=== PATIENT | female | born 1955 | race Caucasian/White ===

== ENCOUNTER → 2019-07-04 17:14 | Outpatient (CLI) | payer MEDICARE, SELFPAY ==
--- NOTE | ~2019-07-04 | MM_ITS ---
EXAMINATION: MM screening ortiz BI w андрей HISTORY: Screening mammogram TECHNIQUE: Craniocaudal and mediolateral oblique 3-D tomosynthesis images were obtained and synthetic 2-D images were generated. CAD analysis was submitted and interpreted. COMPARISON: 10/22/2006 BREAST PARENCHYMAL COMPOSITION: There are scattered areas of fibroglandular density. FINDINGS: There is no evidence of suspicious mass, calcification, or architectural distortion to sugg est malignancy in either breast. There has been no suspicious interval change. IMPRESSION: 1. No mammographic evidence of malignancy. 2. Recommend routine screening mammography in one year. BI-RADS Category 1: Negative Reviewed, dictated and finalized at location A. 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
== END ==
PROVIDERS: Visit Provider Obstetrics & Gynecology
DX: Z12.31 Encounter for screening mammogram for malignant neoplasm of breast (principal)
CPT/HCPCS: 77063; 77067

== ENCOUNTER 2020-04-07 10:49 | Outpatient (CLI) | payer MEDICARE, SELFPAY ==
--- NOTE | ~2020-04-07 | MR_ITS ---
EXAMINATION: MR brain/brain stem wo con EXAM DATE: 04/07/2020 11:42 INDICATION: Tremors. TECHNIQUE: Magnetic resonance imaging (MRI) of the brain/brain stem obtained without contrast. Sagitt al T1, axial diffusion, gradient echo (T2*), T1, T2, FLAIR sequences obtained. There is no prior st udy for comparison. FINDINGS: There are no areas of restricted diffusion to suggest acute infarction. There is no acute hemorrhage seen on the T2*, a hemosiderin sensitive sequence. No intraparenchymal brain mass lesion. There is mild periventricular and subcortical T2/FLAIR signal hyperintensity, nonspecific but probab ly related to small vessel ischemic disease (microangiopathy). There are no extra-axial collections . Flow voids are seen in the cerebral arteries on the T2-weighted sequences consistent with their ex pected patency. The orbits are unremarkable. Soft tissue is unremarkable. IMPRESSION: 1. No acute intracranial findings. 2. Mild microangiopathy. Reviewed, dictated and finalized at location A. 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
== END 2020-04-07 10:50 | disposition home or self-care (01) ==
PROVIDERS: PCP Family Medicine; Visit Provider Psychiatry & Neurology Neurology
DX: R25.1 Tremor, unspecified (principal); I73.9 Peripheral vascular disease, unspecified
CPT/HCPCS: 70551

== ENCOUNTER 2022-03-03 09:04 | Outpatient (CLI) | payer MEDICARE, SELFPAY ==
--- NOTE | ~2022-03-03 | US_ITS ---
EXAMINATION: US_BCARIMG_US DATE: 03/03/2022 10:59 CDT INDICATION: Right breast mass seen on prior examination. Biopsy requested. TECHNIQUE: Survey imaging of the right breast was performed. The hypoechoic lesion at the 1:00 posit ion, 6 cm from the nipple was targeted for aspiration. The procedure and its risk and benefits were discussed with the patient. Risks included but were not limited to pain, bleeding and infection. The patient verbalized understanding and provided written consent. A time-out was performed to document the patient's name, date of , and site of procedure. The kaylin abel's right breast was prepped and draped in usual sterile fashion. 1% lidocaine was used for loca l anesthesia. Utilizing ultrasound guidance, a 19-gauge needle was advanced into the lesion in the 4 mm hypoechoic mass. Aspiration was performed, obtaining clear fluid. There was complete resolution of the mass following aspiration. The patient tolerated procedure without immediate complication. Sterile bandages were applied over t he aspiration site(s).] FINDINGS: Successful ultrasound-guided aspiration of breast cysts. Patient tolerated procedure well w ithout complication. IMPRESSION: 1. Successful ultrasound-guided aspiration of right breast cyst with complete resolution following a spiration. Reviewed, dictated and finalized at location A. IMPRESSION: 1. Successful ultrasound-guided aspiration of right breast cyst with complete resolution following aspiration.
== END 2022-03-03 09:05 | disposition home or self-care (01) ==
PROVIDERS: PCP Family Medicine; Visit Provider Family Medicine
DX: R92.8 Other abnormal and inconclusive findings on diagnostic imaging of breast (principal)
CPT/HCPCS: 19000; 76942

== ENCOUNTER → 2023-01-25 11:07 | Outpatient (CLI) | payer MEDICARE, SELFPAY ==
--- NOTE | ~2023-01-25 | XR_ITS ---
Left Knee Technique: AP and lateral views were obtained. Clinical History: Pain Findings: No fracture or dislocation is seen. Right knee arthroplasty in place. Soft tissues are unre markable. No joint effusion is seen. Impression: No acute abnormality. Right knee arthroplasty in place. Reviewed, dictated and finalized at location . Impression: No acute abnormality. Right knee arthroplasty in place.
--- NOTE | ~2023-01-25 | XR_ITS ---
Right Knee Technique: AP and lateral views were obtained. Clinical History: Pain Findings: No fracture or dislocation is seen. Right knee arthroplasty in place. Soft tissues are unre markable. No joint effusion is seen. Impression: No acute abnormality. Right knee arthroplasty in place. Reviewed, dictated and finalized at location . Impression: No acute abnormality. Right knee arthroplasty in place.
== END ==
PROVIDERS: PCP Family Medicine; Visit Provider Nurse Practitioner Family
DX: M25.561 Pain in right knee (principal); M25.562 Pain in left knee
CPT/HCPCS: 73560

== ENCOUNTER 2024-02-11 14:36 | Outpatient (CLI) | payer MEDICARE, SELFPAY ==
--- NOTE | ~2024-02-11 | MM_ITS ---
EXAMINATION: MM screening ortiz BI w андрей HISTORY: Screening TECHNIQUE: Craniocaudal and mediolateral oblique 3-D tomosynthesis images were obtained and synthetic 2-D images were generated. CAD analysis was submitted and interpreted. COMPARISON: Comparison to multiple prior studies sequentially, with oldest reviewed study dated 06/21. BREAST PARENCHYMAL COMPOSITION: Dense: The breasts are heterogeneously dense, which may obscure small masses FINDINGS: There is no evidence of suspicious mass, calcification, or architectural distortion to sugg est malignancy in either breast. There has been no suspicious interval change. IMPRESSION: 1. No mammographic evidence of malignancy. 2. Recommend routine screening mammography in one year. BI-RADS Category 1: Negative Reviewed, dictated and finalized at location B.
== END 2024-02-11 14:37 | disposition home or self-care (01) ==
PROVIDERS: PCP Physician Assistant; Visit Provider Physician Assistant
DX: Z12.31 Encounter for screening mammogram for malignant neoplasm of breast (principal)
CPT/HCPCS: 77063; 77067

== ENCOUNTER 2024-07-11 09:11 | Outpatient (CLI) | payer MEDICARE, SELFPAY ==
--- OUTSIDE RECORDS SUMMARY | 2024-07-11 09:56 | XMS_ITS | Data Portability ---
Author Organization [facility] [employer], Main Office Address [address] [place] [address] Assessment Encounter Date Assessment Date Assessment LastModified by Organization Details LastModified Time 12/19/2023 12/19/2023 Assessment: Very severe OSAHS, AHI = 91 PLMD Iron deficiency B12 deficiency Hypoventilation Plan: The following were reviewed and explained to the patient: [facility] split night sleep study 02/21/06 sleep onset = immediate, REM onset = none, AHI = 91, ResMed small full face mask @ 12 cmH2O, PLMI = 172 Ferritin 11/29/23 2 ng/mL B12 11/29/23 367 pg/mL Elevation in periodic limb movement index may be contributed by venlafaxine. Non-pharmacologic therapy options for periodic limb movement disorder include avoidance of aggravating drugs and substances, mental alerting activities, short daily hemodialysis for patients in renal failure, exercise, leg massage, stretching calf muscles, use of a weighted blanket and applied heat. Patient will cut down on caffeine intake. BUN, Creatinine, Vitamin E, RBC folate, Iron, TIBC, ESR, Magnesium, Hgb and Hct levels are within normal limits. Patient will take FeSO4 325 mg + Vit C 500 mg daily to keep the ferritin > 75 ng/ml. Patient will take B12 1 mg daily to keep the levels > 400 pg/ml. We will hold off on dopaminergic therapy for now. We could not locate the newer [facility] sleep studies from [facility] or from our sleep center archives. PSG is medically necessary to re-determine the degree of and management of sleep apnea. Split night sleep study is scheduled for 01/28/24 7 pm at [place]. PAP is set at 12 cmH2O. PAP will remain at 12 cmH2O until repeat sleep studies are done. Oxygen supplementation: none Keep ramp start at 4 cmH2O. Keep ramp time at 5 minutes. 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 Keep humidifier level at 6. Patient is benefiting from PAP therapy. Encouraged patient to maintain PAP use more than 70% of the time. Statement of PAP use and benefits will be sent to the home care store. Educated the patient on problems and solutions associated with positive airway pressure (PAP) use. Difficulty tolerating pressure, mask leaks, intolerance of interface, nasal congestion, claustrophobic response, dry mouth, and unintentional mask removal during sleep were covered. Patient's mask leaks air. We will ensure the mask is situated properly. Patient can wear protective eye covering during sleep, and the mask can be resized. Dry mouth is a normal occurrence for people who just start out on PAP therapy because they are not used to air blowing in to the throat to hold open. Dry mouth is exacerbated for people who wear nasal PAP mask and whose jaw drops open during sleep. Not only does this create a much less efficient therapy because of leakage, it also causes dry mouth. There are a couple solutions to help prevent this type of problem. A simple solution would be to wear a chinstrap which essentially holds the jaw in place. A second solution would be a switch to a full face mask which covers both the nose and mouth. Although this is another easy solution, using a full face mask for some could seem claustrophobic or confining. There is no silver bullet solution as no single mask is right for everybody. Sometimes it takes a bit of experimentation to find a PAP mask which best meets the patient's needs as well as fits comfortably. Another tactic is to use a humidifier on your PAP machine. Most new PAP machines have integrated humidifiers. Humidification is hand when dealing with symptoms of dry mouth because the humidifier can supply both warm and room temperate air. Even a small amount of humidity in the airflow will help nasal passages to stay hydrated. If a person is using both a full face mask and a PAP machine with a heated humidifier and is still experiencing dry mouth, an ill-fitted PAP mask might be causing the problem. Leakage can be caused by a mask that is to large or small, the wrong style mask, the cushion is degraded or simply because the mask's straps aren't adjusted correctly. If leakage occurs, dry air from the room can leak in while humidification escapes. The result is reduced humidification within the circuit and resulting in dry throat and mouth. Finally, beyond factors involving the PAP machine and mask, dry mouth can also be caused or worsened by dehydration. The general recommendation to during eight 8 oz. glasses of water a day might be too little for many people. When people drink large amounts of coffee or other caffeine beverages, or sweat a lot during the day, making sure to rehydrate is an important part of PAP therapy. Patient tends to take of the PAP mask during sleep. We reassured patient that this is common. We address all other areas of headgear/nasal interface problems, especially nasal congestion. Patient can use humidification +/- chinstrap, put low-pressure alarm on blower unit to awaken patient to reposition mask and set alarm at night for patient to check headgear. Provided the patient with a list of local home care stores where positive airway pressure (PAP) units, accoutrement, and services are available. Home care store selection is based on patient's insurance carrier. Patient will setup an appointment with [facility] for supplies and pressure adjustments. A major predictor of success with use of PAP is follow-up with both the respiratory supplier and the treating physician. The download results can show the treating physician information about adherence to treatment, residual AHI while on treatment and presence of large mask leakage. This information is especially helpful if the patient has residual sleepiness despite treatment. General information on sleep disordered breathing, evaluation of sleep disordered breathing, treatment with PAP therapy, and living with PAP therapy were covered. We discussed with the patient the impact of weight on: Sleep disordered breathing Hyperlipidemia Hypertension DM CARMEN Urinary incontinence Osteoarthritis We discussed with the patient the benefit of PAP therapy on: Sleep disordered breathing Depression/Anxiety /ADHD Headaches Hypertension DM CARMEN Urinary incontinence Educated the patient on sleep hygiene measures. Relaxing rituals to rest easy, understanding foods with positive and negative impact on sleep, creating a peaceful sleep environment, timing of exercise, using herbal sleep aids, and practicing sleep-friendly meditation were covered. To determine how much sleep is needed, the patient will assess where she falls on the spectrum, examine what lifestyle factors such as work schedules and stress are affecting the quality and quantity of sleep. In general, adults need 7-9 hours of sleep. Educated the patient regarding foods that promote sleep. These include but are not limited to cherries, bananas, toast, oatmeal, and warm milk. Educated the patient regarding foods and drinks to avoid before bedtime. These include but are not limited to aged cheese, chocolate, spicy foods, tomato-based sauces, soy, ginseng tea and processed meat. Advocated influenza vaccination annually and pneumonia vaccination LETICIA. Advocated weight loss through diet and exercise. Patient's ideal body weight according to height and gender is up to 130 lbs. Encouraged patient to adjust caloric intake to maintain/achieve ideal body weight, emphasizing on fruits, vegetables, whole grains, and fat-free or low-fat products. These include lean meats, poultry, fish, beans, eggs, and nuts and foods that are low in saturated fats, trans-fats, cholesterol, salt (sodium), and glycemic index. Stressed the importance of regular exercise up to the patient's capacity limits. In this case, we recommend 20 min daily walking, 2 days a week of resistance training. Patient to monitor BP daily and bring records to PCP for further management. Follow-up: 1 week after split night sleep study Not available 12/19/2023 14:30:36 01/30/2024 01/30/2024 Assessment: Very severe OSAHS, AHI = 91 PLMD Iron deficiency B12 deficiency Hypoventilation Plan: The following were reviewed and explained to the patient: [place] split night sleep study 02/21/06 sleep onset = immediate, REM onset = none, AHI = 91, ResMed small full face mask @ 12 cmH2O, PLMI = 172 [facility] split [facility] sleep study 01/28/24 sleep onset = 15.5 minutes, REM onset = 312 minutes, AHI = 61, supine AHI = 65, Respironics large Dream Wisp nasal mask @ 5-20 cmH2O, PLMI= 7 Ferritin 11/29/23 2 ng/mL B12 11/29/23 367 pg/mL Elevation in periodic limb movement index may be contributed by venlafaxine. Non-pharmacologic therapy options for periodic limb movement disorder include avoidance of aggravating drugs and substances, mental alerting activities, short daily hemodialysis for patients in renal failure, exercise, leg massage, stretching calf muscles, use of a weighted blanket and applied heat. Patient will cut down on caffeine intake. BUN, Creatinine, Vitamin E, RBC folate, Iron, TIBC, ESR, Magnesium, Hgb and Hct levels are within normal limits. Patient will continue FeSO4 325 mg + Vit C 500 mg daily to keep the ferritin > 75 ng/ml. Patient will continue B12 1 mg daily to keep the levels > 400 pg/ml. Check ferritin and B12 one week before return. We will hold off on dopaminergic therapy for now. Educated the patient on problems and solutions associated with positive airway pressure (PAP) use. Difficulty tolerating pressure, mask leaks, intolerance of interface, nasal congestion, claustrophobic response, dry mouth, and unintentional mask removal during sleep were covered. Patient's mask leaks air. We will ensure the mask is situated properly. Patient can wear protective eye covering during sleep, and the mask can be resized. Dry mouth is a normal occurrence for people who just start out on PAP therapy because they are not used to air blowing in to the throat to hold open. Dry mouth is exacerbated for people who wear nasal PAP mask and whose jaw drops open during sleep. Not only does this create a much less efficient therapy because of leakage, it also causes dry mouth. There are a couple solutions to help prevent this type of problem. A simple solution would be to wear a chinstrap which essentially holds the jaw in place. A second solution would be a switch to a full face mask which covers both the nose and mouth. Although this is another easy solution, using a full face mask for some could seem claustrophobic or confining. There is no silver bullet solution as no single mask is right for everybody. Sometimes it takes a bit of experimentation to find a PAP mask which best meets the patient's needs as well as fits comfortably. Another tactic is to use a humidifier on your PAP machine. Most new PAP machines have integrated humidifiers. Humidification is hand when dealing with symptoms of dry mouth because the humidifier can supply both warm and room temperate air. Even a small amount of humidity in the airflow will help nasal passages to stay hydrated. If a person is using both a full face mask and a PAP machine with a heated humidifier and is still experiencing dry mouth, an ill-fitted PAP mask might be causing the problem. Leakage can be caused by a mask that is to large or small, the wrong style mask, the cushion is degraded or simply because the mask's straps aren't adjusted correctly. If leakage occurs, dry air from the room can leak in while humidification escapes. The result is reduced humidification within the circuit and resulting in dry throat and mouth. Finally, beyond factors involving the PAP machine and mask, dry mouth can also be caused or worsened by dehydration. The general recommendation to during eight 8 oz. glasses of water a day might be too little for many people. When people drink large amounts of coffee or other caffeine beverages, or sweat a lot during the day, making sure to rehydrate is an important part of PAP therapy. Patient tends to take of the PAP mask during sleep. We reassured patient that this is common. We address all other areas of headgear/nasal interface problems, especially nasal congestion. Patient can use humidification +/- chinstrap, put low-pressure alarm on blower unit to awaken patient to reposition mask and set alarm at night for patient to check headgear. [employer] 11 auto set unit with heated humidifier, supplies and Respironics large Dream Wisp nasal mask @ 5-20 cmH2O ordered. Further adjustment will be based on clinical response. Provided the patient with a list of local home care stores where positive airway pressure (PAP) units, accoutrement, and services are available. Home care store selection is based on patient's insurance carrier. Patient will setup an appointment with [facility] for supplies and pressure adjustments. A major predictor of success with use of PAP is follow-up with both the respiratory supplier and the treating physician. The download results can show the treating physician information about adherence to treatment, residual AHI while on treatment and presence of large mask leakage. This information is especially helpful if the patient has residual sleepiness despite treatment. General information on sleep disordered breathing, evaluation of sleep disordered breathing, treatment with PAP therapy, and living with PAP therapy were covered. We discussed with the patient the impact of weight on: Sleep disordered breathing Hyperlipidemia Hypertension DM CARMEN Urinary incontinence Osteoarthritis We discussed with the patient the benefit of PAP therapy on: Sleep disordered breathing Depression/Anxiety /ADHD Headaches Hypertension DM CARMEN Urinary incontinence Educated the patient on sleep hygiene measures. Relaxing rituals to rest easy, understanding foods with positive and negative impact on sleep, creating a peaceful sleep environment, timing of exercise, using herbal sleep aids, and practicing sleep-friendly meditation were covered. To determine how much sleep is needed, the patient will assess where she falls on the spectrum, examine what lifestyle factors such as work schedules and stress are affecting the quality and quantity of sleep. In general, adults need 7-9 hours of sleep. Educated the patient regarding foods that promote sleep. These include but are not limited to cherries, bananas, toast, oatmeal, and warm milk. Educated the patient regarding foods and drinks to avoid before bedtime. These include but are not limited to aged cheese, chocolate, spicy foods, tomato-based sauces, soy, ginseng tea and processed meat. Advocated influenza vaccination annually and pneumonia vaccination LETICIA. Advocated weight loss through diet and exercise. Patient's ideal body weight according to height and gender is up to 130 lbs. Encouraged patient to adjust caloric intake to maintain/achieve ideal body weight, emphasizing on fruits, vegetables, whole grains, and fat-free or low-fat products. These include lean meats, poultry, fish, beans, eggs, and nuts and foods that are low in saturated fats, trans-fats, cholesterol, salt (sodium), and glycemic index. Stressed the importance of regular exercise up to the patient's capacity limits. In this case, we recommend 20 min daily walking, 2 days a week of resistance training. Patient to monitor BP daily and bring records to PCP for further management. Follow-up: 3 months, April 2024 [email or web address] Not available 01/30/2024 09:10:39 05/07/2024 05/07/2024 Assessment: Rhinitis Very severe OSAHS, AHI = 91 PLMD Iron deficiency B12 deficiency Plan: The following were reviewed and explained to the patient: [place] split night sleep study 02/21/06 sleep onset = immediate, REM onset = none, AHI = 91, ResMed small full face mask @ 12 cmH2O, PLMI = 172 [facility] sleep [facility] 01/28/24 sleep onset = 15.5 minutes, REM onset = 312 minutes, AHI = 61, supine AHI = 65, Respironics large Dream Wisp nasal mask @ 5-20 cmH2O, PLMI= 7 Ferritin 11/29/23 2 ng/mL Ferritin 05/05/24 17 ng/mL B12 11/29/23 367 pg/mL B12 05/05/24 473 pg/mL Elevation in periodic limb movement index may be contributed by venlafaxine. Non-pharmacologic therapy options for periodic limb movement disorder include avoidance of aggravating drugs and substances, mental alerting activities, short daily hemodialysis for patients in renal failure, exercise, leg massage, stretching calf muscles, use of a weighted blanket and applied heat. Patient will cut down on caffeine intake. BUN, Creatinine, Vitamin E, RBC folate, Iron, TIBC, ESR, Magnesium, Hgb and Hct levels are within normal limits. Patient will continue FeSO4 325 mg + Vit C 500 mg daily to keep the ferritin > 75 ng/ml. Patient will continue B12 1 mg daily to keep the levels > 400 pg/ml. Check ferritin and B12 one week before return. We will hold off on dopaminergic therapy for now. PAP compliance downloaded and interpreted x 20 minutes. Data reviewed and explained to the patient. Average apnea/hypopnea index (AHI) is 5.8. Patient used PAP > 4 hours 95% of the time. PAP is set at 5-20 cmH2O. PAP will be reset at 6-12 cmH2O. Oxygen supplementation: none Keep ramp start at 4 cmH2O. Keep ramp duration at 20 minutes. Keep EPR off. Keep humidifier level at automatic mode. Keep tube temperature at automatic mode. Patient is benefiting from PAP therapy. Encouraged patient to maintain PAP use more than 70% of the time. Statement of PAP use and benefits will be sent to the home care store. Educated the patient on problems and solutions associated with positive airway pressure (PAP) use. Difficulty tolerating pressure, mask leaks, intolerance of interface, nasal congestion, claustrophobic response, dry mouth, and unintentional mask removal during sleep were covered. Patient's mask leaks air. We will ensure the mask is situated properly. Patient can wear protective eye covering during sleep, and the mask can be resized. Dry mouth is a normal occurrence for people who just start out on PAP therapy because they are not used to air blowing in to the throat to hold open. Dry mouth is exacerbated for people who wear nasal PAP mask and whose jaw drops open during sleep. Not only does this create a much less efficient therapy because of leakage, it also causes dry mouth. There are a couple solutions to help prevent this type of problem. A simple solution would be to wear a chinstrap which essentially holds the jaw in place. A second solution would be a switch to a full face mask which covers both the nose and mouth. Although this is another easy solution, using a full face mask for some could seem claustrophobic or confining. There is no silver bullet solution as no single mask is right for everybody. Sometimes it takes a bit of experimentation to find a PAP mask which best meets the patient's needs as well as fits comfortably. Another tactic is to use a humidifier on your PAP machine. Most new PAP machines have integrated humidifiers. Humidification is hand when dealing with symptoms of dry mouth because the humidifier can supply both warm and room temperate air. Even a small amount of humidity in the airflow will help nasal passages to stay hydrated. If a person is using both a full face mask and a PAP machine with a heated humidifier and is still experiencing dry mouth, an ill-fitted PAP mask might be causing the problem. Leakage can be caused by a mask that is to large or small, the wrong style mask, the cushion is degraded or simply because the mask's straps aren't adjusted correctly. If leakage occurs, dry air from the room can leak in while humidification escapes. The result is reduced humidification within the circuit and resulting in dry throat and mouth. Finally, beyond factors involving the PAP machine and mask, dry mouth can also be caused or worsened by dehydration. The general recommendation to during eight 8 oz. glasses of water a day might be too little for many people. When people drink large amounts of coffee or other caffeine beverages, or sweat a lot during the day, making sure to rehydrate is an important part of PAP therapy. Patient tends to take of the PAP mask during sleep. We reassured patient that this is common. We address all other areas of headgear/nasal interface problems, especially nasal congestion. Patient can use humidification +/- chinstrap, put low-pressure alarm on blower unit to awaken patient to reposition mask and set alarm at night for patient to check headgear. Provided the patient with a list of local home care stores where positive airway pressure (PAP) units, accoutrement, and services are available. Home care store selection is based on patient's insurance carrier. Patient will setup an appointment with [facility] for supplies and pressure adjustments. A major predictor of success with use of PAP is follow-up with both the respiratory supplier and the treating physician. The download results can show the treating physician information about adherence to treatment, residual AHI while on treatment and presence of large mask leakage. This information is especially helpful if the patient has residual sleepiness despite treatment. General information on sleep disordered breathing, evaluation of sleep disordered breathing, treatment with PAP therapy, and living with PAP therapy were covered. We discussed with the patient the impact of weight on: Sleep disordered breathing Hyperlipidemia Hypertension DM CARMEN Urinary incontinence Osteoarthritis We discussed with the patient the benefit of PAP therapy on: Sleep disordered breathing Depression/Anxiety /ADHD Headaches Hypertension DM CARMEN Urinary incontinence Educated the patient on sleep hygiene measures. Relaxing rituals to rest easy, understanding foods with positive and negative impact on sleep, creating a peaceful sleep environment, timing of exercise, using herbal sleep aids, and practicing sleep-friendly meditation were covered. To determine how much sleep is needed, the patient will assess where she falls on the spectrum, examine what lifestyle factors such as work schedules and stress are affecting the quality and quantity of sleep. In general, adults need 7-9 hours of sleep. Educated the patient regarding foods that promote sleep. These include but are not limited to cherries, bananas, toast, oatmeal, and warm milk. Educated the patient regarding foods and drinks to avoid before bedtime. These include but are not limited to aged cheese, chocolate, spicy foods, tomato-based sauces, soy, ginseng tea and processed meat. Advocated influenza vaccination annually and pneumonia vaccination LETICIA. Advocated weight loss through diet and exercise. Patient's ideal body weight according to height and gender is up to 130 lbs. Encouraged patient to adjust caloric intake to maintain/achieve ideal body weight, emphasizing on fruits, vegetables, whole grains, and fat-free or low-fat products. These include lean meats, poultry, fish, beans, eggs, and nuts and foods that are low in saturated fats, trans-fats, cholesterol, salt (sodium), and glycemic index. Stressed the importance of regular exercise up to the patient's capacity limits. In this case, we recommend 20 min daily walking, 2 days a week of resistance training. Patient to monitor BP daily and bring records to PCP for further management. Follow-up: 3 months, July 2024 Not available 05/07/2024 12:11:45 Plan of Treatment Reminders Order Date Submit Date Provider Last Modified By Organization Details Last Modified Time Details Appointments Any 30 2024 09:00A Jenny Hernandez MD Not available Not available Not available Lab ferritin, serum or plasma 2023 025 [place] ([facility]), [address] [place], [address], 07/08/2024 03:02:53 vitamin B12, serum 2023 025 [place] (Lab), [address] [place], [address], 07/08/2024 03:02:53 ferritin, serum or plasma [address] (Lab), [address] [place], [address], 05/08/2024 14:50:42 vitamin B12, serum [address] (Lab), [address] [place], [address], 05/08/2024 14:50:43 Referral None recorded. Procedures None recorded. Surgeries None recorded. Imaging MAMMO, screening , digital, bilateral - *Please call pt to schedule* 2023 024 [facility], [place], operated by [facility], [address] [facility], [place], [address], 02/12/2024 08:54:52 electroca rdiogram 2023 024 [email or web address] [facility] [address], [place], [address], 12/31/2023 09:19:39 polysomno gram, split night - No auth needed 2023 024 [facility], [address] [place], [address], 01/30/2024 10:29:05 Medication Orders ferrous sulfate 325 mg (65 mg iron) tablet 2023 024 [place] [facility], [address], [facility] [address], [place], [place], [id number], 05/07/2024 12:12:48 Vitamin C 500 mg tablet 2023 024 [place] [facility], [address], [address], [place], [place], [id number], 05/07/2024 12:12:48 Vitamin B-12 1,000 mcg tablet 2023 024 [place] [facility], [address], [address], [place], [place], [id number], 05/07/2024 12:13:36 ferrous sulfate 325 mg (65 mg iron) tablet 2023 024 [place] [facility], [address], [address], [place], [place], [id number], 01/30/2024 09:16:06 Vitamin C 500 mg tablet 2023 024 [place] [facility], [address], [address], [place], [place], [id number], 01/30/2024 09:16:06 Vitamin B-12 1,000 mcg tablet 2023 024 [place] [facility], [address], [address], [place], [place], [id number], 01/30/2024 09:16:07 ketoconaz ole 2 % shampoo [id number], [address] [place], [address], 01/29/2024 17:02:02 ferrous sulfate 325 mg (65 mg iron) tablet 2023 024 [place] [facility], [address], [address], [place], [place], [id number], 01/07/2024 16:49:02 Vitamin C 500 mg tablet 2023 024 [place] [facility], [address] [place] [address], [address], [place], [place], [id number], 01/07/2024 16:49:27 Vitamin B-12 1,000 mcg tablet 2023 024 [place] [facility], [address] [place] [address], [address], [place], [place], [id number], 01/07/2024 16:53:44 Patient TargetsNo targets recorded. Patient Instructions Encounter Date Encounter Id Patient Instructions Last Modified By Organization Details Last Modified Time 01/09/2024 [id number] dementia rating scale-2* [email or web address] Not available 01/09/2024 12:30:51 alcohol misuse* [id number] Not availab le 01/09/2024 12:30:51 depression screening* [email or web address] Not available 01/09/2024 12:30:51 multi-dimensiona l health assessment questionnaire* [email or web address] Not available 01/09/2024 14:26:54 Personalized a lt Plan and Screening Recommendations Advance Directives - Do you have one? Yes Advance Directives - Do we have your advance directive on file in your health record? Primary Prevention/Interven tion (prevents or decreases the chance of common diseases from occurring) Smoking Risk: Non Smoker Alcohol Misuse Screening: Negative Weight: Appropriate Overwei ght continue your current weight loss efforts try to lose 5% of your body weight try to lose 10% of your body weight Physical activity: Appropriate physical activity Nutrition: Good Average Fall Risk (screened today): Low Vaccines Pneumococcal: Ordered Recommended today Recommended today, but you have declined No further needed Influenza: Your next one in the fall of this year Chronic Disease Risks Stroke: Low Risk Intermediate Risk I have no recommendations Act andre diagnosis, Continue current treatment plan Heart Attack: Low risk Intermediate Risk I have no recommendations Act andre diagnosis, Continue current treatment plan Clogging of the Arteries: Low risk Intermediate Risk I have no recommendations Act andre diagnosis, Continue current treatment plan Diabetes: Low Risk Intermediate Risk Active diagnosis, Continue current treatment plan Secondary Prevention/Interven tion (detects treatable diseases before they may cause symptoms, disability, or ) Breast Cancer Screening with mammogram: Your next mammogram: Ordered Recommended today Cervical/Uterine/Ov kobi Cancer Screening: No screening necessary Osteoporosis Screening: Your next DEXA in: Ordered Recomme nded today Date Screening Last Performed: Colon Cancer Screening: In: Ordered Recomme nded Date Screening Last Performed: Eye Disease Screening: No Eye exam necessary Dementia Risk: Low I have no recommendations Depression Screening: Negative Active diagnosis, Continue current treatment plan [email or web address] Not available 01/09/2024 12:24:47 Reason for Referral None Reported. Results Created Date Observation Date Name Description Value Unit Range Abnormal Flag Note LastModifiedBy Organization Detail LastModifiedTime 05/05/20 24 05/06/2024 DOREEN TIN ferritin 17 NG/mL 16-288 normal Not Available [employer] [facility] [id number] [place] [address], [address], 05/06/2024 05:06:54 05/05/20 24 05/06/2024 VITAM IN B12 vitamin B12 473 pg/mL 200-11 00 normal Not Available [employer] [address] [place], [address], 05/06/2024 05:06:56 11/28/19 24 02/21/2006 polys omnog carole, split night No observ ation record ed. BARCODE Not Available 2023 17:23:12 12/19/19 24 elect rocar diogr am No observ ation record ed. [email or web address] [address], [place], [address], 12/19/2023 15:07:08 12/20/19 24 12/19/2023 elect rocar diogr am No observ ation record ed. BARCODE [address], [place], [address], 12/20/2023 10:17:38 12/31/19 elect rocar diogr am No observ ation record ed. [email or web address] [place] [address], [place], [address], 12/31/2023 09:01:23 01/30/20 24 01/28/2024 polys omnog carole, split night No observ ation record ed. [facility] [address] [place], [address], 01/30/2024 10:29:05 02/12/20 24 02/11/2024 MAMMO , scree maude, digit al, bilat eral No observ ation record ed. [email or web address] [facility] [address] [facility], [place], [address], 02/25/2024 12:58:02 Result Notes None recorded. Problems Name Problem SNOMED Code Status Onset Date Resolution Date Notes Provider Name and Address Organization Details Recorded Time Benign paroxysma l positiona l vertigo 244174163 Active 2022 Not Available [facility] 3 15:51:54 Cobalamin deficienc y 341970916 Active Not Available [employer] 3 15:51:54 Anemia 868529011 Active Not Available [facility] 3 15:51:54 Arthritis 7539599 Active Not Available [facility] 3 15:51:54 Hypertens andre disorder 79256809 Active Not Available [facility] 3 15:51:54 Tension-t ype headache 608696880 Active Not Available [facility] 3 15:51:54 Multiple skin tags 868501396 Active Not Available [employer] 3 15:51:54 Attention deficit hyperacti vity disorder 700127013 Active Not Available [employer] 3 15:51:54 Hypothyro idism 82407816 Active Not Available [employer] 3 15:51:54 Hiatal hernia 14148716 Active Not Available [employer] 3 15:51:54 Obesity 056982637 Active 2022 Not Available [facility] 3 15:51:54 Mixed urinary incontine nce 424893559 Active 2022 Not Available [facility] 3 15:51:54 Mixed anxiety and depressiv e disorder 244273121 Active 2022 Not Available [facility] 3 15:51:54 High hemoglobi n A1c level 264264429 Active 2023 RONEN Sebastian [address], [address], [place], [address] , [facility] 4 11:15:36 Hyperlipi demia 66340560 Active 2023 RONEN Sebastian [address], [address], [place], [address] , [facility] [employer] [facility] 4 11:18:47 Tardive dyskinesi a 015274828 Active 2023 sees a specialis t in [facility] RONEN Sebastian [address], [address], [place], [address] , [facility] [employer] [facility] 4 10:45:38 Irritable bowel syndrome character ized by constipat ion 514510630 Active 2023 Hortencia Pete RN [facility], [facility] 4 12:16:51 Bilateral carpal tunnel syndrome [id number] 491733 Active 2023 see nerve conductio n : 11/02/2023 RONEN Sebastian [address], [address], [place], [address] , [facility] 4 10:34:58 Obstructi ve sleep apnea syndrome 58748966 Active 2023 Jerod Hernandez MD [address], [address], [place], [address] , [facility] 4 15:58:15 Periodic limb movement disorder 414779844 Active 2023 Jerod Hernandez MD [address], [address], [place], [address] , [facility] 16:08:41 Iron deficienc y 15433825 Active 2023 Jerod Hernandez MD [address] [facility], [facility] [address], [place], [address] , [facility] 13:59:55 Screening for malignant neoplasm of colon Active 2023 RONEN Sebastian [address] [facility], [facility] [address], [place], [address] , [facility] 22:06:13 Notes:Medical History: Acroc hordon Tardive dyskinesia Depression/Anxiety/ADHD Tension headaches Vertigo Rhinitis with postnasal drip Obesity with very severe OSAHS, AHI = 61, 01/28/24, on autoCPAP Hypothyroidism Hyperlipidemia Hypertension T2DM Hiatal hernia with CARMEN Constipation-predominant IBS Mixed urinary incontinence Microcytic anemia Iron deficiency Vit B12 deficiency Vit D deficiency Osteoarthritis L>R CTS Procedure History: Cholecystectomy 2001 ANDREW-BSO 2002 Left knee arthroplasty 2003 Right knee arthroplasty 2004 Esophageal dilatation 2023 Left CTS release 2023 Occupational History: Retired [employer] P[employer] Mask Use History: Respironics small Dream Wear nasal mask [employer]ics large Dream Wisp nasal mask Problem Notes None recorded. Procedures Surgical History Date Name Laterality Status Provider Name and Address Organization Details Recorded Time 01/09/20 Medicare Wellness CPT Code, subsequent completed Adrianna Lopez RN [facility] [facility] 01/09/2024 12:11:38 11/19/19 EGD completed Adrianna Lopez RN [facility] [facility] 01/09/2024 12:18:10 section completed Not Available [facility] 07/19/2022 07:26:38 Cholecystectomy completed Not Available [facility] 07/19/2022 07:26:38 Knee Replacement completed Not Available [facility] 07/19/2022 07:26:38 Hysterectomy completed Not Available [facility] 07/19/2022 07:26:38 Gastric Bypass completed Not Available [facility] 07/19/2022 07:26:38 Imaging Results Imaging Date Name Status LastModified by Organization Details LastModified Time 02/21/2006 polysomnogram, split night completed [facility] Information not available 11/28/2023 17:23:12 12/19/2023 electrocardiogram completed [email or web address] [facility] [address], [place], [address], 12/19/2023 15:07:08 12/19/2023 electrocardiogram completed [facility] [address], [place], [address], 12/20/2023 10:17:38 12/31/2023 electrocardiogram completed [email or web address] [facility] [address], [place], [address], 12/31/2023 09:01:23 01/28/2024 polysomnogram, split night completed [facility] [address] [place], [address], 01/30/2024 10:29:05 02/11/2024 MAMMO, screening, digital, bilateral completed [facility] [address] [place], [address], 02/25/2024 12:58:02 Procedure Notes None recorded. Medical Equipment None Reported. Allergies Allergen ID Allergen Name Allergen Category Reaction Reaction Severity Criticality Documentation Date Start Date Code Code System Note Provider Name and Address Organization Details Recorded Time 31212 Substance with sulfonami de structure and antibacte rial mechanism of action (substanc e) medicatio n Not available Not available Not available 07/19/2022 [id number] SNOMED Not Available [facility] 3 07:34:44 Medications Name Sig Start Date Stop Date Status Note LastModified by Organization Details LastModified Time quetiapine 25 mg tablet TAKE 1 TABLET BY MOUTH EVERYDAY AT BEDTIME 04/27 completed Not Available Not Available Not Available cyclobenzap rine 10 mg tablet TAKE 1 TABLET 3 TIMES A DAY BY ORAL ROUTE NEEDED. 09/25 completed Not Available Not Available Not Available amoxicillin 500 mg capsule TAKE 1 CAPSULE BY MOUTH THREE TIMES A DAY UNTIL GONE 11/20 completed Not Available Not Available Not Available fluconazole 100 mg tablet TAKE 1 TABLET BY MOUTH EVERY DAY FOR 10 DAYS 09/25 completed Not Available Not Available Not Available buspirone 5 mg tablet 09/25 completed Not Available Not Available Not Available levothyroxi ne 175 mcg tablet TAKE 1 TABLET BY MOUTH EVERY DAY 11/27 completed Not Available Not Available Not Available bupropion HCl SR 150 mg tablet,12 hr sustained-r elease TAKE 1 TABLET BY MOUTH EVERY DAY 11/20 completed Not Available Not Available Not Available levothyroxi ne 137 mcg tablet TAKE 1 TABLET BY MOUTH IN THE MORNING active Not Available Not Available No t Available nystatin 100,000 unit/mL oral suspension Take 5 mL 4 times a day by oral route. active Not Available Not Available No t Available venlafaxine ER 37.5 mg capsule,ext ended release 24 hr TAKE 2 CAPSULES BY MOUTH DAILY X7 DAYS, THEN TAKE 1 CAPSULE DAILY X7 DAYS, THEN STOP 01/22 completed Not Available Not Available Not Available venlafaxine ER 75 mg capsule,ext ended release 24 hr TAKE 1 CAPSULE BY MOUTH DAILY active Not Available Not Available No t Available doxycycline hyclate 100 mg capsule 07/08 completed Not Available Not Available Not Available ketoconazol e 2 % shampoo APPLY TO THE AFFECTED SCALP, LATHER, LEAVE IN PLACE FOR 5MIN THEN RINSE OFF ONCE DAILY 01/28 completed Not Available Not Available Not Available BD Insulin Syringe 1 mL 25 x 1 USE DIRECTED FOR B12 SHOTS 11/26 completed Not Available Not Available Not Available Vitamin C 500 mg tablet Take 1 tablet twice a day by oral route. 2023 active Not Available Not Available Not Avai lable atorvastati n 10 mg tablet 1 tablet daily 05/07 completed Not Available Not Available Not Available azithromyci n 250 mg tablet TAKE 2 TABLETS BY MOUTH TODAY, THEN TAKE 1 TABLET DAILY FOR 4 DAYS 09/25 completed Not Available Not Available Not Available alprazolam 1 mg tablet TAKE 1 TABLET BY MOUTH PRIOR TO PROCEDURE 09/27 completed Not Available Not Available Not Available fluconazole 150 mg tablet TAKE 1 TABLET BY MOUTH EVERY DAY FOR 1 DAY MAY REPEAT IN 10 DAYS IF NEEDED 05/07 completed Not Available Not Available Not Available benzonatate 200 mg capsule Take 1 capsule 3 times a day by oral route as needed for 7 days. active Not Available Not Available No t Available Synthroid 200 mcg tablet 1 po daily 10/25 completed Not Available Not Available Not Available hydrocodone 5 mg-acetamin ophen 325 mg tablet TAKE 1 TABLET BY MOUTH 6 HOURS NEEDED FOR PAIN 05/07 completed Not Available Not Available Not Available fluticasone propionate 0.05 % topical cream 11/20 completed Not Available Not Available Not Available ondansetron HCl 8 mg tablet TAKE 1 TABLET TWICE A DAY BY ORAL ROUTE NEEDED. 09/25 completed Not Available Not Available Not Available sucralfate 1 gram tablet 11/20 completed Not Available Not Available Not Available prednisone 20 mg tablet PLEASE SEE ATTACHED FOR DETAILED DIRECTION S 09/25 completed Not Available Not Available Not Available clonazepam 0.5 mg tablet TAKE 1 TABLET(S) TWICE A DAY BY MOUTH FOR 14 DAYS. 01/22 completed Not Available Not Available Not Available clonazepam 1 mg tablet 01/22 completed Not Available Not Available Not Available clobetasol 0.05 % topical cream Apply 1 applicati on twice a day by topical route for 30 days. active Not Available Not Available No t Available phentermine 15 mg capsule TAKE 1 CAPSULE BY MOUTH EVERY DAY 09/25 completed Not Available Not Available Not Available venlafaxine ER 150 mg capsule,ext ended release 24 hr TAKE 1 CAPSULE BY MOUTH DAILY active Not Available Not Available No t Available lithium carbonate 150 mg capsule 03/04 completed Not Available Not Available Not Available amlodipine 5 mg tablet 1po daily active Not Available Not Availabl e Not Available benazepril 20 mg-hydrochl orothiazide 12.5 mg tablet TAKE 1 TABLET BY MOUTH DAILY active Not Available Not Available No t Available ciprofloxac in 500 mg tablet TAKE 1 TABLET BY MOUTH EVERY 12 HOURS FOR 5 DAYS 09/25 completed Not Available Not Available Not Available tramadol 50 mg tablet TAKE 1 TABLET BY MOUTH EVERY 6 HOURS NEEDED 11/20 completed Not Available Not Available Not Available lamotrigine 25 mg tablet TAKE 2 TABLETS BY MOUTH EVERY DAY 11/20 completed Not Available Not Available Not Available meloxicam 7.5 mg tablet Take 1 tablet every day by oral route as needed for 14 days. 11/20 completed Not Available Not Available Not Available alprazolam 0.5 mg tablet TAKE 1 TABLET BY MOUTH 3 TIMES A DAY NEEDED 03/04 completed Not Available Not Available Not Available chlordiazep oxide 5 mg capsule 09/25 completed Not Available Not Available Not Available alprazolam 0.25 mg tablet TAKE 1 TABLET BY MOUTH TWICE A DAY NEEDED 05/07 completed Not Available Not Available Not Available estradiol 0.025 mg/24 hr weekly transdermal patch apply 1 patch weekly 10/25 completed Not Available Not Available Not Available triamcinolo ne acetonide 0.1 % dental paste Take 1 applicati on twice a day by dental route for 21 days. active Not Available Not Available No t Available Synthroid 25 mcg tablet TAKE 1 TABLET BY MOUTH EVERY DAY active Not Available Not Available No t Available meclizine 25 mg tablet Take 1 tablet 3 times a day by oral route as needed. 01/22 completed Not Available Not Available Not Available lithium carbonate 300 mg capsule 03/04 completed Not Available Not Available Not Available pantoprazol e 40 mg tablet,kamryn yed release TAKE 1 (ONE) TABLET BY MOUTH 2 TIMES DAILY FOR 60 DAYS active Not Available Not Available No t Available cyanocobala min (vit B-12) 1,000 mcg/mL injection solution INJECT 1 ML INTRAMUSC ULARLY EVERY MONTH active Not Available Not Available No t Available ferrous sulfate 325 mg (65 mg iron) tablet Take 1 tablet twice a day by oral route. 2023 active Not Available Not Available Not Avai lable levothyroxi ne 150 mcg tablet TAKE 1 TABLET BY MOUTH DAILY 06/09 completed Not Available Not Available Not Available BD Luer-Erasto Syringe 3 mL 25 gauge x 1 USE TO INJECT B12 ONCE WEEKLY 07/08 completed Not Available Not Available Not Available misoprostol 100 mcg tablet 11/20 completed Not Available Not Available Not Available gabapentin 300 mg capsule TAKE 1 CAPSULE BY MOUTH THREE TIMES A DAY 05/28 completed Not Available Not Available Not Available omeprazole 20 mg capsule,del ayed release TAKE 1 CAPSULE BY MOUTH DAILY 01/08 completed Not Available Not Available Not Available chlordiazep oxide 10 mg capsule 01/22 completed Not Available Not Available Not Available benazepril 20 mg tablet 1 po daily active Not Available Not Available No t Available hydroxyzine HCl 25 mg tablet 01/22 completed Not Available Not Available Not Available gabapentin 100 mg capsule 05/28 completed Not Available Not Available Not Available ergocalcife rol (vitamin D2) 1,250 mcg (50,000 unit) capsule TAKE 1 CAPSULE BY MOUTH ONCE WEEKLY active Not Available Not Available No t Available clobetasol 0.05 % topical ointment 11/20 completed Not Available Not Available Not Available levofloxaci n 500 mg tablet TAKE 1 TABLET BY MOUTH EVERY 24 HOURS FOR 10 DAYS 10/25 completed Not Available Not Available Not Available methylpredn isolone 4 mg tablets in a dose pack TAKE 6 TABLETS ON DAY 1 DIRECTED ON PACKAGE AND DECREASE BY 1 TAB EACH DAY FOR A TOTAL OF 6 DAYS 09/25 completed Not Available Not Available Not Available propranolol 20 mg tablet 01/22 completed Not Available Not Available Not Available clobetasol 0.05 % scalp solution 11/20 completed Not Available Not Available Not Available ondansetron 4 mg disintegrat ing tablet PLACE 1 TABLET 3 TIMES A DAY BY TRANSLING UAL ROUTE FOR 30 DAYS. 09/25 completed Not Available Not Available Not Available fluticasone propionate 50 mcg/actuati on nasal spray,suspe nsion USE 1 SPRAY EVERY DAY IN EACH NOSTRIL as needed. active Not Available Not Available No t Available lamotrigine 100 mg tablet TAKE 0.5 TABLET TWICE A DAY BY ORAL ROUTE DIRECTED FOR 30 DAYS 03/04 completed Not Available Not Available Not Available estradiol 0.1 mg/24 hr weekly transdermal patch APPLY 1 PATCH WEEKLY 11/20 completed Not Available Not Available Not Available amoxicillin 875 mg-potassiu m clavulanate 125 mg tablet TAKE 1 TABLET BY MOUTH TWICE A DAY 09/25 completed Not Available Not Available Not Available Vitamin B-12 1,000 mcg tablet Take 1 tablet every other day by oral route. 2023 active Not Available Not Available Not Avai lable escitalopra m 10 mg tablet 05/28 completed Not Available Not Available Not Available escitalopra m 20 mg tablet 06/09 completed Not Available Not Available Not Available aripiprazol e 10 mg tablet 03/04 completed Not Available Not Available Not Available aripiprazol e 15 mg tablet TAKE 1 TABLET BY MOUTH EVERY DAY 01/15 completed Not Available Not Available Not Available aripiprazol e 5 mg tablet 03/04 completed Not Available Not Available Not Available bupropion HCl XL 150 mg 24 hr tablet, extended release TAKE 1 TABLET BY MOUTH DAILY active Not Available Not Available No t Available escitalopra m 5 mg tablet TAKE 1 TABLET BY MOUTH EVERY DAY 09/27 completed Not Available Not Available Not Available hydrocodone 7.5 mg-acetamin ophen 325 mg/15 mL oral solution 11/20 completed Not Available Not Available Not Available nitrofurant oin monohydrate /macrocryst als 100 mg capsule Take 1 capsule every 12 hours by oral route for 7 days. 09/27 completed Not Available Not Available Not Available duloxetine 30 mg capsule,del ayed release TAKE 1 CAPSULE BY MOUTH EVERY DAY FOR 7 DAYS 01/15 completed Not Available Not Available Not Available solifenacin 10 mg tablet TAKE 1 TABLET BY MOUTH EVERY DAY FOR 30 DAYS active Not Available Not Available No t Available fluocinolon e 0.01 % scalp oil and shower cap APPLY THIN LAYER TO DAMP SCALP BY TOPICAL ROUTE MASSAGE WELL AND COVER. LEAVE ON FOR 4 HOURS OR OVERNIGHT THEN WASH OFF 11/20 completed Not Available Not Available Not Available Boostrix Tdap 2.5 Lf unit-8 mcg-5 Lf/0.5 mL intramuscul ar suspension ADM 0.5ML IM UTD active Not Available Not Available No t Available chlorhexidi ne gluconate 0.12 % mouthwash SWISH 15 ML IN MOUTH FOR 1 MINUTE THEN SPIT AFTER BRUSHING AND BEFORE BED active Not Available Not Available No t Available aripiprazol e 2 mg tablet 11/20 completed Not Available Not Available Not Available omeprazole 20 mg tablet,kamryn yed release Take 1 tablet every day by oral route. 01/22 completed Not Available Not Available Not Available venlafaxine ER 150 mg tablet,exte nded release 24 hr Take 2 caps po daily 11/20 completed Not Available Not Available Not Available GaviLyte-G 236 gram-22.74 gram-6.74 gram-5.86 gram oral solution 04/20 completed Not Available Not Available Not Available ketorolac 30 mg/mL injection solution Inject 2 mL every day by intraveno us route for 1 day. active Not Available Not Available No t Available Myrbetriq 25 mg tablet,exte nded release Take 1 tablet every day by oral route. active Not Available Not Available No t Available Linzess 145 mcg capsule Take 1 capsule every day by oral route as directed for 90 days. 09/25 completed Not Available Not Available Not Available Shingrix (PF) 50 mcg/0.5 mL intramuscul ar suspension, kit 06/09 completed Not Available Not Available Not Available Fluzone High-Dose (PF) 180 mcg/0.5 mL intramuscul ar syringe active Not Available Not Available N ot Available Fluzone High-Dose Quad (PF) 240 mcg/0.7 mL IM syringe TO BE ADMINISTE RED BY PHARMACIS T FOR IMMUNIZAT ION active Not Available Not Available No t Available Wegovy 0.25 mg/0.5 mL subcutaneou s pen injector Inject 0.25 mg every week by subcutane ous route. 09/25 completed Not Available Not Available Not Available Vitals Date Recorded Body height Body weight Body mass index (BMI) Body temperature Heart rate Oxygen saturation Oxygen saturation in Arterial blood by Pulse oximetry Systolic blood pressure Diastolic blood pressure Provider Name and Address Organization Details Last Updated DateTime 4 162.56 cm 30204.1 4 g 37.4 kg/m2 98.1 [degF] 69 /min 98 % 98 % 126 mm[Hg] 72 mm[Hg] Sarah Beckham CMA [facility] [employer] 4 14:03:35 Date Recorded Body height Body mass index (BMI) Body weight Body temperature Heart rate Oxygen saturation Oxygen saturation in Arterial blood by Pulse oximetry Respiratory rate Systolic blood pressure Diastolic blood pressure Provider Name and Address Organization Details Last Updated DateTime 4 162.56 cm 37.2 kg/m2 94803.5 4 g 98.6 [degF] 68 /min 98 % 98 % 16 /min 124 mm[Hg] 84 mm[Hg] Adrianna Lopez RN [facility] [employer] 4 12:21:32 Date Recorded Body height Body mass index (BMI) Body weight Body temperature Heart rate Oxygen saturation Oxygen saturation in Arterial blood by Pulse oximetry Systolic blood pressure Diastolic blood pressure Provider Name and Address Organization Details Last Updated DateTime 4 162.56 cm 37.8 kg/m2 43855.3 2 g 98.1 [degF] 66 /min 98 % 98 % 118 mm[Hg] 70 mm[Hg] Sarah Beckham CMA [facility] [employer] 08:54:11 Date Recorded Heart rate Respiratory rate Provider N danielle and Address Organization Details Last Updated DateTime 01/30/2024 66 /min 15 /min Jerod Hernandez MD [address] [facility], [facility] [address], [address], [facility] [employer] 01/30/2024 09:14:27 Date Recorded Body height Body mass index (BMI) Body weight Body temperature Heart rate Oxygen saturation Oxygen saturation in Arterial blood by Pulse oximetry Systolic blood pressure Diastolic blood pressure Provider Name and Address Organization Details Last Updated DateTime 4 162.56 cm 37.8 kg/m2 32133.3 2 g 98 [degF] 66 /min 98 % 98 % 122 mm[Hg] 66 mm[Hg] Wanda Qureshi MA [facility] [employer] 4 11:51:28 Date Recorded Heart rate Respiratory rate Provider N danielle and Address Organization Details Last Updated DateTime 05/07/2024 66 /min 15 /min Jerod Hernandez MD [address] [facility], [address], [address] [employer] 05/07/2024 12:26:07 Social History Question Answer Notes LastModified by Organizat ion Details LastModified Time Tobacco Smoking Status Never Smoker Valencia paiz, [facility] [employer] 07/03/2023 10:27:25 What Is Your Level Of Alcohol Consumption? None [id number] Information not available 07/19/2022 In The 14 Days Before Symptom Onset, Have You Had Close Contact With A Laboratory-confirm ed COVID-19 While That Case Was Ill? No Information n ot available 11/28/2023 In The 14 Days Before Symptom Onset, Have You Had Close Contact With A Person Who Is Under Investigation For COVID-19 While That Person Was Ill? No Information not available 11/28/2023 Are You Currently Employed? No Retired Information not available 11/28/2023 What Type Of Diet Are You Following? REGULAR Information n ot available 11/28/2023 Do You Have An Electrostatic Air Filter? Yes Information not available 11/28/2023 Do You Have A Humidifier? No Information not available 11/28/2023 Do You Have Moisture Problems In Your Home? No Information not available 11/28/2023 What Was The Date Of Your Most Recent Tobacco Screening? 05/07/2024 Information not available 05/07/2024 Do You Have Any Pets? No Information not available 11/28/2023 Do You Use Your Seat Belt Or Car Seat Routinely? Yes Information not available 11/28/2023 Do You Have Smoke And Carbon Monoxide Detectors In Your Home? Yes Information not available 11/28/2023 Are You Passively Exposed To Smoke? No Information no t available 11/28/2023 Do You Use Any Illicit Or Recreational Drugs? No Information not available 11/28/2023 Do You Use Sunscreen Routinely? Yes Information not available 11/28/2023 Have You Recently Traveled Abroad? No Information not available 11/28/2023 Do You Have Any Dietary Restrictions? No Information not available 11/28/2023 Sex: Unknown Functional Status Question Answer Note LastModified by Organization D etails LastModified Time What is your exercise level? Moderate Information not available 11/28/2023 Mental Status None recorded. Family History Relationship Description Onset Age of this Age Resolved Age Notes LastModified by Organization Details LastModified Time Maternal Grandmother Diabetes mellitus Not available 2023 15:55:01 Maternal Grandmother Cerebrovascu lar accident Not available 02/2024 15:55:16 Brother Obstructive sleep apnea syndrome Not available 2023 15:54:35 Mother Obstructive sleep apnea syndrome Not available 2023 15:54:39 Mother Hypertensive disorder Not available 2023 15:56:49 Mother Hypothyroidi sm u5 Not available 2023 15:57:10 Sister Obstructive sleep apnea syndrome Not available 2023 15:54:42 Sister Hypothyroidi sm Not available 2023 15:57:18 Father Neoplasm of brain Not available 2023 15:54:54 Paternal Grandfather Malignant tumor of lung Not available 2023 15:55:42 Paternal Grandfather Alcoholism Not available 02/2024 15:58:07 Paternal Aunt Malignant tumor of breast Not available 2023 15:55:58 Paternal Aunt Malignant tumor of lung Not available 2023 15:56:03 Paternal Uncle Malignant tumor of lung Not available 2023 15:56:12 Maternal Uncle Diabetes mellitus Not available 2023 15:56:23 Son Hypertensive disorder Not available 2023 15:57:43 Son Alcoholism Not available 11/28/2023 15:57:56 Medical History Condition Response MRSA N SLEEP APNEA N ALLERGIES/HAYFEVER N LUNG DISEASE/DISORDER N HISTORY OF DRUG ABUSE N INSOMNIA N COPD N RADIATION / CHEMOTHERAPY N HIGH CHOLESTEROL / HYPERLIPIDEMIA Y HYPERTHYROIDISM N BLOOD DISEASES N EAR OR HEARING PROBLEMS N HYPOTHYROIDISM N SHINGLES N DEPRESSION (INCLUDING POST ) N HAVE YOU BEEN HOSPITALIZED OR SEEN IN [facility] ER IN THE PAST YEAR ? N STROKE/TIA N ULCERS N OBESITY N ANEURYSM N HISTORY WITH COMPLICATIONS WITH ANESTHES IA ? N USE OF BLOOD THINNERS N NO SIGNIFICANT PAST MEDICAL HISTORY N DIABETES, TYPE N PARATHYROID DISEASE N ENT Y SEASONAL ALLERGIES N HEARTBURN / REFLUX N HEPATITIS / LIVER DISEASE N SLEEP DISORDER N SEIZURES/EPILEPSY N HEADACHES/MIGRAINES N CHF N PACEMAKER N DIZZINESS Y HEART DISEASE/HEART PROBLEMS N AIDS/HIV N FRACTURES N HYPERTENSION Y CANCER: SPECIFY N TOURETTE'S N BLOOD TRANSFUSION N ANEMIA/BLOOD DISORDER N ANESTHESIA COMPLICATIONS N CHRONIC EAR INFECTIONS N AUTOIMMUNE DISEASE N TUBERCULOSIS N Gynecological HistoryNo gynecological history recorded. Obstetrics History GPAL:G 0 P 0 0 0 0 Immunizations Vaccine Type Date Status Note Provider Nam e and Address Organization Details Recorded Time Influenza, high-dose, quadrivalent, PF 2 completed Not Available [facility] 02/16/2023 22:31:43 pneumococcal polysaccharide PPV23 9 completed Not Available [facility] 02/16/2023 22:31:43 Influenza, high-dose, trivalent, PF 8 completed Not Available [facility] 02/16/2023 22:31:43 Pneumococcal conjugate PCV 13 8 completed Not Available [facility] 02/16/2023 22:31:43 Past Encounters Encounter ID Performer Location Encounter Start Date Encounter Closed Date Diagnosis/Indication Diagnosis SNOMED-CT Code Diagnosis ICD10 Code Diagnosis Note [id number] [facility] Camilla mena [facility] Isela derek [address], [place] [address] 09/14/2021 00:00:00 09/14/2021 13:55:04 [id number] [facility] Camilla mena [facility] [place] [address] 02/06/2022 00:00:00 02/06/2022 18:41:56 [id number] [facility] [place]illa [place] [address] [address] [address] 03/20/2022 00:00:00 03/21/2022 06:02:28 [id number] [facility] Camilla [place]riv[place] [address] 04/18/2022 00:00:00 04/18/2022 12:50:52 [id number] [facility] [address] [facility] [address] [place] [address] 06/08/2022 00:00:00 06/08/2022 11:42:40 [id number] Emely Santoyo MD [facility] Camilla mena [address] [place] [address] [place] [address] 09/11/2022 15:41:32 09/11/2022 16:42:46 Upper respiratory infection 00025434 J06.9 SxRx Simply saline nasal spray and hot packs to face. If sx worsen she is to go get a COVID test and call me with results. [id number] Emely Santoyo MD [facility] Camilla mena [address] [place] [address] [place] [address] 09/27/2022 12:26:15 09/27/2022 12:56:48 Acute sinusitis 27734909 J01.90 Candidiasis of mouth 797 55469 B37.0 Obesity 640957415 E66.9 [id number] Emely Santoyo MD [facility] Camilla mena [address] [place] [address] [place] [address] 10/03/2022 15:54:01 10/05/2022 16:01:11 Acute urinary tract infection 658421141 N39.0 [id number] Emely Santoyo MD [facility] Camilla mena [address] [place] [address] [place] [address] 11/02/2022 11:24:00 11/02/2022 12:01:09 Glossitis 59068249 K14.0 F/u with ENTTongue scraping done and wet mount done no evidence of yeast Xerostomia 70402100 R68. 2 Drink 64 OZ of water per day. Mixed urin mary jane incontinence 248799515 N39.46 Call for referral to Urologist. [id number] Emely Santoyo MD [facility] Camilla mena [address] [place] [address] [place] [address] 01/08/2023 11:05:31 01/08/2023 12:06:15 Mixed anxiety and depressive disorder 610763320 F41.8 Obesity 650194617 E66.9 Urinary incontinence 165 327898 R32 Pain of bi lateral knee joints 9942003094 56228 M25.572 [id number] RONEN Sebastian [facility] Camilla mena [address] [place] [address] [place] [address] 06/12/2023 10:23:57 06/12/2023 11:21:56 Hypothyroidism 15950422 E03.9 Anxiety 93460919 F41.9 Mixed anxi ety and depressive disorder 555309321 F41.8 Attention deficit hyperactivity disorder 268044697 F90.9 Essential hypertension 15344999 I10 Serum ari min B12 below reference range 704752778 R79.89 Anemia 735117388 D64.9 High hemog lobin A1c level 096640126 R73.09 Hyperlipidemia 87813506 E78.5 Cellulitis 276899600 L03 .90 [id number] RONEN Sebastian [address] [place] [address] 07/03/2023 10:26:52 07/03/2023 11:43:33 Overactive urinary bladder 026684994 N32.81 Nausea 183620798 R11.0 Anemia 454782060 D64.9 Depressive disorder 3548 9007 F32.A Anxiety 00724455 F41.9 Arthritis 8945525 M19.90 Attention deficit hyperactivity disorder 700745316 F90.9 Essential hypertension 66862208 I10 Hypothyroidism 57238748 E03.9 Mixed anxi ety and depressive disorder 621890917 F41.8 Serum ari min B12 below reference range 712787359 R79.89 Sleep apnea 02103134 G47 .30 [id number] RONEN Sebastian [address] [place] [address] 09/26/2023 10:47:26 09/26/2023 11:33:17 Dysphagia 93743138 R13.10 Tardive dyskinesia 19411 9007 G24.01 Bilateral tendonitis of wrists 0753010752 7337753 M67.833 M67.834 Anemia 715241423 D64.9 Anxiety 48692186 F41.9 Arthritis 5614382 M19.90 Attention deficit hyperactivity disorder 511362024 F90.9 Depressive disorder 3548 9007 F32.A Essential hypertension 88030217 I10 High hemog lobin A1c level 344618285 R73.09 Hyperlipidemia 36432761 E78.5 Hypothyroidism 11611521 E03.9 Irritable bowel syndrome characterized by constipation 040472060 K58.1 Sleep apnea 10017016 G47 .30 [id number] Jerod Hernandez MD [facility] [address] [place] [address] 11/28/2023 14:49:38 11/30/2023 08:32:10 Obstructive sleep apnea syndrome 64788778 G47.33 G47.36 G47.61 Periodic l imb movement disorder 558754122 G47.61 D50.8 E83.42 [id number] Jerod Hernandez MD [address] [address] 12/19/2023 13:51:03 12/19/2023 16:52:51 Obstructive sleep apnea syndrome 35081944 G47.33 G47.36 G47.61 Iron deficiency 15870780 E61.1 Cobalamin deficiency 190 379182 E53.8 [id number] RONEN Sebastian [facility] Camilla mena [address] [facility] [place] [address] 12/19/2023 15:04:47 12/31/2023 11:41:26 Pre-surgery testing 777919192 Z01.89 [id number] RONEN Sebastian [facility] Camilla mena [address] [place] [address] [place] [address] 01/09/2024 11:56:59 01/09/2024 12:50:45 Adult health examination 192713693 Z00.00 Screening for disorder 046565042 Z13.9 Screening mammography 24 591463 Z12.31 Renewal of prescription 022353247 Z76.0 Anemia 254037728 D64.9 Arthritis 2255069 M19.90 Attention deficit hyperactivity disorder 243501158 F90.9 Bilateral carpal tunnel syndrome 9235948091 1199540 G56.03 Cobalamin deficiency 190 544218 E53.8 High hemog lobin A1c level 533265500 R73.09 Hyperlipidemia 07825613 E78.5 Hypothyroidism 87146735 E03.9 Iron deficiency 82705465 E61.1 Irritable bowel syndrome characterized by constipation 082234376 K58.1 Mixed anxi ety and depressive disorder 009300609 F41.8 Periodic l imb movement disorder 509322823 G47.61 D50.8 E83.42 Serum ari min B12 below reference range 571244778 R79.89 Seborrheic dermatitis of scalp 479291092 L21.0 [id number] Jerod Hernandez MD [facility] [address] 01/30/2024 08:33:45 01/30/2024 15:24:58 Obstructive sleep apnea syndrome 71074033 G47.33 Iron deficiency 65881739 E61.1 Cobalamin deficiency 190 281253 E53.8 [id number] MD [facility] [place] [address] 05/07/2024 11:29:42 05/07/2024 12:29:47 Obstructive sleep apnea syndrome 17726868 G47.33 Iron deficiency 81095325 E61.1 Cobalamin deficiency 190 352000 E53.8 Health Concerns Section Related Observation LastModified by Organization Detai ls LastModified Time None Recorded Concern Status LastModified by Organization Details LastModified Time None Recorded Advance Directives Directive None Recorded Payers Encounter Date Sequence Insurance Name Policy Number Policy Hussein Covered Member ID Hussein Member ID Guarantor Name 12/19/2023 1 [facility] (MEDICARE REPLACEMENT/A DVANTAGE - HMO) [id number] Lisa Tapia [id number] Lisa Tapia 12/19/2023 1 [facility] (MEDICARE REPLACEMENT/A DVANTAGE - HMO) [id number] Lisa Tapia [id number] Lisa Tapia 01/09/2024 1 [facility] (MEDICARE REPLACEMENT/A DVANTAGE - HMO) [id number] Lisa Tapia [id number] Lisa Tapia 01/30/2024 1 [facility] (MEDICARE REPLACEMENT/A DVANTAGE - HMO) [id number] Lisa Tapia [id number] Lisa Tapia 05/07/2024 1 [facility] (MEDICARE REPLACEMENT/A DVANTAGE - HMO) [id number] Lisa Tapia [id number] Lisa Tapia Notes Date Note Type Note Provider Name and Address Organization Details Recorded Time 12/19/2023 text/html Primary care/Ref erring provider: RONEN Sebastian During the [facility] split night sleep study on 02/21/06, sleep onset = immediate, REM onset = none, AHI = 91, ResMed small full face mask was applied @ 12 cmH2O. PLMI = 172 and she is here to go over her lab workup. At home since 11/28/23, the patient uses a ResMed AirSense 10 autoset unit with heated humidification. The patient does not need the ramp to start low and go up slowly on the pressure anymore. There is some xerostomia in a.m. There is no hose/mask condensation with water.The patient wears a Respironics small Dream Wear nasal mask without chin strap. There is no claustrophobia, no nostril/nose bridge irritation, no facial rash, no facial numbness, no nosebleeding. The patient feels less refreshed upon waking and daytime alertness is no longer improved. Energy levels are sustained until noon. At home, the patient sleeps from 10 pm to 6 am and wakes up without an alarm. Snoring: moderate, since 1970s.Snorting: noChoking: noCoughing: noGasping: noGagging: noSighing: noWitnessed apnea: yesTwitching or jerking of leg(s), arm(s), body, head: yesTeeth grinding: noTeeth clenching: noSleeptalking: yesSleepwalking: noSleep crying: noBedwetting: noTongue/lip/gum/cheek biting: noSleeping with open mouth: yesSleep paralysis: noHypnagogic hallucinations: noHypnopompic hallucinations: noVivid dreams: yesDifficulty with sleep onset: yesDifficulty with sleep maintenance: yesSleep interruptions: nocturia x 1Patient wakes up with: fatigue, xerostomia, sore throat, dexterity impairmentDaytime cataplexy: noMorning hypersomnolence: yesAfternoon hypersomnolence: yesCaffeine sources in diet: coffee 1 cup per day, soda 1 can per month, chocolate 1 candy bar per month Associated medical and psychiatric conditions:Congestive heart failure: noCoronary artery disease: noMyocardial infarction: noHypertension: yesStroke: noBronchial asthma: noChronic obstructive pulmonary disease: noDepression: yesBipolar disorder: noAnxiety: yesPanic disorder: noPosttraumatic stress disorder: noAttention deficit and hyperactivity disorder: yesObsessive Compulsive disorder: noSchizophrenia: noSchizoaffective disorder: noPersonality disorder: noChronic analgesic use: noChronic sedative/hypnotic use: no EPWORTH SLEEPINESS SCALE (ESS) CHANCE OF DOZING SCORE0 = would never doze1 = slight chance of dozing2 = moderate chance of dozing3 = high chance of dozing SITUATION AND CHANCE OF DOZINGSitting and reading - 2Watching television - 1Sitting inactive in a public place (e.g. a theater or meeting) - 1As a passenger in a car for an hour without a break - 1Lying down to rest in the afternoon when circumstances permit - 3Sitting and talking to someone - 0Sitting quietly after lunch without alcohol - 1In a car, while stopped for a few minutes in the traffic - 1TOTAL SCORE 10Subjectively, patient has a moderate chance of dozing. Jerod Hernandez MD [address] [facility] [facility] [address], [place], [address], [employer] [facility] [employer] 12/19/2023 14:32:36 01/09/2024 text/html itchy scalp RONEN Sebastian [address], [place], [address], [facility] [employer] 01/16/2024 14:18:16 01/30/2024 text/html Primary care/Ref erring provider: RONEN Sebastian During the [facility] split night sleep study on 02/21/06, sleep onset = immediate, REM onset = none, AHI = 91, ResMed small full face mask was applied @ 12 cmH2O. [facility], sleep onset = 15.5 minutes, REM onset = 312 minutes, AHI = 61, supine AHI = 65, PLMI= 7. PLMI = 7 and she is on iron and B12 supplements. The patient uses a ResMed AirSense 11 autoset unit with heated humidification. The patient does not need the ramp to start low and go up slowly on the pressure anymore. There is some xerostomia in a.m. There is no hose/mask condensation with water.The patient wears a Respironics large Dream Wisp nasal mask without chin strap. There is no claustrophobia, no nostril/nose bridge irritation, no facial rash, no facial numbness, no nosebleeding. The patient feels more refreshed upon waking and daytime alertness is improved. Energy levels are sustained until noon. At home, the patient sleeps from 10 pm to 6 am and wakes up without an alarm. Snoring: moderate, since 1970s.Snorting: noChoking: noCoughing: noGasping: noGagging: noSighing: noWitnessed apnea: yesTwitching or jerking of leg(s), arm(s), body, head: yesTeeth grinding: noTeeth clenching: noSleeptalking: yesSleepwalking: noSleep crying: noBedwetting: noTongue/lip/gum/cheek biting: noSleeping with open mouth: yesSleep paralysis: noHypnagogic hallucinations: noHypnopompic hallucinations: noVivid dreams: yesDifficulty with sleep onset: yesDifficulty with sleep maintenance: yesSleep interruptions: nocturia x 1Patient wakes up with: fatigue, xerostomia, sore throat, dexterity impairmentDaytime cataplexy: noMorning hypersomnolence: yesAfternoon hypersomnolence: yesCaffeine sources in diet: coffee 1 cup per day, soda 1 can per month, chocolate 1 candy bar per month Associated medical and psychiatric conditions:Congestive heart failure: noCoronary artery disease: noMyocardial infarction: noHypertension: yesStroke: noBronchial asthma: noChronic obstructive pulmonary disease: noDepression: yesBipolar disorder: noAnxiety: yesPanic disorder: noPosttraumatic stress disorder: noAttention deficit and hyperactivity disorder: yesObsessive Compulsive disorder: noSchizophrenia: noSchizoaffective disorder: noPersonality disorder: noChronic analgesic use: noChronic sedative/hypnotic use: no EPWORTH SLEEPINESS SCALE (ESS) CHANCE OF DOZING SCORE0 = would never doze1 = slight chance of dozing2 = moderate chance of dozing3 = high chance of dozing SITUATION AND CHANCE OF DOZINGSitting and reading - 1Watching television - 1Sitting inactive in a public place (e.g. a theater or meeting) - 2As a passenger in a car for an hour without a break - 2Lying down to rest in the afternoon when circumstances permit - 3Sitting and talking to someone - 0Sitting quietly after lunch without alcohol - 1In a car, while stopped for a few minutes in the traffic - 0TOTAL SCORE 10Subjectively, patient has a moderate chance of dozing. Jerod Hernandez MD [address] [place] [address], [address], [facility] [employer] 01/30/2024 09:21:09 05/07/2024 text/html Primary care/Ref erring provider: RONEN Sebastian During the [facility] split night sleep study on 02/21/06, sleep onset = immediate, REM onset = none, AHI = 91, ResMed small full face mask was applied @ 12 cmH2O. [facility]/24, sleep onset = 15.5 minutes, REM onset = 312 minutes, AHI = 61, supine AHI = 65, PLMI= 7. PLMI = 7 and she is on iron and B12 supplements. At home since 02/21/24, the patient uses a ResMed AirSense 11 autoset unit with heated humidification. The patient does not need the ramp to start low and go up slowly on the pressure anymore. There is some xerostomia in a.m. There is no hose/mask condensation with water.The patient wears a Respironics large Dream Wisp nasal mask without chin strap. There is no claustrophobia, no nostril/nose bridge irritation, no facial rash, no facial numbness, no nosebleeding. The patient feels more refreshed upon waking and daytime alertness is improved. Energy levels are sustained until noon. At home, the patient sleeps from 10 pm to 6 am and wakes up without an alarm. Snoring: moderate, since 1970s.Snorting: noChoking: noCoughing: noGasping: noGagging: noSighing: noWitnessed apnea: yesTwitching or jerking of leg(s), arm(s), body, head: yesTeeth grinding: noTeeth clenching: noSleeptalking: yesSleepwalking: noSleep crying: noBedwetting: noTongue/lip/gum/cheek biting: noSleeping with open mouth: yesSleep paralysis: noHypnagogic hallucinations: noHypnopompic hallucinations: noVivid dreams: yesDifficulty with sleep onset: yesDifficulty with sleep maintenance: yesSleep interruptions: nocturia x 1Patient wakes up with: fatigue, xerostomia, sore throat, dexterity impairmentDaytime cataplexy: noMorning hypersomnolence: yesAfternoon hypersomnolence: yesCaffeine sources in diet: coffee 1 cup per day, soda 1 can per month, chocolate 1 candy bar per month Associated medical and psychiatric conditions:Congestive heart failure: noCoronary artery disease: noMyocardial infarction: noHypertension: yesStroke: noBronchial asthma: noChronic obstructive pulmonary disease: noDepression: yesBipolar disorder: noAnxiety: yesPanic disorder: noPosttraumatic stress disorder: noAttention deficit and hyperactivity disorder: yesObsessive Compulsive disorder: noSchizophrenia: noSchizoaffective disorder: noPersonality disorder: noChronic analgesic use: noChronic sedative/hypnotic use: no EPWORTH SLEEPINESS SCALE (ESS) CHANCE OF DOZING SCORE0 = would never doze1 = slight chance of dozing2 = moderate chance of dozing3 = high chance of dozing SITUATION AND CHANCE OF DOZINGSitting and reading - 0Watching television - 1Sitting inactive in a public place (e.g. a theater or meeting) - 1As a passenger in a car for an hour without a break - 1Lying down to rest in the afternoon when circumstances permit - 3Sitting and talking to someone - 0Sitting quietly after lunch without alcohol - 1In a car, while stopped for a few minutes in the traffic - 0TOTAL SCORE 7Subjectively, patient has a slight chance of dozing. Jerod Hernandez MD [address] [address], [place], [address], [facility] 05/07/2024 12:26:17 OBGyn Episode No OBEpisode recorded.
--- OUTSIDE RECORDS SUMMARY | 2024-07-11 09:56 | XMS_ITS | Clinical Summary ---
Author Organization [facility] Address [address] [place] [address] Care Team Providers Care Test Engineer Nuclear Equipment Name Role Phone Kevin Manzanares MD Unavailable Irvin Ponce Primary Care Provider + Source Comments [facility],non-owned Affiliates and Associated Physician Practices is amultiple site organization consisting of ambulatory clinics and hospital sitesin [place], [place], [place] and [place]. This disclosure is being madepursuant to the Care Everywhere program and may not contain all information available regarding this patient. Last updated 18.[facility] Allergies Active Allergy Reactions Criticality Noted Date Comments Sulfa Drugs Urticaria Medium 01/24/2017 Medications * Be aware that medications may not be up to date on this document. Alwaysverify current medications with the patient. Medication Sig Dispensed Refills Start Date End Date Status venlafaxine XR 24hr (EFFEXOR XR) 150 MG capsule Take 1 (one) capsule by mouth once daily 4 12/18/2016 Active benazepril-hydroC HLOROthiazide (LOTENSIN HCT) 20-12.5 MG tablet Take 1 (one) tablet by mouth once daily 4 11/14/2016 Active ferrous sulfate 325 (65 FE) MG tablet Take 1 (one) tablet by mouth daily with food Active vitamin D, ergocalciferol, (DRISDOL) 75844 UNITS capsule Take 1 capsule by mouth every 7 days 8 capsule 03/26/2017 Active amLODIPine (Norvasc) 5 MG tablet Take 1 (one) tablet by mouth once daily Active cyanocobalamin (Vitamin B-12) injection Inject 1,000 (one thousand) mcg into muscle as needed Active levothyroxine (Synthroid) 137 MCG tablet Take 1 (one) tablet by mouth once daily Active venlafaxine XR 24hr (Effexor XR) 75 MG capsule Take 1 (one) capsule by mouth once daily 11/01/2022 Active semaglutide (Wegovy) 0.25 MG/0.5ML pen Inject 0.25 (one-quarter) mg subcutaneously as directed Active solifenacin (Vesicare) 10 MG tablet Take 1 (one) tablet by mouth once daily 30 tablet 1 06/11/2023 Active buPROPion SR 12hr (Wellbutrin-SR) 150 MG tablet Take 1 (one) tablet by mouth 1 (one) time Active busPIRone (Buspar) 5 MG tablet Take 1 (one) tablet by mouth 3 times daily Active pantoprazole EC (Protonix) 40 MG tabletIndications :Pharyngoesophage al dysphagia TAKE 1 TABLET BY MOUTH TWICE DAILY 200 tablet 2 04/30/2024 Active Active Problems Problem Noted Date Diagnosed Date PITER (obstructive sleep apnea) 01/05/2023 Tardive dyskinesia 01/05/2023 Hypertension 01/05/2023 Dyslipidemia 01/05/2023 Anemia 01/05/2023 Hypothyroidism 01/04/2023 Vertigo 01/04/2023 GERD (gastroesophageal reflux disease) Mixed stress and urge urinary incontinence 11/0201/05/2023 Benign paroxysmal positional vertigo 06/07/2022 01/05/2023 Encounters Date Type Department Care Team Description 04/29/2024 Refill [facility] [place] [facility] [place] [address] Pieter Khan, [address] [address] Hong Bledsoe MD Refill Request from Last 3 Months Immunizations Name Administration Dates Next Due INFLUENZA VACCINE 03/08/2019,02/18/2018 INFLUENZA VACCINE, ADJUVANTE D, QUADR. (FLUAD QUADRIVALENT; 65Y+) (AIIV4) 02/26/2023 INFLUENZA VACCINE, HIGH-DOSE , QUADR. (FLUZONE HIGH-DOSE QUADRIVALENT; 65Y+), 0.7 ML (HD-IIV4) 03/20/2022,02/18/2018 INFLUENZA VACCINE, HIGH-DOSE , TRIV. (FLUZONE HIGH-DOSE TRIVALENT; 65Y+) (HD-IIV3) 03/08/2019,02/18/2018 INFLUENZA VACCINE, QUADR. (A FLURIA, FLUZONE QUADRIVALENT; 6MO+) (IIV4) 03/21/2019 PNEUMOCOCCAL PPSV23 03/04/2019 PNEUMOCOCCAL PPV VACCINE 02/18/2019 Pneumococcal Pcv13 Conj 02/18/2018 TDAP, HISTORIC VACCINE 12/08/2019 Zoster Hzv Vacc Recombinant Inj Im 04/17/2020, Family History Medical History Relation Name Comments Brain Tumor Father Anxiety Disorder Mother Arthritis - Rheumatoid Mother Depression Mother Hypercholesterolemia Mother Hypertension Mother Osteoporosis Mother Hypertension Other 1 grandmother uns pec Stroke Other 2 grandmother uns pec DVT - Deep Vein Thrombosis Sister a fter taking control pills Relation Name Status Comments Father Mother Other 1 Other 2 Sister Social History Tobacco Use Types Packs/Day Years Used Date Smoking Tobacco: Never Smokeless Tobacco: Never Alcohol Use Standard Drinks/Week Comments No 0 (1 standard drink = 0.6 oz pur e alcohol) PHQ-2 Answer Date Recorded Patient Health Questionnaire-2 Score 0 05/06/2023 Sex and Gender Information Value Date Recorded Sex Assigned at Not on file Gender Identity Not on file Sexual Orientation Not on file Last Filed Vital Signs Vital Sign Reading Time Taken Comments Blood Pressure 143/91 02/20/2024 11:25 AM CDT Pulse 57 02/20/2024 11:25 AM CDT Temperature 36.7 C (98 F) 02/20/2024 11:17 AM CDT Respiratory Rate 18 02/20/2024 11:25 AM CDT Oxygen Saturation 96% 02/20/2024 11:25 AM CDT Inhaled Oxygen Concentration - - Weight 97.5 kg (215 lb) 02/20/2024 9:25 AM CDT Height 162.6 cm (5' 4 ) 02/20/2024 9:25 AM CDT Body Mass Index 36.9 02/20/2024 9:25 AM CDT Plan of Treatment Upcoming Encounters Date Type Department Care Team (Late st Contact Info) Description 08/26/2024 10:00 AM CDT Office Visit [facility] [place] [address] Pieter Khan, [address] [address] [place] [address] [place] [phone] Health Maintenance Due Date Last Done Comments BONE DENSITY TESTING 1955 COLOGUARD (AGES 45-75) - COLON CA SCREENING 1955 CT COLONOGRAPHY - COLON CA SCREENING 1955 FIT - COLON CA SCREENING 1955 FLEX SIG - COLON CA SCREENING 1955 MAMMOGRAM 1955 HEPATITIS C SCREENING 02/04/1971 LIPID TESTING 07/29/2013 07/29/2008 SCREENING FOR DIABETES 08/24/2022 9, 08/20/2008, 08/20/2008, Additional history exists COVID-19 VACCINE ( - 2023- season) 2024 INFLUENZA VACCINE (#1) 2024 , 03/20/2022, 03/21/2019, Additional history exists DEPRESSION SCREENING 05/21/2024 05/07/2023 MEDICARE AWV CALENDAR YEAR 2024 Respiratory Syncytial Virus (RSV) Vaccine Pt: or over 60 yrs (1 - 1-dose 75+ series) 02/09/2028 DTAP/TDAP/TD VACCINES (2 - Td or Tdap) 12/07/2029 12/08/2019 COLON MONITORING 02/19/2034 02/20/2024, 02/20/2024 COLONOSCOPY - COLON CA SCREENING 02/19/2034 02/20/2024, 02/20/2024 Colorectal Cancer Screening 02/19/2034 PNEUMOCOCCAL VACCINE 50+ Completed 019, 02/18/2019, 02/18/2018 ZOSTER VACCINE Completed 04/17/2020, 01/16/2020 HEPATITIS B VACCINE Aged Out No longe r eligible based on patient's age to complete this topic HIB VACCINE Aged Out No longer eligi ble based on patient's age to complete this topic HPV VACCINE Aged Out No longer eligi ble based on patient's age to complete this topic MENINGOCOCCAL (Group B) VACCINE Aged Out No longer eligible based on patient's age to complete this topic MENINGOCOCCAL VACCINE Aged Out No donte alexi eligible based on patient's age to complete this topic Procedures Procedure Name Priority Date/Time Associated Diagnosis Comments ENDOSCOPY, COLON, DIAGNOSTIC Routine 02/20/2024 9:22 AM CDT Positive colorectal cancer screening using Cologuard test BASIC METABOLIC PANEL (CALCIUM TOTAL) Routine 08/21/2008 2:20 AM CDT Morbid Obesity (HCC) LIPID PROFILE Routine 07/29/2008 5:34 PM CDT Morbid Obesity (HCC) from Last 3 Months or Most Recently Relevant to Health Maintenance Results * Endoscopy, Colon, Diagnostic (02/20/2024 9:22 AM CDT) Report Endoscopy POC _ Patient Name: Lisa Tapia Procedure Date: 02/20/2024 9:22 AM Date of : 1955 Admit Type: Outpatient Age: 69 Gender: Female Attending MD: Hong Bledsoe MD, [id number] _ Procedure: Colonoscopy Indications: Positive Septin-9 assay test Providers: Hong Bledsoe MD (Doctor) Referring MD: Irvin Ponce (Referring MD) Medicines: Monitored Anesthesia Care Complications: No immediate complications. _ Estimated Blood Loss: Estimated blood loss: none. Procedure: Pre-Anesthesia Assessment: - Prior to the procedure, a History and Physical was performed, and patient medications and allergies were reviewed. The patient is competent. The risks and benefits of the procedure and the sedation options and risks were discussed with the patient. All questions were answered and informed consent was obtained. Patient identification and proposed procedure were verified by the physician, the nurse and the linen controller in the procedure room. Mental Status Examination: alert and oriented. Prophylactic Antibiotics: The patient does not require prophylactic antibiotics. Prior Anticoagulants: The patient has taken no anticoagulant or antiplatelet agents. ASA Grade Assessment: II - A patient with mild systemic disease. After reviewing the risks and benefits, the patient was deemed in satisfactory condition to undergo the procedure. The anesthesia plan was to use monitored anesthesia care (MAC). Immediately prior to administration of medications, the patient was re-assessed for adequacy to receive sedatives. The heart rate, respiratory rate, oxygen saturations, blood pressure, adequacy of pulmonary ventilation, and response to care were monitored throughout the procedure. The physical status of the patient was re-assessed after the procedure. After I obtained informed consent, the scope was passed under direct vision. Throughout the procedure, the patient's blood pressure, pulse, and oxygen saturations were monitored continuously. The Colonoscope was introduced through the anus and advanced to the cecum, identified by appendiceal orifice and ileocecal valve. The colonoscopy was performed without difficulty. The patient tolerated the procedure well. The quality of the bowel preparation was good. The ileocecal valve, appendiceal orifice, and rectum were photographed. Findings: The perianal and digital rectal examinations were normal. The colon (entire examined portion) appeared normal. Internal hemorrhoids were found during retroflexion. The hemorrhoids were Grade I (internal hemorrhoids that do not prolapse). _ Impression: - The entire examined colon is normal. - Internal hemorrhoids. - No specimens collected. Recommendation: - Discharge patient to home. - Resume previous diet. - Continue present medications. - Repeat colonoscopy in 5 years for screening purposes. - Return to GI clinic in 6 months. Procedure Code(s): --- Professional --- 93952, Colonoscopy, flexible; diagnostic, including collection of specimen(s) by brushing or washing, when performed (separate procedure) --- Technical --- 24195, Colonoscopy, flexible; diagnostic, including collection of specimen(s) by brushing or washing, when performed (separate procedure) Diagnosis Code(s): --- Professional --- K64.0, First degree hemorrhoids R79.9, Abnormal finding of blood chemistry, unspecified --- Technical --- K64.0, First degree hemorrhoids R79.9, Abnormal finding of blood chemistry, unspecified CPT copyright 2020 [employer]. All rights reserved. The codes documented in this report are preliminary and upon child support case officer review may be revised to meet current compliance requirements. Hong Bledsoe MD 02/20/2024 11:17:07 AM This report has been signed electronically. Number of Addenda: 0 Note Initiated On: 02/20/2024 9:22 AM [facility] END[facility] 02/20/2024 9:22 AM CDT Hong Bledsoe MD GI PROCEDURE ORDERAB LES [facility] [place] [address] * (ABNORMAL) BASIC METABOLIC PANEL (CALCIUM TOTAL) (08/21/2008 2:20 AM CDT) BUN 14 7.0 - 17.0 mg/dl [facility] Sodium 134(L) 137 - 145 mEq/L [facility] Potassium 3.6 3.6 - 5.0 mEq/L [facility] Chloride 100 98.0 - 107.0 mEq/L [facility] CO2 26 22.0 - 30.0 mEq/L [facility] Anion Gap 7.8 [facility] Glucose 101 75 - 110 mg/dl [facility] Creatinine 0.8 0.7 - 1.2 mg/dl [facility] Calcium 8.6 8.4 - 10.2 mg/dl [facility] eGFR by MDRD 79.2 ml/min/1.7 3m2 [facility] BLOOD SPECIMEN / Unknown 08/21/2008 2:20 AM CDT Norm Ramon MD LAB - CHEMISTRY ORD ERABLES [facility] [address] [place] [address] * (ABNORMAL) LIPID PROFILE (07/29/2008 5:34 PM CDT) Cholesterol 229(H) 120.0 - 200.0 mg/dl [facility] Triglycerides 184 0.0 - 250.0 mg/dl [facility] HDL Cholesterol 45 >40 mg/dl [facility] LDL Calculated 147.2 mg/dl [facility] Chol HDL Ratio 5.1 [facility] Comment Lipid [facility] Comment: Risk Classification HDL CHOL LDL CHOL TOTAL CHOL According to NCEP (mg/dl) (mg/dL) (mg/dl) Desirable >40 <130 < 200 Borderline/High - 130-159 200-239 High - >159 > 239 The total cholesterol to HDL cholesterol ratio may be used to predict risk for coronary heart disease in untreated patients according to data reported from the [place] Study by Ayad Coulter M.D. The predictive value in patients over 60 years of age is uncertain. Risk TOTAL CHOL/HDL RATIO MEN WOMEN 1/2 Average 3.43 3.27 Average 4.97 4.44 2X Average 9.55 7.05 3X Average 23.39 11.04 In Coronary Artery Disease patients, in whom nonpharmacological therapy has failed, the AHA recommends that drug therapy should be prescribed to lower LDL cholesterol to <100mg/dL. Drug therapy may be instituted in patients with HDL <35mg/dL. The reported LDL is a calculated result. For a more precise measurement, a direct LDL test is available, as necessary. BLOOD SPECIMEN / Unknown 07/29/2008 5:34 PM CDT Narrative [facility] - 07/29/2008 6:07 PM CDT FAX [phone] Norm Ramon MD LAB - CHEMISTRY ORD ERABLES [facility] [address] [place] [address] from Last 3 Months or Most Recently Relevant to Health Maintenance Care Teams Test Engineer Nuclear Equipment Relationship Specialty Start Date End Date Irvin Ponce PA [address] [place] [id number] PCP - General Physician [employer] Foreign Language Tutor 12/11/23 [place] [address] [facility] [address] [place] [address] Cardiovascular Disease 04/30/12
--- OUTSIDE RECORDS SUMMARY | 2024-07-11 09:56 | XMS_ITS | Data Portability ---
Author Organization [place] - [facility] , [facility] Address [address] [place] [address] Assessment No assessment recorded. Plan of Treatment Reminders Order Date Submit Date Provider Last Modified By Organization Details Last Modified Time Details Appointments None recorded. Lab None recorded. Referral None recorded. Procedures None recorded. Surgeries None recorded. Imaging None recorded. Medication Orders doxycycline hyclate 100 mg capsule 2023 024 [id number], [address] [place], [address], 10:36:58 Patient TargetsNo targets recorded. Patient Instructions Encounter Date Encounter Id Patient Instructions Last Modified By Organization Details Last Modified Time 05/11/2024 [id number] Acute Sinusitis: Care Instructions [email or web address] Not available 05/11/2024 10:36:55 Take medications as prescribed. Drink plenty of fluids. You may take Tylenol and ibuprofen as needed for pain or fever. Follow up with your primary care provider in 3 to 5 days or sooner as needed. [email or web address] Not available 05/11/2024 10:37:48 Reason for Referral None Reported. Medical Equipment None Reported. Allergies Allergen ID Allergen Name Allergen Category Reaction Reaction Severity Criticality Documentation Date Start Date Code Code System Note Provider Name and Address Organization Details Recorded Time [id number] Substance with sulfonami de structure and antibacte rial mechanism of action (substanc e) medicatio n hives Not available Not available 05/11/2024 [id number] SNOMED Not Available Included [facility] 10:17:18 Medications Name Sig Start Date Stop Date Status Note LastModified by Organization Details LastModified Time doxycycline hyclate 100 mg capsule Take one capsule by mouth twice daily x 7 days. 2023 active Not Available Not Available Not Avai lable amlodipine 5 mg tablet active ADDED BY JOAQUINA T: Not Available Not Available Not Available caffeine-sodiu m benzoate 250 mg/mL(125 mg/mL caffeine) injection soln active ADDED BY JOAQUINA T: 1 x month Not Available Not Available Not Available pantoprazole 40 mg tablet,delayed release active ADDED BY JOAQUINA T: 2 x a day Not Available Not Available Not Available bupropion HCl XL 150 mg 24 hr tablet, extended release active ADDED BY JOAQUINA T: Not Available Not Available Not Available levothyroxine active ADDED BY JOAQUINA Smith: 137 mcg Not Available Not Available Not Available solifenacin active ADDED BY JOAQUINA T: 10mg Not Available Not Available Not Available UNLISTED MEDICATION Benazepr il/hctz: : active ADDED BY JOAQUINA Smith: Benaze pril/h ctz Not Available Not Available Not Available venlafaxine ER 225 mg tablet,extende d release 24 hr active ADDED BY JOAQUINA T: Not Available Not Available Not Available Vitals None Recorded Social History None recorded. Functional Status None recorded. Mental Status None recorded. Family History Nothing Reported. Medical History Condition Response Acid reflux / GERD Y Gynecological HistoryNo gynecological history recorded. Obstetrics History GPAL:G 0 P 0 0 0 0 Past Encounters Encounter ID Performer Location Encounter Start Date Encounter Closed Date Diagnosis/Indication Diagnosis SNOMED-CT Code Diagnosis ICD10 Code Diagnosis Note [id number] SHORTY Malagon [facility] [address] [place] [address] 05/11/2024 10:31:09 05/11/2024 16:37:06 Acute sinusitis 37995344 J01.90 Discussed expected course of bacterial sinusitis. Provided counseling /treatment recommenda tions as noted below:Tyle nol and ibuprofen as needed for pain or fever.Nasa l saline rinsesHumi dification Rest, hydrationM onitor for fever, SOB, wheezing, worsening breathing difficulty Counseled on the importance of follow up if symptoms not improving with recommende d treatment plan. Patient to be seen for repeat evaluation if symptoms worsen, counseled on red flag symptoms to indicate need for emergent follow up. Patient expressed understand ing and agreement with treatment plan as outlined. Health Concerns Section Related Observation LastModified by Organization Detai ls LastModified Time None Recorded Concern Status LastModified by Organization Details LastModified Time None Recorded Advance Directives Directive None Recorded Payers Encounter Date Sequence Insurance Name Policy Number Policy Hussein Covered Member ID Hussein Member ID Guarantor Name 05/11/2024 1 [facility] [id number] Lisa Tapia [id number] Lisa Tapia 05/11/2024 3 *SELF PAY* [id number] Lisa Tapia [id number] Lisa Tapia Notes Date Note Type Note Provider Name and Address Organization Details Recorded Time 05/11/2024 text/html Call connected, patient greeted. Patient name, , telephone number, and location verified verbally with the patient. Telemedicine limitations reviewed, answered all questions the patient had about the telehealth interaction, and verbal consent obtained to treat. Clinician attests they are physically located in the following state at the time of visit: [place] Pt states they are in the state of : [place] HPI: 69 yo female presents with c/o 3 weeks of draining down the back of her throat, congestion, cough, and some blood in her phlegm. Some headaches. Has taken Coricidin with some relief, but then it got worse over the past several days. Has taken some Tylenol with some relief in symptoms. Worse in the morning.Denies any other symptoms, alleviating or aggravating factors. SHORTY Malagon [address] [facility] [address], [place], [address], [facility] - Included [facility] 05/11/2024 10:37:51 OBGyn Episode No OBEpisode recorded.
--- OUTSIDE RECORDS SUMMARY | 2024-07-11 09:56 | XMS_ITS | Clinical Summary ---
Author Organization [facility] Address [facility] [id number] Care Team Providers Care Director Of Health Education Name Role Phone Unavailable Primary Care Provider Unavailabl e Social History Tobacco Use Types Packs/Day Years Used Date Smoking Tobacco: Never Assessed Comments Unknown Sex and Gender Information Value Date Recorded Sex Assigned at Not on file Legal Sex Female 10:17 AM CDT Gender Identity Not on file Sexual Orientation Not on file Plan of Treatment Health Maintenance Due Date Last Done Comments Colorectal Cancer Screening Colonoscopy (10 Years) 1955 PHQ-2 (Physician [place]) 1965 Hepatitis C 1971 DTaP, Tdap and Td Vaccines ( 1 - Tdap) 02/09/1972 Mammogram Screening 1993 Zoster Vaccines (1 of 2) 2003 Annual Medicare Wellness Visit 2018 Dexa Scan (General) 2018 Pneumococcal Vaccine: 65+ Ye ars (1 of 1 - PCV) 2018 COVID-19 Vaccine (1 - 2023-2 5 season) 2024 Influenza Adult (#1) 2024 PHQ-2 (Physician [place]) 05/21/2024 RSV Immunization or 60+ Years (1 - 1-dose 75+ series) 02/09/2028 Meningococcal B Vaccine Aged Out No l onger eligible based on patient's age to complete this topic Meningococcal Vaccine Aged Out No donte alexi eligible based on patient's age to complete this topic RSV Immunizations Under 20 Months Aged Out No longer eligible based on patient's age to complete this topic Insurance [facility]
--- OUTSIDE RECORDS SUMMARY | 2024-07-11 09:56 | XMS_ITS | Encounter Summary ---
Author Organization [facility] Address [address] [place] [address] Care Team Providers Care Instructor Watch Assembly Name Role Phone Kevin Manzanares MD Unavailable Emely Santoyo MD Primary Care Provider Irvin Ponce Primary Care Provider + Reason for Visit * Reason Onset Date Comments Medication Issue 05/30/2023 Encounter Details Date Type Department Care Team (Late st Contact Info) Description 05/30/2023 Telephone [facility] - [employer] EQUIPMENT TESTING SPECIALIST [address] [facility] [address] [place] [address] Se Chua MD [address] [place] [address] Medication Issue Social History Tobacco Use Types Packs/Day Years [...] on file Sexual Orientation Not on file documented as of this encounter Miscellaneous Notes * Telephone Encounter - Lucero Jesus LPN - 05/30/2023 1:28 PM HAND PASTER I called the patient - she has tried other medications a long time ago. But can not remember what. The notes say she has tried myrbetriq in the past. Per patient - [facility] suggested oxybutynin , vesicare or myrbetriq. I will check with - see what he is wanting to change to and let her know. Patient is agreeable. PASTER * Telephone Encounter - Kody Sanders - 05/30/2023 12:56 PM CST The patient was given samples of Gemtesa by Dr. Chua and he wrote a prescription for the patient for this medication. When the patient went to get the prescription filled, she found out that she has a $290.00 co-pay. She wants to know if the doctor has any more samples he can give her (she's happy to drive over for the samples) or if there's another medication that the doctor can prescribe witha cheaper co-pay. She said the Gemtesa is working perfectly. CB: [phone] Thanks. PASTER documented in this encounter Plan of Treatment Upcoming Encounters Date Type Department Care Team (Late st Contact Info) Description 08/26/2024 10:00 AM CDT Office Visit [facility] - [address] [phone] [place] [address] [phone] documented as of this encounter Visit Diagnoses Not on filedocumented in this encounter Care Teams Instructor Watch Assembly Relationship Specialty Start Date End Date Emely Santoyo MD [address] [place] [address] [address] [place] [id number] PCP - General Family Medicine 01/09/17 12/10/23 Irvin Ponce PA [address] [place] [phone] PCP - General Physician Cop Breaker 12/11/23 [place] [address] [address] [place] [id number] Cardiovascular Disease 04/30/12 documented as of this encounter
--- OUTSIDE RECORDS SUMMARY | 2024-07-11 09:56 | XMS_ITS | Patient Health Summary ---
Author Organization 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 This disclosure is being madepursuant to the Care Everywhere program and may not contain all information available regarding this patient. Last updated 18.[facility] Allergies * Sulfa Drugs(Urticaria) -Medium Criticality Medications * Be aware that medications may not be up to date on this document. Alwaysverify current medications with the patient. * venlafaxine XR 24hr (EFFEXOR XR) 150 MG capsule(Started 12/18/2016) Take 1 (one) capsule by mouth once daily 4 refills left * benazepril-hydroCHLOROthiazide (LOTENSIN HCT) 20-12.5 MG tablet(Started 11/14/2016) Take 1 (one) tablet by mouth once daily 4 refills left * ferrous sulfate 325 (65 FE) MG tablet Take 1 (one) tablet by mouth daily with food * vitamin D, ergocalciferol, (DRISDOL) 33856 UNITS capsule(Started 03/26/2017) Take 1 capsule by mouth every 7 days * amLODIPine (Norvasc) 5 MG tablet Take 1 (one) tablet by mouth once daily * cyanocobalamin (Vitamin B-12) injection Inject 1,000 (one thousand) mcg into muscle as needed * levothyroxine (Synthroid) 137 MCG tablet Take 1 (one) tablet by mouth once daily * venlafaxine XR 24hr (Effexor XR) 75 MG capsule(Started 11/01/2022) Take 1 (one) capsule by mouth once daily * semaglutide (Wegovy) 0.25 MG/0.5ML pen Inject 0.25 (one-quarter) mg subcutaneously as directed * solifenacin (Vesicare) 10 MG tablet(Started 06/11/2023) Take 1 (one) tablet by mouth once daily 1 refill by 06/10/2024 * buPROPion SR 12hr (Wellbutrin-SR) 150 MG tablet Take 1 (one) tablet by mouth 1 (one) time * busPIRone (Buspar) 5 MG tablet Take 1 (one) tablet by mouth 3 times daily * pantoprazole EC (Protonix) 40 MG tablet(Started 04/30/2024) TAKE 1 TABLET BY MOUTH TWICE DAILY 2 refills by 04/30/2025 Active Problems Problem Noted Date Diagnosed Date PITER (obstructive sleep apnea) 01/05/2023 Tardive dyskinesia 01/05/2023 Hypertension 01/05/2023 Dyslipidemia 01/05/2023 Anemia 01/05/2023 Hypothyroidism 01/04/2023 Vertigo 01/04/2023 GERD (gastroesophageal reflux disease) Mixed stress and urge urinary incontinence 11/0201/05/2023 Benign paroxysmal positional vertigo 06/07/2022 01/05/2023 Immunizations * INFLUENZA VACCINE(Given 03/08/2019, 02/18/2018) * INFLUENZA VACCINE, ADJUVANTED, QUADR. (FLUAD QUADRIVALENT; 65Y+) (AIIV4)(Given 02/26/2023) * INFLUENZA VACCINE, HIGH-DOSE, QUADR. (FLUZONE HIGH-DOSE QUADRIVALENT; 65Y+), 0.7 ML (HD-IIV4)(Given 03/20/2022, 02/18/2018) * INFLUENZA VACCINE, HIGH-DOSE, TRIV. (FLUZONE HIGH-DOSE TRIVALENT; 65Y+) (HD-IIV3)(Given 03/08/2019, 02/18/2018) * INFLUENZA VACCINE, QUADR. (AFLURIA, FLUZONE QUADRIVALENT; 6MO+) (IIV4)(Given 03/21/2019) * PNEUMOCOCCAL PPSV23(Given 03/04/2019) * PNEUMOCOCCAL PPV VACCINE(Given 02/18/2019) * Pneumococcal Pcv13 Conj(Given 02/18/2018) * TDAP, HISTORIC VACCINE(Given 12/08/2019) * Zoster Hzv Vacc Recombinant Inj Im(Given 04/17/2020, 01/16/2020) Social History Tobacco Use Types Packs/Day Years [...] Mass Index 36.9 02/20/2024 9:25 AM CDT Procedures * [facility] COLONOSCOPY, DIAGNOSTIC(Performed 02/20/2024) * [facility] ED EGD FLEX TRANSORAL DX(Performed 02/20/2024) * ENDOSCOPY, COLON, DIAGNOSTIC(Performed 02/20/2024) Performed for Positive colorectal cancer screening using Cologuard test * EGD(Performed 02/20/2024) * PATHOLOGY TISSUE EXAM (STL)(Performed 12/18/2023) Performed for Diagnosis deferred * [facility] ED EGD FLEX TRANSORAL DX(Performed 12/18/2023) * EGD(Performed 12/18/2023) Performed for Pharyngoesophageal dysphagia * URINALYSIS AUTO - POINT OF CARE (AMB) [facility](Performed 05/07/2023) Performed for Mixed stress and urge urinary incontinence * VA EXCIS MOUTH MUCOSA/SUB,SIMPL REPAIR(Performed 03/21/2023) 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 * PATHOLOGY TISSUE(Performed 03/21/2023) 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 * AUDIOLOGY/TYMPANOMETRY ORDER(Performed 08/24/2022) * EGD(Performed 2017) * ESOPHAGOSCOPY/ESOPHAGOGASTRODUODENOSCOPY WITH DILATION(Performed 2017) * EGD(Performed 01/24/2017) * ESOPHAGOSCOPY/ESOPHAGOGASTRODUODENOSCOPY WITH DILATION(Performed 01/24/2017) * LAB RESULTS ORDER(Performed 01/15/2017) * LAB RESULTS ORDER(Performed 05/23/2009) * BASIC METABOLIC PANEL (CALCIUM TOTAL)(Performed 08/21/2008) Performed for Morbid Obesity (HCC) * CBC W AUTO DIFFERENTIAL(Performed 08/21/2008) Performed for Morbid Obesity (HCC) * URINALYSIS REFLEX TO MICROSCOPIC NO CULTURE(Performed 08/20/2008) Performed for Morbid Obesity (HCC) * CULTURE URINE(Performed 08/20/2008) * GLUCOSE - POINT OF CARE(Performed 08/20/2008) Performed for Morbid Obesity (HCC) * FL FLUORO UPPER GI TRACT + KUB(Performed 08/20/2008) Performed for Follow-Up Surgery NOS * GLUCOSE - POINT OF CARE(Performed 08/20/2008) Performed for Morbid Obesity (HCC) * BASIC METABOLIC PANEL (CALCIUM TOTAL)(Performed 08/20/2008) Performed for Morbid Obesity (HCC) * CBC W AUTO DIFFERENTIAL(Performed 08/20/2008) Performed for Morbid Obesity (HCC) * GLUCOSE - POINT OF CARE(Performed 08/19/2008) Performed for Morbid Obesity (HCC) * TYPE + SCREEN PANEL(Performed 08/19/2008) Performed for Morbid Obesity (HCC) * VITAMIN B1(Performed 07/29/2008) Performed for Morbid Obesity (HCC) * ZINC BLOOD(Performed 07/29/2008) Performed for Morbid Obesity (HCC) * PT-INR(Performed 07/29/2008) Performed for Morbid Obesity (HCC) * CBC W AUTO DIFFERENTIAL(Performed 07/29/2008) Performed for Morbid Obesity (HCC) * VITAMIN D 25-HYDROXY(Performed 07/29/2008) Performed for Morbid Obesity (HCC) * FOLATE RBC(Performed 07/29/2008) Performed for Morbid Obesity (HCC) * PTH INTACT(Performed 07/29/2008) Performed for Morbid Obesity (HCC) * VITAMIN B12(Performed 07/29/2008) Performed for Morbid Obesity (HCC) * TSH(Performed 07/29/2008) Performed for Morbid Obesity (HCC) * FERRITIN(Performed 07/29/2008) Performed for Morbid Obesity (HCC) * COMPREHENSIVE METABOLIC PANEL(Performed 07/29/2008) Performed for Morbid Obesity (HCC) * MAGNESIUM BLOOD(Performed 07/29/2008) Performed for Morbid Obesity (HCC) * IRON BLOOD(Performed 07/29/2008) Performed for Morbid Obesity (HCC) * LIPID PROFILE(Performed 07/29/2008) Performed for Morbid Obesity (HCC) * XR CHEST 2VW(Performed 07/29/2008) Performed for Other Specified Pre-Operative Examination Results * Endoscopy, Colon, Diagnostic (02/20/2024 9:22 AM CDT) Report Endoscopy POC _ Patient Name: Lisa Tapia Procedure Date: 02/20/2024 9:22 AM Date of : 1955 Admit Type: Outpatient Age: 69 Gender: Female Attending MD: Hong Bledsoe MD, [id number] _ Procedure: Colonoscopy Indications: Positive Septin-9 assay [...] by the physician, the nurse and the art coordinator in the procedure room. Mental Status Examination: [...] 6 months. Procedure Code(s): --- Professional --- 26678, Colonoscopy, flexible; diagnostic, including collection of specimen(s) by brushing or washing, when performed (separate procedure) --- Technical --- 49158, Colonoscopy, flexible; diagnostic, including collection of specimen(s) by brushing or washing, when performed (separate procedure) Diagnosis Code(s): --- Professional --- K64.0, First degree hemorrhoids R79.9, Abnormal finding of blood chemistry, unspecified --- Technical --- K64.0, First degree hemorrhoids R79.9, Abnormal finding of blood chemistry, unspecified CPT copyright 2020 [employer]. All rights reserved. The codes documented in this report are preliminary and upon foam charger review may be revised to meet current compliance requirements. Hong Bledsoe MD 02/20/2024 11:17:07 AM This report has been signed electronically. 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 Referring MD: Irvin Ponce (Referring MD) Medicines: Monitored Anesthesia Care Complications: No immediate complications. _ Estimated Blood Loss: Estimated blood loss was minimal. Procedure: Pre-Anesthesia Assessment: - Prior to the [...] by the physician, the nurse and the art coordinator in the procedure room. Mental Status Examination: [...] patient was re-assessed after the procedure. After obtaining informed consent, the endoscope was passed under direct vision. Throughout the procedure, the patient's blood pressure, pulse, and oxygen saturations were monitored continuously. The Endoscope was introduced through the mouth, and advanced to the afferent jejunal loop. The upper GI endoscopy was accomplished without difficulty. The patient tolerated the procedure well. Findings: The examined esophagus was normal. The Z-line was regular and was found 35 cm from the incisors. A 3 cm hiatal hernia was present. Residual gastric pouch was 6 cm in length. Evidence of a Colby-en-Y gastrojejunostomy was found. This was traversed. The xvcoe-zn-uzywydf limb was characterized by moderate stenosis. The njhjhrop-hb-xuvlpwk limb was examined. The excluded stomach was not examined as it could not be found. A benign-appearing, intrinsic moderate stenosis was found in the GJ anastomosis. This was traversed. A TTS dilator was passed through the scope. Dilation with a 12 to 15 mm anastomotic balloon dilator was performed. The dilation site was examined following endoscope reinsertion and showed moderate mucosal disruption. Estimated blood loss was minimal. _ Impression: - Normal esophagus. - Z-line regular, 35 cm from the incisors. - 3 cm hiatal hernia. - Normal gastric pouch. - Colby-en-Y gastrojejunostomy. - GJ stenosis was found. Dilated. - No specimens collected. Recommendation: - Discharge patient to home. - Resume previous diet. - Continue present medications. - Return to GI clinic in 6 months. - No aspirin, ibuprofen, naproxen, or other non-steroidal anti-inflammatory drugs. Procedure Code(s): --- Professional --- 73861, Esophagogastroduoden oscopy, flexible, transoral; with dilation of gastric/duodenal stricture(s) (eg, balloon, bougie) --- Technical --- 60403, Esophagogastroduoden oscopy, flexible, transoral; with dilation of gastric/duodenal stricture(s) (eg, balloon, bougie) Diagnosis Code(s): --- Professional --- K44.9, Diaphragmatic hernia without obstruction or gangrene Z98.0, Intestinal bypass and anastomosis status K31.89, Other diseases of stomach and duodenum R10.13, Epigastric pain R13.10, Dysphagia, unspecified --- Technical --- K44.9, Diaphragmatic hernia without obstruction or gangrene Z98.0, Intestinal bypass and anastomosis status K31.89, Other diseases of stomach and duodenum R10.13, Epigastric pain R13.10, Dysphagia, unspecified CPT copyright 2020 [employer]. All rights reserved. The codes documented in this report are preliminary and upon foam charger review may be revised to meet current compliance requirements. Hong Bledsoe MD 02/20/2024 11:22:33 AM This report has been signed electronically. Number of Addenda: 0 Note Initiated On: 02/20/2024 9:21 AM [facility] 02/20/2024 9:21 AM CDT Hong Bledsoe MD GI PROCEDURE ORDERAB LES [facility] [place] [address] * PATHOLOGY TISSUE EXAM (STL) (12/18/2023 9:28 AM CDT) Case Report Surgical Pathology Report Case: [id number] Authorizing Provider: Hong Bledsoe MD Collected: 12/18/2023 09:28 AM Ordering Location: [facility] Received: 12/18/2023 11:46 AM - Endoscopy Services Pathologist: Whitney Smith MD Specimens: A) - Esophageal Biopsy, DISTAL B) - Esophageal Biopsy, PROXIMAL 12/19/2023 5:12 PM CDT [facility] Final Diagnosis A. Esophagus, distal, biopsy: -- Squamous mucosa with no histopathologic abnormality B. Esophagus, proximal, biopsy: -- Squamous mucosa with no histopathologic abnormality 12/19/2023 5:12 PM T [facility] Gross Description Received in formalin labeled with patient's name and distal esophageal biopsy are 2 fragments of villalta tissue measuring 1 and 2 mm. Submitted entirely in cassette A1. Received in formalin labeled with patient's name and proximal esophageal biopsy are 3 fragments of villalta tissue measuring 1 mm each. Submitted entirely in cassette B1. 12/19/2023 5:12 PM T [facility] Microscopic Description Microscopic evaluation supports the diagnosis. 12/19/2023 5:12 PM T [facility] Disclaimer All histochemical and/or immunohistochemical results are interpreted with controls that demonstrate appropriate staining reactions before reporting results. Note on use of immunocytochemistry reagents: This test was developed and its performance characteristic determined by [facility], Department of Laboratory Medicine. It has not been cleared or approved by the U.S. Food and Drug Administration (FDA). The FDA has determined that such clearance or approval is not necessary. The test is used for clinical purpose. It should not be regarded as investigational or for research. This laboratory is certified to perform high complexity testing. The performance characteristics of the IHC/MARIBEL assays have been validated on formalin-fixed paraffin embedded tissues only. The assays have not been validated on decalcified tissues. Results should be interpreted with caution. 12/19/2023 5:12 PM T [facility] Embedded Images 12/19/2023 5:12 PM T [facility] Pathology/Cytology ESOPHAGEAL BIOPSY SPECIMEN / Unknown 12/18/2023 9:28 AM CDT 12/18/2023 11:46 AM CDT Miscellaneous samples (specimen) ESOPHAGEAL BIOPSY SPECIMEN / Unknown 12/18/2023 9:29 AM CDT 12/18/2023 11:46 AM CDT Hong Bledsoe MD LAB - PATHOLOGY/CYTO LOGY ORDERABLES [facility] [address] [place] [address] * EGD (12/18/2023 7:49 AM CDT) Report Endoscopy POC __ _ Patient Name: Lisa Tapia Procedure Date: 12/18/2023 7:49 AM Date of : 1955 Admit Type: Outpatient Age: 68 Gender: Female Attending MD: Hong Bledsoe MD, [id number] __ _ Procedure: Upper GI endoscopy Indications: Epigastric abdominal pain, Dysphagia Providers: Hong Bledsoe MD (Doctor) Patient Profile: She is status post laparoscopic gastric bypass in the distant past. Referring MD: Irvin Ponce (Referring MD) Medicines: Monitored Anesthesia Care Complications: No immediate complications. __ _ Estimated Blood Loss: Estimated blood loss was minimal. Procedure: Pre-Anesthesia Assessment: - Prior to the [...] by the physician, the nurse and the art coordinator in the procedure room. Mental Status Examination: alert and oriented. Prophylactic Antibiotics: The patient does not require prophylactic antibiotics. Prior Anticoagulants: The patient has taken no anticoagulant or antiplatelet agents. ASA Grade Assessment: III - A patient with severe systemic disease. After reviewing the risks and [...] patient was re-assessed after the procedure. After obtaining informed consent, the endoscope was passed under direct vision. Throughout the procedure, the patient's blood pressure, pulse, and oxygen saturations were monitored continuously. The Endoscope was introduced through the mouth, and advanced to the jejunum (surgical h/o RYGB). The upper GI endoscopy was accomplished without difficulty. The patient tolerated the procedure well. Findings: The examined esophagus was normal. Biopsies were taken with a cold forceps for histology. Verification of patient identification for the specimen was done. Estimated blood loss was minimal. The gastroesophageal junction was normal. Patient had surgical changes of RYGB, residual gastric pouch was normal. GJ anatomosis had a stricture. The examined jejunum was normal. J-J anastomosis was not reached. A benign-appearing, intrinsic moderate stenosis was found at GJ anastomosis. This was traversed. A TTS dilator was passed through the scope. Dilation with a 10 to 12 mm and a 12 to 15 mm anastomotic CRE balloon dilator was performed. The dilation site was examined following endoscope reinsertion and showed complete resolution of luminal narrowing. Estimated blood loss was minimal. __ _ Impression: - Normal esophagus. Biopsied. - Normal gastroesophageal junction. - Normal examined jejunum. - Gastric stenosis was found at GJ anastomosis. Dilated. Recommendation: - Discharge patient to home. - If you develop worsening GI bleeding or chest/abdominal pain, please come to the ER - Stop oral iron tablets for next 7 days - Stop Omeprazole 20 mg - Start Pantoprazole 40 mg PO twice daily for 2 months then once daily - Clear liquid diet today. - Mechanical soft diet starting tomorrow. - Continue present medications. - Await pathology results. - Repeat upper endoscopy in 2 months to evaluate the response to therapy. - Return to GI office as previously scheduled. - No ibuprofen, naproxen, or other non-steroidal anti-inflammatory drugs. Procedure Code(s): --- Professional --- 65597, Esophagogastroduode noscopy, flexible, transoral; with dilation of gastric/duodenal stricture(s) (eg, balloon, bougie) --- Technical --- 62521, Esophagogastroduode noscopy, flexible, transoral; with dilation of gastric/duodenal stricture(s) (eg, balloon, bougie) Diagnosis Code(s): --- Professional --- R10.13, Epigastric pain R13.10, Dysphagia, unspecified --- Technical --- R10.13, Epigastric pain R13.10, Dysphagia, unspecified CPT copyright 2020 [employer]. All rights reserved. The codes documented in this report are preliminary and upon foam charger review may be revised to meet current compliance requirements. Hong Bledsoe MD 12/18/2023 9:42:27 AM This report has been signed electronically. Number of Addenda: 0 Note Initiated On: 12/18/2023 7:49 AM [facility] 12/18/2023 7:49 AM CDT Hong Bledsoe MD GI PROCEDURE ORDERAB LES [facility] [place] [address] * URINALYSIS AUTO - POINT OF CARE (AMB) [facility] (05/07/2023 10:12 AM [facility]) Glucose UA neg [facility] [address] Bilirubin UA POCT neg [facility] [address] Ketones UA POCT neg [facility] [address] Specific [place] UA 1.[address] [facility] [address] Blood Urine POCT neg [facility] [address] pH UA 6 [facility] [address] Protein UA neg [facility] [address] Urobilinogen UA neg [facility] [address] Nitrite UA neg [facility] [address] WBC UA 1+ [facility] [address] Urine URINE / Unknown 05/07/2023 1 0:12 AM [facility] Se Chua MD LAB - POINT OF CARE ORDERABLES [facility] [address] [place] [address], [facility] [phone] * [facility] EXCIS MOUTH MUCOSA/SUB,SIMPL REPAIR (03/21/2023 6:29 PM CDT) Narrative Rudy Louise DMD - 03/21/2023 6:29 PM CDT Rudy Louise DMD 03/21/2023 6:30 PM Location: Buccal mucosa, right Procedure: Excisional biopsy Start: 9:55 AM Finish: 10:05 AM Pre-op instructions given, informed consent obtained, and surgery consent form signed. Right buccal mucosa dried. 1.0 cc of 2% lidocaine 1:100,000 epi infiltration around base of lesion. After confirming profound anesthesia, right buccal mucosal lesion excised at base with a 15 blade disposable scalpel and tissue forceps. Gauze pressure hemostasis for 5 minutes. Two 3.0 chromic gut sutures placed. Gauze pack placed for additional pressure hemostasis. No residual hemorrhage noted. Post-op instructions given. The patient was advised to take 500 mg of Tylenol every 6 hours as needed for pain and to suck on ice as needed for pain. The patient was dismissed in good condition. At this time, I, Dr. Rudy Louise, am practicing in the Oral Pathology portion of my credentials and not in the Dental capacity. Oral Pathology is the specialty of dentistry and discipline of pathology that deals with the nature, identification, and management of diseases affecting the oral and maxillofacial regions (i.e., the mouth and jaw areas). It is a science that investigates the causes, processes, and effects of these diseases. The practice of oral pathology includes the diagnosis of diseases using clinical, radiographic, microscopic, biochemical, or other examinations and the management of patients. Rudy Louise DMD, JULIETTE Rudy Louise DMD PROCEDURE/MINOR SURG ICAL ORDERABLES * PATHOLOGY TISSUE (03/21/2023 9:55 AM CDT) Case Report Surgical Pathology Report Case: [id number] Authorizing Provider: Rudy Louise DMD Collected: 03/21/2023 09:55 AM Ordering Location: [facility] Otol[facility] Received: 03/21/2023 12:31 PM Pathologist: Jesus Pulliam DDS Specimen: Oral Mucosa Biopsy, Buccal mucosa, right, excisional biopsy 03/27/2023 1:02 PM [facility] Final Diagnosis Buccal mucosa; right -- Fibroma (focal fibrous hyperplasia) 03/27/2023 1:02 PM [facility] Microscopic Description and Comment The specimen consists of two strip-like sections with a slightly domed shape surfaced by stratified squamous epithelium. The submucosa consists of dense fibrocollagneous connective tissue. 03/27/2023 1:02 PM [facility] Clinical History 68 year-old female presents with a ~0.7 x 0.4 cm pink, rubbery, smooth-surfaced, sessile, dome-shaped nodule was noted on the patient's right buccal mucosa at the level of the occlusal plane. Imp: Fibroma Op: Excision 03/27/2023 1:02 PM [facility] Gross Description The requisition and specimen(s) are identified with the patient's name, Lisa Tapia. Received in formalin, specimen A, biopsy is a 0.7 x 0.4 x 0.2 cm villalta-white tissue. The resection margin is inked black and the specimen is bisected and entirely submitted in cassette A1. [place] 03/27/2023 1:02 PM [facility] Pathologist Location at [facility] 03/27/2023 1:02 PM [facility] Disclaimer The performance characteristics of all immunohistochemical and indirect immunofluorescence stains (if any) cited in this report were determined by the Histopathology Laboratory of [facility]. Some of these tests were developed by our own laboratory and have not been cleared or approved by the US Food and Drug Administration. The FDA does not require this test to go through premarket FDA review. These tests are used for clinical purposes. They should not be regarded as investigational or for research. This laboratory is certified under the Clinical Laboratory Improvement Amendments (CLIA) as qualified to perform high complexity clinical laboratory testing. This case has been personally reviewed and interpreted by the attending (teaching) pathologist. 03/27/2023 1:02 PM [facility] Embedded Images 03/27/2023 1:02 PM [facility] Pathology/Cytology BIOPSY SPECIMEN / Unknown Collection / Unknown 03/21/2023 9:55 AM CDT 03/21/2023 12:31 PM CDT Comment:Please accession to Dr. David Pulliam, Oral and Maxillofacial Pathologist.Rudy Seymour Rudy Louise DMD LAB - PATHOLOGY/CYTO LOGY ORDERABLES [facility] [address] [phone] * AUDIOLOGY/TYMPANOMETRY ORDER (08/24/2022 1:22 PM CDT) Tavia Vasquez AUD[facility]OLOGY SERVICES ORDERABLES * EGD (2017 10:29 AM CDT) Narrative [facility] - 2017 10:29 AM CDT Se Isidro MD 2017 10:29 AM [facility] Operative Report OPERATIVE REPORT PATIENT:Lisa Tpaia MR#: ADMIT DATE: 2017 9:04 AM ACCT#: DATE OF SURGERY: 01/24/2017 : 1955 PHYSICIAN: Se Isidro MD 62 yrs Body mass index is 42.91 kg/(m^2). PREOPERATIVE DIAGNOSES: Dysphagia n/v POSTOPERATIVE DIAGNOSES: SAME Marginal ulcer Gastric anastomotic stricture Surgeon: Se Isidro MD METER TESTER: none PROCEDURES PERFORMED: Esophagogastrojejunoscopy w/ dilation to 15 mm ANESTHESIA: MAC by anesthesia department PROCEDURE: The patient was brought to the GI suite and placed in standard position. MAC anesthesia was administered. The gastroscope was inserted into the oral pharynx and passed through the upper esophagus then advanced to the GE junction and into the stomach pouch. The Z line was identified at 37 cm. There was no hiatal hernia present. The anastomosis was inspected. The scope was not able to transverse the anastomosis. The gastrojejunal anastomosis appeared about 8 mm in diameter. A balloon dilation was performed by positioning the mid portion of the balloon across the gastrojejunal stricture. Multiple dilations were performed, one min at each diameter beginning at 12 mm, followed by 13.5 mm, with final dilation at 15 mm with 2 dilations at each diameter. The gastrojejunal anastamosis was inspected and found to have a marginal ulcer located at the anterior aspect of the anastomosis. There was no bleeding present. It was superfiical in depth but the entire anastomosis was edematous.The length of the gastric pouch was 5 cm. Blind jejunal limb was relatively short. The scope was further advanced into the colby limb for 20 cm. The colby limb appeared normal without obstruction or bile reflux. No significant blind jejunal limb was present. The gastric pouch lining was normal in appearance without evidence of fistulas or erosions. The GE junction also was normal without evidence of inflammatory changes. The gastroscope was withdrawn examining the esophagus during removal. The patient tolerated the procedure well and was taken to recovery room in stable condition. COMPLICATIONS: None. Plan: f/u in office in one month Se Isidro MD Se Isidro MD GI PROCEDURE ORDERAB LES [facility] [place] [address] * EGD (01/24/2017 11:38 AM CDT) Narrative [facility] - 01/24/2017 11:38 AM CDT Se Isidro MD 01/24/2017 11:38 AM [facility] Operative Report OPERATIVE REPORT PATIENT:Lisa Tapia MR#: ADMIT DATE: 01/24/2017 10:16 AM ACCT#: DATE OF SURGERY: 01/24/2017 : 1955 PHYSICIAN: Se Isidro MD 61 yrs There is no height or weight on file to calculate BMI. PREOPERATIVE DIAGNOSES: Dysphagia n/v POSTOPERATIVE DIAGNOSES: SAME Marginal ulcer Gastric anastomotic stricture Surgeon: Se Isidro MD METER TESTER: none PROCEDURES PERFORMED: Esophagogastrojejunoscopy w/ dilation ANESTHESIA: MAC by anesthesia department PROCEDURE: The patient was brought to the GI suite and placed in standard position. MAC anesthesia was administered. The gastroscope was inserted into the oral pharynx and passed through the upper esophagus then advanced to the GE junction and into the stomach pouch. The Z line was identified at 37 cm. There was no hiatal hernia present. The anastomosis was inspected. The scope was not able to transverse the anastomosis. The gastrojejunal anastomosis appeared about 8 mm in diameter. A balloon dilation was performed by positioning the mid portion of the balloon across the gastrojejunal stricture. Multiple dilations were performed, one min at each diameter beginning at 12 mm, followed by 13.5 mm, with final dilation at 13.5 mm. The gastrojejunal anastamosis was inspected and found to have a marginal ulcer located at the anterior aspect of the anastomosis. There was no bleeding present. It was superfiical in depth but the entire anastomosis was edematous.The length of the gastric pouch was 5 cm. The scope was further advanced into the colby limb for 20 cm. The colby limb appeared normal without obstruction or bile reflux. No significant blind jejunal limb was present. The gastric pouch lining was normal in appearance without evidence of fistulas or erosions. The GE junction also was normal without evidence of inflammatory changes. The gastroscope was withdrawn examining the esophagus during removal. The patient tolerated the procedure well and was taken to recovery room in stable condition. COMPLICATIONS: None. Plan: repeat EGD in 2 weeks approximately Se Isidro MD Se Isidro MD [place] [address] * LAB RESULTS ORDER (01/15/2017) Only the most recent of2 resultswithin the time period is included. Se Isidro MD LAB - THERAPEUTIC DR UG MONITORING ORDERABLES * (ABNORMAL) CBC W AUTO DIFFERENTIAL (08/21/2008 2:20 AM CDT) Only the most recent of3 resultswithin the time period is included. WBC 7.9 4.5 - 11.0 1000/mm3 [facility] RBC 4.08(L) 4.2 - 5.4 10X6 [facility] Hemoglobin 12.0 12.0 - 16.0 gm/dl [facility] Hematocrit 36.4 36.0 - 48.0 % [facility] MCV 89.2 80.0 - 99.0 fl [facility] MCH 29.4 25.0 - 31.0 pg [facility] MCHC 33.0 32.0 - 36.0 gm/dl [facility] RDW 13.7 11.5 - 14.5 % [facility] Platelet Count 213 130.0 - 400.0 1000/mm3 [facility] Granulocytes % 56.7 40.0 - 70.0 % [facility] Lymphocytes % Manual 34.2 22.0 - 40.0 % [facility] Monocytes % 8.2 2.0 - 10.0 % [facility] Eosinophils % 0.6 0.0 - 6.0 % [facility] Basophils % 0.3 0.0 - 3.0 % [facility] Comment Manual Diff Not Indicated [facility] Granulocytes Absolute 4.50 1.8 - 7.7 1000/mm3 [facility] BLOOD SPECIMEN / Unknown 08/21/2008 2:20 AM CDT Norm Spaulding MD LAB - HEMATOLOGY OR DERABLES Performing Organization Address City/State/[facility] Co de Phone Number [facility] [address] [place] [address] * (ABNORMAL) BASIC METABOLIC PANEL (CALCIUM TOTAL) (08/21/2008 2:20 AM CDT) Only the most recent of2 resultswithin the time period is included. BUN 14 7.0 - 17.0 mg/dl [facility] Sodium 134(L) 137 - 145 mEq/L [facility] Potassium 3.6 3.6 - 5.0 mEq/L [facility] Chloride 100 98.0 - 107.0 mEq/L [facility] CO2 26 22.0 - 30.0 mEq/L [facility] Anion Gap 7.8 [facility] Glucose 101 75 - 110 mg/dl [facility] Creatinine 0.8 0.7 - 1.2 mg/dl [facility] Calcium 8.6 8.4 - 10.2 mg/dl [facility] eGFR by MDRD 79.2 ml/min/1.7 3m2 [facility] BLOOD SPECIMEN / Unknown 08/21/2008 2:20 AM CDT Norm Spaulding MD LAB - CHEMISTRY ORD ERABLES Performing Organization Address City/[facility] Co de Phone Number [facility] [address] [place] [address] * URINALYSIS ROUTINE AUTO (08/20/2008 1:30 PM CDT) Color UA GREEN [facility] Character UA CLOUDY [facility] Specific [place] UA 1.030 1.005 - 1.0300 [facility] pH UA 6.0 4.6 - 8.0 pH Units [facility] Leukocyte UA TRACE Negative /ul [facility] Nitrite UA NEGATIVE Negative [facility] Protein UA 30 Negative mg/dl [facility] Glucose UA NEGATIVE Normal mg/dl [facility] Ketone UA 15 Negative mg/dl [facility] Urobilinogen UA 0.2 Normal Sherron Units [facility] Bilirubin UA Negative Negative mg/dl [facility] Blood UA LARGE Negative /ul [facility] WBC UA 10-20 /HPF [facility] RBC UA 50-100 /cmm [facility] Epithelial Cell UA 5-10 /HPF [facility] Casts UA 2-5 /LPF [facility] Bacteria UA NEGATIVE [facility] Comment UA 1+ mucus [facility] URINE / Unknown 08/20/2008 1 :30 PM CDT Alejandra Greene MD LAB - URINALYSIS ORD ERABLES Performing Organization Address [facility] Co de Phone Number [facility] [address] [place] [address] * CULTURE URINE (08/20/2008 1:30 PM CDT) Result [facility] Comment: Final CULTURE No growth. URINE SPECIMEN COLLECTION, CATHETERIZED / Unknown 08/20/2008 1:30 PM CDT 08/20/2008 1:41 PM CDT Narrative Resulting Agency Comment Performed By [facility] [address] [place] [address] Alejandra Greene MD LAB - MICROBIOLOGY O RDERABLES Performing Organization Address City/[facility]/ZIP Co de Phone Number [facility] [address] [place] [address] * (ABNORMAL) GLUCOSE - POINT OF CARE (08/20/2008 11:52 AM CDT) Only the most recent of3 resultswithin the time period is included. Pathologist [facility] Glucose WB/POC 117(H) 75 - 110 mg/dl [facility] BLOOD SPECIMEN / Unknown 08/20/2008 11:52 AM CDT Norm Spaulding MD LAB - POINT OF CARE ORDERABLES Performing Organization Address [facility] Co de Phone Number [facility] [address] [place] [address] * FL FLUORO UPPER GI TRACT + KUB (08/20/2008 8:27 AM CDT) Anatomical Region Laterality Modality Abdomen Other 08/20/2008 8:27 AM CDT Narrative 08/20/2008 8:47 AM CDT Indication- Morbid obesity. Status post gastric bypass. Technique- Cupola Melting Supervisor KUB was obtained. Full strength Omnipaque 350 was administered and multiple images of the epigastric region were obtained. Final full abdominal film was obtained following completion of the procedure. Findings- Cupola Melting Supervisor view demonstrates surgical clips in the epigastric region and multiple areas of skin lindsey consistent with previous laparoscopic procedure. A surgical drain is present in the epigastric region. A few mildly prominent bowel loops are present on dye house helper film, consistent with mild ileus. There no findings suggestive of juan obstruction. After administration of oral Omnipaque, the esophagus empties into a small gastric remnant. This, in turn, empties readily into small bowel. Impression- Normal postsurgical appearance status post gastric bypass. There is no evidence of postsurgical leak or obstruction. Read By- LORRIE Fleming By- LORRIE GARCIA M.D. Released Date Time- 08/20/0847 Ina FROST M.D. NORM MANZANARES ROGER A REF- ALEJANDRA GTZ- SCP- Procedure Note Lorrie Garcia - 08/20/2008 Indication- Morbid obesity. Status post gastric bypass. Technique- Cupola Melting Supervisor KUB was obtained. Full strength Omnipaque 350 was administered and multiple images of the epigastric region were obtained. Final full abdominal film was obtained following completion of the procedure. Findings- Cupola Melting Supervisor view demonstrates surgical clips in the epigastric region and multiple areas of skin lindsey consistent with previous laparoscopic procedure. A surgical drain is present in the epigastric region. A few mildly prominent bowel loops are present on dye house helper film, consistent with mild ileus. There no findings suggestive of juan obstruction. After administration of oral Omnipaque, the esophagus empties into a small gastric remnant. This, in turn, empties readily into small bowel. Impression- Normal postsurgical appearance status post gastric bypass. There is no evidence of postsurgical leak or obstruction. Read By- LORRIE GARCIA M.D. Released By- LORRIE GARCIA M.D. Released Date Time- 08/20/0847 Ina FROST M.D. NORM MANZANARES ROGER A REF- CON- JALADI,ALEJANDRA PCP- SCP- Norm Spaulding MD FLUOROSCOPY ORDERAB LES * TYPE + SCREEN PANEL (08/19/2008 9:00 AM CDT) ABO Rh A Pos [facility] Antibody Screen Neg [facility] BLOOD SPECIMEN / Unknown 08/19/2008 9:00 AM CDT Norm Spaulding MD LAB - BLOOD BANK OR DERABLES Performing Organization Address City/[facility]/ZIP Co de Phone Number [facility] [address] [place] [address] * ZINC BLOOD (07/29/2008 5:35 PM CDT) Zinc 69 60 - 120 mcg/dl [facility] Comment Ref Lab [facility] Comment: Comments and Normal Ranges for Component Zinc(mcg/dl) TEST INFORMATION/ Zinc, Serum Circulating zinc concentrations are dependent on albumin status and are depressed with malnutrition. Zinc may also be lowered with infection, inflammation, stress, oral contraceptives, and . Zinc may be elevated with zinc supplementation or fasting. Elevated zinc concentrations may interfere with copper absorption. BLOOD SPECIMEN / Unknown 07/29/2008 5:35 PM CDT Narrative [facility] - 07/31/2008 11:22 PM CDT FAX [phone] Resulting Agency Comment Performed By [address] [address] Norm Spaulding MD LAB - CHEMISTRY ORD ERABLES Performing Organization Address City/[facility]/ZIP Co de Phone Number [facility] [address] [place] [address] * VITAMIN B1 (07/29/2008 5:35 PM CDT) Vitamin B1 Whole Blood 9 8 - 30 ug/dl [facility] Comment Ref Lab [facility] Comment: Comments and Normal Ranges for Component Thiamine(ug/dl) INTERPRETIVE DATA/ Vitamin B1, Plasma Total thiamine, measured as thiamine (vitamin B1) and thiamine monophosphate, is reported. However, the biologically active form of the vitamin, thiamine diphosphate (TDP), is best measured in whole blood, and is not found in measurable concentration in plasma. Plasma thiamine concentration reflects recent intake rather than body stores. BLOOD SPECIMEN / Unknown 07/29/2008 5:35 PM CDT [facility] - 08/05/2008 7:50 AM CDT FAX [phone] Resulting Agency Comment Performed By [address] [address] Norm Spaulding MD LAB - CHEMISTRY ORD ERABLES Performing Organization Address [facility] Co de Phone Number [address] [address] * PT-INR (07/29/2008 5:35 PM CDT) PT 10.4 9.4 - 11.2 seconds [facility] INR 1.0 0.9 - 1.1 [facility] Interpretation INR [facility] Comment: Conventional Anticoagulation INR 2.0-3.0 Intensive Anticoagulation INR 2.5-3.5 BLOOD SPECIMEN / Unknown 07/29/2008 5:35 PM CDT [facility] - 07/29/2008 6:00 PM CDT FAX [phone] Norm Spaulding MD LAB - COAGULATION O RDERABLES Performing Organization Address [facility] de Phone Number [address] [address] * PTH INTACT (07/29/2008 5:34 PM CDT) PTH Intact 60.7 14 - 72 pg/ml [facility] Calcium 10.0 8.4 - 10.2 mg/dl [facility] BLOOD SPECIMEN / Unknown 07/29/2008 5:34 PM CDT [facility] - 07/30/2008 9:36 AM CDT FAX [phone] Resulting Agency Comment Performed By [facility] - [address] [address] Norm Spaulding MD LAB - CHEMISTRY ORD ERABLES Performing Organization Address City/[facility]/ZIP Co de Phone Number [address] [address] * FOLATE RBC (07/29/2008 5:34 PM CDT) [facility] Folate RBC 302 280 - 791 ng/ml [facility] Hct 42.2 % [facility] BLOOD SPECIMEN / Unknown 07/29/2008 5:34 PM CDT [facility] - 07/30/2008 9:59 AM CDT FAX [phone] Resulting Agency Comment Performed By [facility] [address] [address] Norm Spaulding MD LAB - CHEMISTRY ORD ERABLES Performing Organization Address [facility] Co de Phone Number [address] [address] * (ABNORMAL) VITAMIN D 25-HYDROXY (07/29/2008 5:34 PM CDT) [facility] Vitamin D, 25 Hydroxy 13.40(L) 30 - 100 ng/ml [facility] BLOOD SPECIMEN / Unknown 07/29/2008 5:34 PM CDT [facility] - 07/31/2008 12:52 PM CDT FAX [phone] Resulting Agency Comment Performed By [address] [address] Norm Spaulding MD LAB - CHEMISTRY ORD ERABLES Performing Organization Address City/[facility]/ZIP Co de Phone Number [address] [address] * (ABNORMAL) COMPREHENSIVE METABOLIC PANEL (07/29/2008 5:34 PM CDT) [facility] BUN 16 7.0 - 17.0 mg/dl [facility] Sodium 138 137 - 145 mEq/L [facility] Potassium 3.9 3.6 - 5.0 mEq/L [facility] Chloride 98 98.0 - 107.0 mEq/L [facility] Glucose 99 75 - 110 mg/dl [facility] Creatinine 1.1 0.7 - 1.2 mg/dl [facility] AST 29 14.0 - 36.0 U/L [facility] Alkaline Phosphatase 84 38.0 - 126.0 U/L [facility] Calcium 9.7 8.4 - 10.2 mg/dl [facility] Bilirubin Total 0.2 0.2 - 1.3 mg/dl [facility] Albumin 4.7 3.5 - 5.0 gm/dl [facility] Protein Total 8.3(H) 6.3 - 8.2 gm/dl [facility] CO2 28 22.0 - 30.0 mEq/L [facility] ALT 26 9.0 - 52.0 U/L [facility] eGFR by MDRD 54.8 ml/min/1.7 3m2 [facility] BLOOD SPECIMEN / Unknown 07/29/2008 5:34 PM CDT [facility] - 07/29/2008 6:07 PM CDT FAX [phone] Norm Spaulding MD LAB - CHEMISTRY ORD ERABLES Performing Organization Address City/[facility]/ZIP Co de Phone Number [address] [address] * MAGNESIUM BLOOD (07/29/2008 5:34 PM CDT) Magnesium 2.1 1.6 - 2.3 mg/dl [facility] BLOOD SPECIMEN / Unknown 07/29/2008 5:34 PM CDT [facility] - 07/29/2008 6:07 PM CDT FAX [phone] Norm Spaulding MD LAB - CHEMISTRY ORD ERABLES Performing Organization Address City/[facility] Co de Phone Number [address] [address] * IRON BLOOD (07/29/2008 5:34 PM CDT) Iron 59 37.0 - 170.0 ug/dl [facility] BLOOD SPECIMEN / Unknown 07/29/2008 5:34 PM CDT [facility] - 07/29/2008 6:07 PM CDT FAX [phone] Norm Spaulding MD LAB - CHEMISTRY ORD ERABLES Performing Organization Address City/[facility]/ZIP Co de Phone Number [address] [address] * (ABNORMAL) VITAMIN B12 (07/29/2008 5:34 PM CDT) Vitamin B12 202(L) 211 - 911 pg/ml [facility] BLOOD SPECIMEN / Unknown 07/29/2008 5:34 PM CDT [facility] - 07/30/2008 9:34 AM CDT FAX [phone] Resulting Agency Comment Performed By [address] [address] Norm Spaulding MD LAB - CHEMISTRY ORD ERABLES Performing Organization Address City/[facility]/ZIP Co de Phone Number [address] [address] * TSH (07/29/2008 5:34 PM CDT) TSH 1.590 0.35 - 5.50 uIU/ml [facility] BLOOD SPECIMEN / Unknown 07/29/2008 5:34 PM CDT [facility] - 07/30/2008 9:33 AM CDT FAX [phone] Resulting Agency Comment Performed By [address] [address] Norm Spaulding MD LAB - CHEMISTRY ORD ERABLES Performing Organization Address City/[facility]/ZIP Co de Phone Number [address] [address] * FERRITIN (07/29/2008 5:34 PM CDT) Ferritin 57.7 10 - 291 ng/ml [facility] BLOOD SPECIMEN / Unknown 07/29/2008 5:34 PM CDT [facility] - 07/30/2008 9:30 AM CDT FAX [phone] Resulting Agency Comment Performed By [facility] - [facility] [address] [place] [address] Norm Spaulding MD LAB - CHEMISTRY ORD ERABLES [facility] [address] [place] [address] * (ABNORMAL) LIPID PROFILE (07/29/2008 5:34 PM CDT) Cholesterol 229(H) 120.0 - 200.0 mg/dl [facility] Triglycerides 184 0.0 - 250.0 mg/dl [facility] HDL Cholesterol 45 >40 mg/dl [facility] LDL Calculated 147.2 mg/dl [facility] Chol HDL Ratio 5.1 [facility] Comment Lipid [facility] Comment: Risk Classification HDL CHOL LDL CHOL TOTAL CHOL According to NCEP (mg/dl) (mg/dL) (mg/dl) Desirable >40 <130 < 200 Borderline/High - 130-159 200-239 High - >159 > 239 The total cholesterol to HDL cholesterol ratio may be used to predict risk for coronary heart disease in untreated patients according to data reported from the Olar Study by Ayad Coulter M.D. The predictive [...] SPECIMEN / Unknown 07/29/2008 5:34 PM CDT [facility] - 07/29/2008 6:07 PM CDT FAX [phone] Norm Spaulding MD LAB - CHEMISTRY ORD ERABLES [facility] [address] [place] [address] * XR CHEST PA AND LATERAL (07/29/2008 4:30 PM CDT) Anatomical Region Laterality Modality Chest Other 07/29/2008 4:30 PM CDT Narrative 07/29/2008 6:08 PM CDT Chest two views from 07/29/2008 Indication- Preanesthesia evaluation. PA and lateral radiographs of the chest were obtained. The heart and mediastinum are within normal limits. The lungs are well expanded and are clear. Impression- No evidence of active cardiopulmonary disease. Read By- JARRED TRENT M.D. Released By- JARRED TRENT M.D. Released Date Time- 07/29/081807 Machinery Cleaner- O NORM MANZANARES ATT- NORM SPAULDING REF- CON- PCP- SCP- Procedure Note Jarred Trent MD - 07/29/2008 Chest two views from 07/29/2008 Indication- Preanesthesia evaluation. PA and lateral radiographs of the chest were obtained. The heart and mediastinum are within normal limits. The lungs are well expanded and are clear. Impression- No evidence of active cardiopulmonary disease. Read By- JARRED TRENT M.D. Released By- JARRED TRENT M.D. Released Date Time- 07/29/081807 Machinery Cleaner- MEO ADM- NORM SPAULDING ATT- NORM SPAULDING REF- CON- PCP- SCP- Norm Spaulding MD DIAGNOSTIC IMAGING ORDERABLES Care Teams Gluer Machine Setup Operator Relationship Specialty Start Date End Date Irvin Ponce PA [address] [place] [address] PCP - General Physician Supervisor [employer] 12/11/23 [place] [address] [address] Cardiovascular Disease 04/30/12
--- OUTSIDE RECORDS SUMMARY | 2024-07-11 09:56 | XMS_ITS | Clinical Summary ---
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 Active cyanocobalamin (Vitamin B-12) 1,000 mcg/mL injection Inject 1 mL (1,000 mcg total) into the muscle as instructed as needed Once a month. Active ergocalciferol (VITAMIN D) 50,000 unit capsule Take 1 capsule (50,000 Units total) by mouth once a week 1 Active benazepril-hydr oCHLOROthiazide (LOTENSIN HCT) 5-6.25 mg per tabletIndicatio ns:hypertension Take 1 tablet by mouth daily Active Active Problems Problem Noted Date Diagnosed Date Tardive dyskinesia 11/04/2020 Assessment & Plan (01/10/2023 7:47 PM CDT): She has involuntary movements by history and observed again on exam today including dyskinesia of mouth, hands, and trunk. This is most likely consistent with tardive dyskinesia given the pattern and temporal relationship to exposure to aripiprazole and/or brexpiprazole. It is possible that these symptoms may continue to improve with additional time, and I would strongly recommend that she avoid dopamine blocking medications in the future as these could worsen symptoms. I counseled her that there are medications that are sometimes used to treat tardive dyskinesia but they can have side effects including worsening of depression, so we again agreed this is not the best option at this point given that her movement symptoms are relatively mild and seem to be improving somewhat already, and because her mood symptoms are finally somewhat more stable compared to a period of worsening in the recent past. 1. Avoid dopamine blocking medications, including haloperidol (Haldol), risperidone (Risperdal), olanzapine (Zyprexa), aripiprazole (Abilify), lurasidone (Latuda), metoclopromide (Reglan), and prochlorperazine (Compazine), brexpiprazole (Rexulti). 2. Anticipate continued gradual improvement of involuntary mouth movements. She knows to call me with any change in symptoms. Assessment & Plan (11/04/2020 4:33 PM CDT): She has involuntary movements by history and observed to some extent on exam today including dyskinesia of mouth, hands, and trunk. These may be consistent with tardive dyskinesia given the pattern and temporal relationship to exposure to aripiprazole and/or brexpiprazole. It is possible that these symptoms may continue to improve with additional time, and I would strongly recommend that she avoid dopamine blocking medications in the future as these could worsen symptoms. I counseled her that there are medications that are sometimes used to treat tardive dyskinesia but they can have side effects including worsening of depression, so I would not recommend this given that her movement symptoms are relatively mild and seem to be improving somewhat already, and because mood symptoms are finally somewhat more stable compared to a period of worsening in the recent past. 1. Avoid dopamine blocking medications, including haloperidol (Haldol), risperidone (Risperdal), olanzapine (Zyprexa), aripiprazole (Abilify), lurasidone (Latuda), metoclopromide (Reglan), and prochlorperazine (Compazine), brexpiprazole (Rexulti). 2. Anticipate continued gradual improvement of involuntary mouth movements and call me with any change in symptoms. 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 Her UPDRS III is lower than 2 years ago. The etiology is not clear but given the comorbid involuntary movements that may represent tardive dyskinesia in setting of exposure to aripiprazole and brexipiprazole, the most likely etiology may be drug induced parkinsonism. These symptoms do not seem to be interfering with activities of daily living so it is reasonable to continue to monitor for now as they may improve over time. 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 The etiology is not clear but given the comorbid involuntary movements that may represent tardive dyskinesia in setting of exposure to aripiprazole and brexipiprazole, the most likely etiology may be drug induced parkinsonism. These symptoms do not seem to be interfering with activities of daily living so it is reasonable to continue to monitor for now as they may improve over time. Cervicalgia 07/19/2015 Fatty tumor 08/21/2012 Surgical History Surgery Date Site/Laterality Comments SECTION 05/21/1985 - 05/20/1986 REPLACEMENT TOTAL KNEE 05/21/2004 - 05/20/2005 OTONIEL-EN-Y PROCEDURE 05/21/2009 - 05/20/2010 GALLBLADDER SURGERY 05/21/1999 - 05/20/2000 Medical History Medical History Date Comments Depression Dyslipidemia Family History Medical History Relation Name Comments Brain cancer Father Relation Name Status Comments Father (Age 35) Mother Alive Social History Tobacco Use Types Packs/Day Years Used Date Smoking Tobacco: Never Tobacco Cessation:Counseling Given: Not Answered Personal Safety Answer Date Recorded Getting School Help Needed Not on file 08/03 Comments Unknown Sex and Gender Information Value Date Recorded Sex Assigned at Not on file 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 Sex Female 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 Gender Identity Not on file Sexual Orientation Not on file Obstetrics History Last Filed Vital Signs Vital Sign Reading Time Taken Comments Blood Pressure 135/67 01/10/2023 1:46 PM CDT Pulse 76 01/10/2023 1:46 PM CDT Temperature 36.4 C (97.6 F) 11/03/2020 2:08 PM CDT Respiratory Rate - - Oxygen Saturation 97% 09/11/2012 8:53 AM CDT Inhaled Oxygen Concentration - - Weight 125.6 kg (276 lb 12.8 oz) 01/10/2023 1:46 PM CDT Height 162.6 cm (5' 4 ) 01/10/2023 1:46 PM CDT Body Mass Index 47.51 01/10/2023 1:46 PM CDT Plan of Treatment Health Maintenance Due Date Last Done Comments Colon Cancer Screening-Colonoscopy 1955 Depression Screening 1953 Fall Risk Assessment 1953 Hepatitis C Screening 1953 Hepatitis B Screening 1971 Well Visit 65+ 2018 Breast Cancer Screening-Mammogram 02/13/2023 022, 02/12/2022 Influenza Vaccine (#1) 2024 9, 03/08/2019, 02/18/2018 Osteoporosis Screening-Bone Density Scan 02/11/2024 02/10/2022 DTaP/Tdap/Td Vaccine (2 - Td or Tdap) 12/07/2029 Pneumococcal vaccine 65+ Completed 019, 02/18/2019, 02/18/2018 Zoster Vaccine Completed 04/17/2020, 01/16/2020 Insurance MED[employer]ARE [employer] Care Teams Rate Clerk Passenger Relationship Specialty Start Date End Date Emely Santoyo MD [facility] [address] PCP - General Family Medicine 05/04/20
--- OUTSIDE RECORDS SUMMARY | 2024-07-11 09:56 | XMS_ITS | Referral Summary ---
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
--- OUTSIDE RECORDS SUMMARY | 2024-07-11 09:56 | XMS_ITS | Referral Summary ---
Author Organization [facility] Address [address] [place] [address] Care Team Providers Care Addictions Therapist Name Role Phone Kevin Manzanares MD Unavailable Irvin Ponce Primary Care Provider + Source Comments [facility],non-owned Affiliates and Associated Physician Practices is amultiple site organization consisting of ambulatory clinics and hospital sitesin [place], [place], [place] and [place]. This disclosure is being madepursuant to the Care Everywhere program and may not contain all information available regarding this patient. Last updated 18.[facility] Encounters Date Type Department Care Team Description 04/29/2024 Refill [facility] [place] [address] Pieter Khan, [address] [phone] Hong Bledsoe MD Refill Request from Last 3 Months Allergies Active Allergy Reactions Criticality Noted Date [...] with food Active vitamin D, ergocalciferol, (DRISDOL) 16643 UNITS capsule Take 1 capsule by mouth [...] Benign paroxysmal positional vertigo 06/07/2022 01/05/2023 Immunizations Name Administration Dates Next Due INFLUENZA [...] Zoster Hzv Vacc Recombinant Inj Im 04/17/2020, Social History Tobacco Use Types Packs/Day Years [...] Mass Index 36.9 02/20/2024 9:25 AM CDT Functional Status Functional Status Response Date of Assess ment Is person deaf or have serious hearing difficult y? No 02/20/2024 Is person blind or have serious difficulty seein g? No 02/20/2024 Does person have serious dif ficulty walking/climbing stairs? No 02/20/2024 Does person have difficulty dressing/bathing? No 02/20/2024 Does person have difficulty doing errands alone? No 02/20/2024 Cognitive Status Response Date of Assessm ent Does person have difficulty concentrating/remembering/making decisions? No 02/20/2024 Plan of Treatment Upcoming Encounters Date Type Department Care Team (Late st Contact Info) Description 08/26/2024 10:00 AM CDT Office [place] [address] Pieter Khan, [address] [place] [address] [place] [address] [place] [address] Procedures Procedure Name Priority Date/Time Associated Diagnosis [...] Gender: Female Attending MD: Hong Bledsoe MD, [id number] _ Procedure: Colonoscopy Indications: Positive Septin-9 assay [...] by the physician, the nurse and the package sealer in the procedure room. Mental Status Examination: [...] 6 months. Procedure Code(s): --- Professional --- 47005, Colonoscopy, flexible; diagnostic, including collection of specimen(s) by brushing or washing, when performed (separate procedure) --- Technical --- 26179, Colonoscopy, flexible; diagnostic, including collection of specimen(s) by brushing or washing, when performed (separate procedure) Diagnosis Code(s): --- Professional --- K64.0, First degree hemorrhoids R79.9, Abnormal finding of blood chemistry, unspecified --- Technical --- K64.0, First degree hemorrhoids R79.9, Abnormal finding of blood chemistry, unspecified CPT copyright 2020 [employer]. All rights reserved. The codes documented in this report are preliminary and upon certified dialysis technician review may be revised to meet current compliance requirements. Hong Bledsoe MD 02/20/2024 11:17:07 AM This report has been signed electronically. Number of Addenda: 0 Note Initiated On: 02/20/2024 9:22 AM [facility] 02/20/2024 9:22 AM CDT Hong Bledsoe MD GI PROCEDURE ORDERAB LES [facility] [place] [address] * (ABNORMAL) BASIC METABOLIC PANEL (CALCIUM TOTAL) (08/21/2008 2:20 AM CDT) BUN 14 7.0 - 17.0 mg/dl [facility] Sodium 134(L) 137 - 145 mEq/L [facility] Potassium 3.6 3.6 - 5.0 mEq/L [facility] Chloride 100 98.0 - 107.0 mEq/L [facility] CO2 26 22.0 - 30.0 mEq/L [facility] Anion Gap 7.8 [facility] Glucose 101 75 - 110 mg/dl [facility] Creatinine 0.8 0.7 - 1.2 mg/dl [facility] Calcium 8.6 8.4 - 10.2 mg/dl [facility] eGFR by MDRD 79.2 ml/min/1.7 3m2 [facility] BLOOD SPECIMEN / Unknown 08/21/2008 2:20 AM CDT Norm Ramon MD LAB - CHEMISTRY ORD ERABLES [facility] [address] [place] [address] * (ABNORMAL) LIPID PROFILE (07/29/2008 5:34 PM CDT) Cholesterol 229(H) 120.0 - 200.0 mg/dl [facility] Triglycerides 184 0.0 - 250.0 mg/dl [facility] HDL Cholesterol 45 >40 mg/dl [facility] LDL Calculated 147.2 mg/dl [facility] Chol HDL Ratio 5.1 [facility] Comment Lipid [facility] Comment: Risk Classification HDL CHOL LDL CHOL TOTAL CHOL According to NCEP (mg/dl) (mg/dL) (mg/dl) Desirable >40 <130 < 200 Borderline/High - 130-159 200-239 High - >159 > 239 The total cholesterol to HDL cholesterol ratio may be used to predict risk for coronary heart disease in untreated patients according to data reported from the Calcium Study by Ayad Coulter M.D. The predictive [...] / Unknown 07/29/2008 5:34 PM CDT Narrative [facility] - 07/29/2008 6:07 PM CDT FAX [phone] Norm Ramon MD LAB - CHEMISTRY ORD ERABLES [facility] [address] [place] [address] from Last 3 Months or Most Recently Relevant to Health Maintenance Care Teams Addictions Therapist Relationship Specialty Start Date End Date Irvin Ponce PA [address] [place] [phone] PCP - General Physician Adjunct Faculty For Medical Terminology 12/11/23 [place] [address] [facility] [address] [place] [address] Cardiovascular Disease 04/30/12
== END 2024-07-11 09:12 | disposition home or self-care (01) ==
LOC: ANHGOSHLAB 09:15
PROVIDERS: PCP Physician Assistant; Visit Provider Internal Medicine Pulmonary Disease
DX: E61.1 Iron deficiency (principal); E53.8 Deficiency of other specified B group vitamins
CPT/HCPCS: 36415; 82607; 82728

== ENCOUNTER 2024-07-24 15:24 | Outpatient (CLI) | payer MEDICARE, SELFPAY ==
--- NOTE | ~2024-07-24 | XR_ITS ---
XR hand LT min 3V Ordering provider: Demetrius Brito, History: . Pain in left hand . Comparison: None. FINDINGS: BONES: No acute fracture or dislocation. JOINT SPACES: Well maintained. Erosive changes are seen in the distal interphalangeal joints with ost eophyte formation in multiple joints. Cystic changes seen in the distal middle metacarpal bone. Cysti c changes seen in the distal radius with narrowing of the radiocarpal joint. SOFT TISSUES: Unremarkable. IMPRESSION: No acute osseous abnormality left hand. Highly suggestive of osteoarthritic changes. Clinical correlation advised. Reviewed, dictated and finalized at location A. LAB
== END 2024-07-24 15:25 | disposition home or self-care (01) ==
LOC: MICIMG 15:30
PROVIDERS: Visit Provider Family Medicine
DX: M79.642 Pain in left hand (principal)
CPT/HCPCS: 73130

== ENCOUNTER 2024-09-08 09:46 | Outpatient (CLI) | payer MEDICARE, SELFPAY ==
--- NOTE | ~2024-09-08 | DEXA_ITS ---
Bone Density Report Name: VIOLET DUMONT Age: 69 Sex: Female Ethnicity: White Date of : 1955 Indication: postmenopausal; screening for osteoporosis; height loss; hysterectomy; Referring Provider: SKYLER ANDERSEN Study: Bone densitometry was performed. Exam Date: September 08, 2024 Accession number: [id number] Bone Density: Region BMD T-score Z-score Classification AP Spine(L1-L4) 1.046 0.0 2.2 Normal Femoral Neck (Left) 0.743 -1.0 0.9 Normal Total Hip (Left) 0.870 -0.6 1.0 Normal Femoral Neck (Right) 0.717 -1.2 0.7 Osteopenia Total Hip (Right) 0.903 -0.3 1.3 Normal Femoral Neck Mean 0.730 -1.1 0.8 Osteopenia Total Hip Mean 0.887 -0.5 1.1 Normal World Health Organization criteria for BMD impression classify patients as: Normal (T-score at or above -1.0), Osteopenia (T-score between -1.0 and -2.5), or Osteoporosis (T-score at or below -2.5). 10-year Fracture Risk(1): Major Osteoporotic Fracture 8.5% Hip Fracture 1.0% Reported Risk Factors: [place] (), Neck BMD=0.717, BMI=40.2 (1) FRAX(R) Version 3.08. Fracture probability calculated for an untreated patient. Fracture probability may be lower if the patient has received treatment. Clinical Information Provided by Patient: Has used the following medications: HRT (i.e. estrogen/hormone therapy), Vitamin D, B12, MULTI, DICLOFENAC SODEC 75MG Has the following medical conditions: Hysterectomy, HYPOTHYROIDISM Patient maximum height was 64 Menopause Age: 43 No regular weight bearing exercise Drinks caffeinated beverages Onset of menses at age 11 Number of children 3 Impression: The patient has low bone mass, based on the Right Femoral Neck T-score. Discussion: BONE DENSITY IS LOW AT ONE OR MORE SKELETAL SITES. This patient's lowest T-score is low at one or more skeletal sites. It meets the World Health Organization's (WHO) criteria for ?low bone mass? (T-score between -1.0 and -2.5). The patient's 10-year risk of fracture as calculated by FRAX is less than the threshold where pharmacological therapy is recommended by the National Osteoporosis Foundation (NOF). However, all treatment decisions require clinical judgment and consideration of individual patient factors, including patient preferences, comorbidities, previous drug use, risk factors not captured in the FRAX model (e.g., frailty, falls, vitamin D deficiency, increased bone turnover, interval significant decline in bone density) and possible under or overestimation of fracture risk by FRAX. The patient should follow a healthful lifestyle (good nutrition with adequate calcium and vitamin D, and appropriate weight-bearing exercise). Follow-Up: Consider repeating this study in 2 to 3 years to reassess this patient's status, or sooner if there is some new clinical indication. Reported by: SELVIN on 09/08/2024 10:59:00 AM. Reviewed, dictated and finalized at location A.
--- OUTSIDE RECORDS SUMMARY | 2024-09-08 10:54 | XMS_ITS | Encounter Summary ---
Author Organization [facility] Address [address] [place] [address] Care Team Providers Care Proposal Consultant Name Role Phone Kevin Manzanares MD Unavailable Emely Santoyo MD Primary Care Provider [phone] Irvin Ponce Primary Care Provider + Reason for Visit * Reason Onset Date Comments Medication Issue 05/30/2023 Encounter Details Date Type Department Care Team (Late st Contact Info) Description 05/30/2023 Telephone [facility] - COORDINATE MEASURING EQUIPMENT OPERATOR [address] [facility] [address] [place] [address] Se Chua MD [address] [place] [address] Medication Issue Social History Tobacco Use Types Packs/Day Years Used Date Smoking Tobacco: Never Smokeless Tobacco: Never Alcohol Use Standard Drinks/Week Comments No 0 (1 standard drink = 0.6 oz pur e alcohol) PHQ-2 Answer Date Recorded Patient Health Questionnaire-2 Score 0 05/06/2023 Comments Unknown Sex and Gender Information Value Date Recorded Sex Assigned at Not on file Legal Sex Female 6:54 AM TREASURY DIRECTOR Gender Identity Not on file Sexual Orientation Not on file documented as of this encounter Miscellaneous Notes * Telephone Encounter - Lucero Jesus LPN - 05/30/2023 1:28 PM TREASURY DIRECTOR I called the patient - she has tried other medications a long time ago. But can not remember what. The notes say she has tried myrbetriq in the past. Per patient - [facility] suggested oxybutynin , vesicare or myrbetriq. I will check with - see what he is wanting to change to and let her know. Patient is agreeable. SURY DIRECTOR * Telephone Encounter - Kody Sanders - [...] said the Gemtesa is working perfectly. CB: [phone] Thanks. SURY DIRECTOR documented in this encounter Plan of Treatment Upcoming Encounters Date Type Department Care Team (Latest Contact Info) Description 09/18/2024 9:00 AM CDT Hospital Encounter [facility] [address] [place] [id number] [place] [address] [place] [address] Surgery General 09/18/2024 9:00 AM CDT Procedure visit [facility] - [place] [address] [place] [address] 09/18/2024 9:00 AM CDT - 09/18/2024 9:30 AM CDT Surgery [facility] [address] [place] [address] [phone] [place] [address] [address] [place] [address] ESOPHAGOGASTRODUODENOSCOPY (EGD) DIAGNOSTIC 02/24/2025 10:00 AM CDT Office Visit [facility] [place] [address] [address], [address] [place] [address] [place] [address] [facility] [address] [place] [address] Scheduled Procedures Name Priority Associated Diagnoses Date/Ti ok ESOPHAGOGASTRODUODENOSCOPY ( EGD) DIAGNOSTIC 09/18/2024 9:00 AM CDT documented as of this encounter Visit Diagnoses Not on filedocumented in this encounter Care Teams Proposal Consultant Relationship Specialty Start Date End Date Emely Santoyo MD [address] [facility] [address] [place] [phone] PCP - General Family Medicine 01/09/17 12/10/23 Irvin Ponce PA [address] [place] [phone] PCP - General Physician Med Surg Nurse 12/11/23 [place] [address] [facility] [address] [place] [address] Cardiovascular Disease 04/30/12 documented as of this encounter
--- OUTSIDE RECORDS SUMMARY | 2024-09-08 10:54 | XMS_ITS | Referral Summary ---
Author Organization [facility] Address [address] [place] [address] Care Team Providers Care Critical Care Unit Nurse Name Role Phone Emely Santoyo MD Primary Care Provider [phone] Encounters Date Type Department Care Team Description 07/30/2024 2:00 PM CDT Office Visit [facility] Movement Disorders [facility] [facility] [address] [place] [address] Vaibhav Cruz MD PhD Tardive dyskinesia (Primary Dx); Parkinsonism due to drugs from Last 3 Months Allergies Active Allergy Reactions Criticality Noted Date Comments Sulfa (Sulfonamide Antibiotics) Medications levothyroxine (SYNTHROID) 137 mcg tablet Take 1 tablet (137 mcg total) by mouth 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 Active venlafaxine (EFFEXOR) 75 mg tablet Take 1 tablet (75 mg total) by mouth daily Active venlafaxine XR (EFFEXOR-XR) 150 mg 24 hr capsule Take 1 capsule (150 mg total) by mouth daily Active amLODIPine (NORVASC) 5 [...] Units total) by mouth once a week Active benazepril-hydr oCHLOROthiazide (LOTENSIN HCT) 5-6.25 mg per tabletIndicatio ns:hypertension Take 1 tablet by mouth daily Active buPROPion XL (WELLBUTRIN XL) 150 mg 24 hr tablet Take 1 tablet (150 mg total) by mouth daily Active Active Problems Problem Noted Date Diagnosed Date Tardive dyskinesia 11/04/2020 Assessment & Plan (07/30/2024 3:27 PM CDT): She has involuntary movements by history and observed again on exam today including dyskinesia of mouth, hands, and trunk. This is most likely consistent with tardive dyskinesia given the pattern and temporal relationship to exposure to aripiprazole and/or brexpiprazole. It is possible that these symptoms may continue to improve with additional time especially since her movements overall have improved with time, and I would strongly recommend that she avoid dopamine blocking medications in the future as these could worsen symptoms. She continues to think movements are improved and not bothersome therefore we continue to agree she does not require medication for dyskinesias. She does think that in the evening she has movements that cause issues in her mouth and cause sores periodically and therefore we agreed that recommendations from her dentist would be important to see if a mouth guard could help with this. I counseled again that there are medications that are sometimes used to treat tardive dyskinesia but they can have side effects including worsening of depression, so we again agreed this is not the best option at this point given that her movement symptoms are relatively mild and seem have improved without therapy. Her mild parkinsonism remains mild and unchanged. 1. Avoid dopamine blocking medications, including haloperidol (Haldol), risperidone (Risperdal), olanzapine (Zyprexa), aripiprazole (Abilify), lurasidone (Latuda), metoclopromide (Reglan), and prochlorperazine (Compazine), brexpiprazole (Rexulti). 2. Anticipate continued gradual improvement/unlikely worsening of involuntary mouth movements. She knows to call me with any change in symptoms. 3. Discussed speaking with dentist about mouth guard that may help nighttime cheek biting causing periodic sores. Assessment & Plan (01/10/2023 7:47 PM CDT): [...] change in symptoms. 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 Gender Identity Not on file Sexual Orientation Not on file Last Filed Vital Signs Vital Sign Reading Time Taken Comments Blood Pressure 130/71 07/30/2024 1:46 PM CDT Pulse 75 07/30/2024 1:46 PM CDT Temperature 36.3 C (97.3 F) 07/30/2024 1:46 PM CDT Respiratory Rate - - Oxygen Saturation 97% 09/11/2012 8:53 AM CDT Inhaled Oxygen Concentration - - Weight 102.8 kg (226 lb 9.6 oz) 07/30/2024 1:46 PM CDT Height 162.6 cm (5' 4 ) 07/30/2024 1:46 PM CDT Body Mass Index 38.9 07/30/2024 1:46 PM CDT Plan of Treatment Not on file Insurance [facility] Address: [facility] [address] [place] [address] [facility] ADVANTAGE [facility] Address: [facility] [id number] [place] [phone] Care Teams Critical Care Unit Nurse Relationship Specialty Start Date End Date Emely Santoyo MD NPI: [id number] [place] [address] [place] [address] PCP - General Family Medicine 05/04/20
--- OUTSIDE RECORDS SUMMARY | 2024-09-08 10:54 | XMS_ITS | Clinical Summary ---
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 Cervicalgia 07/19/2015 Fatty tumor 08/21/2012 Encounters Date Type Department Care Team Description 07/30/2024 2:00 PM CDT Office Visit [facility] Movement Disorders [address] 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 Gender Identity Not on file Sexual Orientation [...] 07/30/2024 1:46 PM CDT Plan of Treatment Health Maintenance Due Date Last Done Comments Colon Cancer Screening-Colonoscopy 1955 Depression Screening 1955 Fall Risk Assessment 1955 Hepatitis C Screening 1955 Hepatitis B Screening 1971 Well Visit 65+ 2018 Breast Cancer Screening-Mammogram 02/13/2023 022, 02/12/2022 Osteoporosis Screening-Bone Density Scan 02/11/2024 02/10/2022 Influenza Vaccine (Season Ended) 2025 03/21/2019, 03/08/2019, 02/18/2018 DTaP/Tdap/Td Vaccine (2 - Td or Tdap) 12/07/2029 Pneumococcal vaccine 65+ Completed 019, 02/18/2019, 02/18/2018 Zoster Vaccine Completed 04/17/2020, 01/16/2020 Insurance [facility] MEDICARE ADVANTAGE [employer] MEDICARE ADVANTAGE Care Teams Steel Tester Relationship Specialty Start Date End Date Emely Santoyo MD [facility] [place] [address] PCP - General Family Medicine 05/04/20
--- OUTSIDE RECORDS SUMMARY | 2024-09-08 10:54 | XMS_ITS | Data Portability ---
Author Organization [place] [facility], Main Office Address [address] [place] [address] Assessment Encounter Date Assessment Date Assessment LastModified by Organization Details LastModified Time 01/30/2024 01/30/2024 Assessment: Very severe OSAHS, AHI = 91 PLMD Iron deficiency B12 deficiency Hypoventilation Plan: The following were reviewed and explained to the patient: [place] split night sleep study 02/21/06 sleep onset = immediate, REM onset = none, AHI = 91, ResMed small full face mask @ 12 cmH2O, PLMI = 172 [facility] split night sleep study 01/28/24 sleep onset [...] carrier. Patient will setup an appointment with [facility] for supplies and pressure adjustments. A major [...] further management. Follow-up: 3 months, April 2024 Not available 01/30/2024 09:10:39 05/07/2024 05/07/2024 Assessment: Rhinitis Very severe OSAHS, AHI = 91 PLMD Iron deficiency B12 deficiency Plan: The following were reviewed and explained to the patient: [place] split night sleep study 02/21/06 sleep onset = immediate, REM onset = none, AHI = 91, ResMed small full face mask @ 12 cmH2O, PLMI = 172 [facility] split night sleep study 01/28/24 sleep onset [...] carrier. Patient will setup an appointment with [facility] for supplies and pressure adjustments. A major [...] months, July 2024 Not available 05/07/2024 12:11:45 07/17/2024 07/17/2024 Assessment: Rhinitis Very severe OSAHS, AHI = 91 PLMD Iron deficiency B12 deficiency Plan: The following were reviewed and explained to the patient: [place] split night sleep study 02/21/06 sleep onset = immediate, REM onset = none, AHI = 91, ResMed small full face mask @ 12 cmH2O, PLMI = 172 [facility] split night sleep study 01/28/24 sleep onset = 15.5 minutes, REM onset = 312 minutes, AHI = 61, supine AHI = 65, Respironics large Dream Wisp nasal mask @ 5-20 cmH2O, PLMI= 7 Ferritin 11/29/23 2 ng/mL Ferritin 05/05/24 17 ng/mL Ferritin 07/11/24 18 ng/mL B12 11/29/23 367 pg/mL B12 05/05/24 473 pg/mL B12 07/11/24 842 pg/mL Elevation in periodic limb movement index [...] 325 mg + Vit C 500 mg twice daily to keep the ferritin > 75 ng/ml. Patient will continue B12 1 mg but decrease from daily to twice weekly to keep the levels > 400 pg/ml. Check ferritin and B12 one week before return. We will hold off on dopaminergic therapy for now. PAP compliance downloaded and interpreted x 20 minutes. Data reviewed and explained to the patient. Average apnea/hypopnea index (AHI) is 5.5. Patient used PAP > 4 hours 91% of the time. PAP is set at 6-12 cmH2O. PAP will be reset at 7-11 cmH2O. Oxygen supplementation: none Keep ramp start [...] carrier. Patient will setup an appointment with [facility] for supplies and pressure adjustments. A major [...] PCP for further management. Follow-up: 3 months, September 2024 [facility] Not available 07/17/2024 10:24:11 07/24/2024 07/24/2024 Advised pt to f/ u with her Ortho in [facility] in 2-3 weeks. [email or web address] Not available 07/24/2024 11:36:49 08/13/2024 08/13/2024 Advised pt to f/ u with her Ortho in [facility] on 08/19/24. [email or web address] Not available 08/13/2024 14:50:37 Plan of Treatment Reminders Order Date Submit Date Provider Last Modified By Organization Details Last Modified Time Details Appointments Any 2024 09:00A Jenny Hernandez MD Not available Not available Not available Lab ferritin, serum or plasma [address] (Lab), [address] [place], [address], 07/17/2024 10:28:51 vitamin B12, serum [address] (Lab), [address] [place], [address], 07/17/2024 10:28:51 ferritin, serum or plasma 2023 025 [facility] (Lab), [address] [place], [address], 07/16/2024 17:31:00 vitamin B12, serum 2023 [email or web address] [address] [place], [address], 07/23/2024 10:24:31 ferritin, serum or plasma 2023 [email or web address] [place] [address] (Lab), [address] [place], [address], 05/08/2024 14:50:42 vitamin B12, serum 2023 [email or web address] [place] [address] (Lab), [address] [place], [address], 05/08/2024 14:50:43 Referral None recorded. Procedures None recorded. Surgeries None recorded. Imaging XR, hand, 3 or more view 2024 025 [email or web address] [facility], [address], [address], [place], [address], 07/28/2024 09:46:24 Medication Orders diclofena c sodium 75 mg tablet,de layed release 2024 025 [facility]armacy #[id number], [address] [place], [address], 08/13/2024 14:46:02 prednison e 10 mg tablet 2024 025 [facility]Ph[facility] #[id number], [address] [place], [address], 07/24/2024 11:30:09 ketorolac 60 mg/2 mL intramusc ular solution 2024 025 [email or web address] Not available 07/24/2024 12:23:59 ferrous sulfate 325 mg (65 mg iron) tablet 2024 025 [place] [facility], [address] [place] [address], [address], [place], [address], 07/17/2024 10:28:54 Vitamin C 500 mg tablet 2024 025 [place] [facility], [address], [address], [place], [address], 07/17/2024 10:28:55 Vitamin B-12 1,000 mcg tablet 2024 025 [place] [facility], [address], [address], [place], [address], 07/17/2024 10:28:56 ferrous sulfate 325 mg (65 mg iron) tablet 2023 024 [place] [facility], [address], [address], [place], [address], 05/07/2024 12:12:48 Vitamin C 500 mg tablet 2023 024 [place] [facility], [address], [address], [place], [address], 05/07/2024 12:12:48 Vitamin B-12 1,000 mcg tablet 2023 024 [place] [facility], [address], [address], [place], [address], 05/07/2024 12:13:36 ferrous sulfate 325 mg (65 mg iron) tablet 2023 024 [place] [facility], [address], [address], [place], [address], 01/30/2024 09:16:06 Vitamin C 500 mg tablet 2023 024 [place] [facility], [address], [address], [place], [address], 01/30/2024 09:16:06 Vitamin B-12 1,000 mcg tablet 2023 024 [place] [facility], [address], [address], [place], [address], 01/30/2024 09:16:07 Patient TargetsNo targets recorded. Patient InstructionsNo instructions recorded. Reason for Referral None Reported. Results Created Date Observation Date Name Description Value Unit Range Abnormal Flag Note LastModifiedBy Organization Detail LastModifiedTime 05/05/20 24 05/06/2024 DOREEN TIN ferritin 17 NG/mL 16-288 normal Not Available [facility] [address] [place], [address], 05/06/2024 05:06:54 05/05/20 24 05/06/2024 VITAM IN B12 vitamin B12 473 pg/mL 200-11 00 normal Not Available [facility] [address] [place], [address], 05/06/2024 05:06:56 12/31/19 elect rocar diogr am No observ ation record ed. [email or web address] [facility] [address], [place], [address], 12/31/2023 09:01:23 01/30/20 24 01/28/2024 polys omnog carole, split night No observ ation record ed. [facility] [address] [place], [address], 01/30/2024 10:29:05 02/12/20 24 02/11/2024 MAMMO , scree maude, digit al, bilat eral No observ ation record ed. [email or web address] [facility] [address] [facility], [place], [address], 02/25/2024 12:58:02 07/25/19 25 07/24/2024 XR, hand, 3 or more view No observ ation record ed. [email or web address] [facility] [address], [place], [address], 08/13/2024 14:42:07 Result Notes None recorded. Problems Name Problem SNOMED Code Status Onset Date Resolution Date Notes Provider Name and Address Organization Details Recorded Time Benign paroxysma l positiona l vertigo 221056623 Active 2022 Not Available [facility] 15:51:54 Cobalamin deficienc y 533610242 Active Not Available [facility] 15:51:54 Anemia 470173233 Active Not Available [facility] 10/11/202 3 15:51:54 Arthritis 8910285 Active Not Available [facility] 3 15:51:54 Hypertens andre disorder 08241930 Active Not Available [facility] 3 15:51:54 Tension-t ype headache 815306918 Active Not Available [facility] 3 15:51:54 Multiple skin tags 125530967 Active Not Available [facility] 3 15:51:54 Attention deficit hyperacti vity disorder 783102338 Active Not Available [facility] 3 15:51:54 Hypothyro idism 40229312 Active Not Available [facility] 3 15:51:54 Hiatal hernia 00950391 Active Not Available [facility] 3 15:51:54 Obesity 106993267 Active 2022 Not Available [facility] 3 15:51:54 Mixed urinary incontine nce 231903630 Active 2022 Not Available [facility] 3 15:51:54 Mixed anxiety and depressiv e disorder 533271594 Active 2022 Not Available [facility] 3 15:51:54 High hemoglobi n A1c level 275089490 Active 2023 RONEN Sebastian [address], [address], [place], [address] , [facility] 4 11:15:36 Hyperlipi demia 74229101 Active 2023 RONEN Sebastian [address], [address], [place], [address] , [facility] 4 11:18:47 Tardive dyskinesi a 483357965 Active 2023 sees a specialis t in [facility] RONEN Sebastian [address], [address], [place], [address] , [facility] 4 10:45:38 Irritable bowel syndrome character ized by constipat ion 910259787 Active 2023 Hortencia Pete RN null, [facility] 4 12:16:51 Bilateral carpal tunnel syndrome 10311789189 083838 Active 2023 see nerve conductio n : 11/02/2023 RONEN Sebastian [address], [address], [place], [address] , [facility] 4 10:34:58 Obstructi ve sleep apnea syndrome 79068278 Active 2023 Jerod Hernandez MD [address], [address], [place], [address] , [facility] 4 15:58:15 Periodic limb movement disorder 750086171 Active 2023 Jerod Hernandez MD [address], [address], [place], [address] , [facility] 4 16:08:41 Iron deficienc y 75136618 Active 2023 Jerod Hernandez MD [address], [address], [place], [address] , [facility] 4 13:59:55 Screening for malignant neoplasm of colon Active 2023 RONEN Sebastian [address], [address], [place], [address] , [facility] 4 22:06:13 Pain of left hand 23329275043 9103 Active 2024 Demetrius Brito MD [address], [address], [place], [address] , [facility] 5 11:25:48 Strain of thumb tendon 385652249 Active 2024 Demetrius Brito MD [address], [address], [place], [address] , [facility] 5 11:27:41 History of decompres oseas of median nerve 788722516 Active 2024 Demetrius Brito MD [address] [employer], [address], [place], [address] , [employer] 5 11:35:43 Dysuria 82740547 Active 2024 RONEN Sebastian [address], [facility] [address], [place], [address] , [employer] 5 13:57:50 Celluliti s 007783917 Active 2024 RONEN Sebastian [address], [facility] [address], [place], [address] , [employer] 13:59:18 Notes:Medical History: Acroc hordon Tardive dyskinesia Depression/Anxiety/ADHD [...] Left CTS release 2023 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 Procedures Surgical History Date Name Laterality Status Provider Name and Address Organization Details Recorded Time 01/09/20 Medicare Wellness CPT Code, subsequent completed Adrianna Lopez RN [facility] [employer] 01/09/2024 12:11:38 11/19/19 EGD completed Adrianna Lopez RN [facility] [employer] 01/09/2024 12:18:10 section completed Not Available [facility] 07/19/2022 07:26:38 Cholecystectomy completed Not Available [facility] 07/19/2022 07:26:38 Knee Replacement completed Not Available [facility] 07/19/2022 07:26:38 Hysterectomy completed Not Available [facility] 07/19/2022 07:26:38 Gastric Bypass completed Not Available [facility] 07/19/2022 07:26:38 Imaging Results Imaging Date Name Status LastModified by Organization Details LastModified Time 12/31/2023 electrocardiogram completed [email or web address] [facility] [address], [place], [address], 12/31/2023 09:01:23 01/28/2024 polysomnogram, split night completed [facility] [address] [place], [address], 01/30/2024 10:29:05 02/11/2024 MAMMO, screening, digital, bilateral completed [email or web address] [facility] [address] [place], [address], 02/25/2024 12:58:02 07/24/2024 XR, hand, 3 or more view completed [email or web address] [facility] [address], [place], [address], 08/13/2024 14:42:07 Procedure Notes None recorded. Medical Equipment None Reported. Allergies Allergen ID Allergen Name Allergen Category Reaction Reaction Severity Criticality Documentation Date Start Date Code Code System Note Provider Name and Address Organization Details Recorded Time 26244 Substance with sulfonami de structure and antibacte rial mechanism of action (substanc e) medicatio n Not available Not available Not available 07/19/2022 87474 8003 SNOMED Not Available [facility] 3 07:34:44 Medications Name Sig Start [...] Not Available Not Available Not Available prednisone 10 mg tablet TAKE 1 TABLET BY MOUTH EVERY DAY DIRECTED FOR 7 DAYS active Not Available Not Available No t Available venlafaxine ER 75 mg capsule,ext ended [...] tablet twice a day by oral route. 2024 active Not Available Not Available Not Avai [...] MAY REPEAT IN 10 DAYS IF NEEDED 07/17 completed Not Available Not Available Not Available [...] Available Not Available amlodipine 5 mg tablet TAKE 1 TABLET BY MOUTH EVERY DAY active Not Available Not Available No t Available benazepril 20 mg-hydrochl orothiazide 12.5 mg tablet TAKE 1 TABLET BY MOUTH DAILY 2024 active Not Available Not Available Not Avai lable ciprofloxac in 500 mg tablet TAKE 1 TABLET BY MOUTH EVERY 12 HOURS FOR 10 DAYS active Not Available Not Available No t Available tramadol 50 mg tablet TAKE 1 [...] tablet twice a day by oral route. 2024 active Not Available Not Available Not Avai [...] completed Not Available Not Available Not Available diclofenac sodium 75 mg tablet,kamryn yed release TAKE 1 TABLET BY MOUTH EVERY 12 HOURS NEEDED FOR 30 DAYS active Not Available Not Available No t Available benazepril 20 mg tablet 1 po [...] Not Available Not Available Not Available ketorolac 60 mg/2 mL intramuscul ar solution Inject 60 mg as needed by intramusc ular route for 1 day. 2024 active pt asif well Not Available Not Available Not Available propranolol [...] B-12 1,000 mcg tablet Take 1 tablet twice a week by oral route. 2024 active Not Available Not Available Not Avai [...] extended release TAKE 1 TABLET BY MOUTH EVERY DAY [...] gluconate 0.12 % mouthwash SWISH 15 ML BY MOUTH FOR 1 MIN THEN SPIT AFTER BRUSHING AND BEFORE BED [...] Available Vitals Date Recorded Body height Body mass index (BMI) Body weight Body temperature Heart rate Oxygen saturation Oxygen saturation in Arterial blood by Pulse oximetry Systolic blood pressure Diastolic blood pressure Provider Name and Address Organization Details Last Updated DateTime 4 162.56 cm 37.8 kg/m2 68020.3 2 g 98.1 [degF] 66 /min 98 % 98 % 118 mm[Hg] 70 mm[Hg] Sarah Beckham CMA [place] [employer] [facility] 4 08:54:11 Date Recorded Heart rate Respiratory rate Provider N danielle and Address Organization Details Last Updated DateTime 01/30/2024 66 /min 15 /min Jerod Hernandez MD [address] [facility], [facility] [address], [place], [address], [place] [employer] [facility] [employer] 01/30/2024 09:14:27 Date Recorded Body height Body mass index (BMI) Body weight Body temperature Heart rate Oxygen saturation Oxygen saturation in Arterial blood by Pulse oximetry Systolic blood pressure Diastolic blood pressure Provider Name and Address Organization Details Last Updated DateTime 4 162.56 cm 37.8 kg/m2 84988.3 2 g 98 [degF] 66 /min 98 % 98 % 122 mm[Hg] 66 mm[Hg] Wanda Qureshi MA [facility] [employer] 4 11:51:28 Date Recorded Heart rate Respiratory rate Provider N danielle and Address Organization Details Last Updated DateTime 05/07/2024 66 /min 15 /min Jerod Hernandez MD [address] [facility] [place], [address], [facility] [employer] 05/07/2024 12:26:07 Date Recorded Body height Body mass index (BMI) Body weight Heart rate Oxygen saturation Oxygen saturation in Arterial blood by Pulse oximetry Body temperature Systolic blood pressure Diastolic blood pressure Provider Name and Address Organization Details Last Updated DateTime 5 162.56 cm 39.5 kg/m2 973394. 25 g 65 /min 98 % 98 % 98 [degF] 118 mm[Hg] 68 mm[Hg] Wanda Qureshi MA [facility] [employer] 5 10:08:59 Date Recorded Heart rate Respiratory rate Provider N danielle and Address Organization Details Last Updated DateTime 07/17/2024 65 /min 14 /min Jerod Hernandez MD [address] [facility] [place], [address], [facility] [employer] 07/17/2024 10:32:51 Date Recorded Body height Body mass index (BMI) Body weight Body temperature Oxygen saturation Oxygen saturation in Arterial blood by Pulse oximetry Heart rate Systolic blood pressure Diastolic blood pressure Provider Name and Address Organization Details Last Updated DateTime 5 162.56 cm 38.7 kg/m2 411358. 08 g 97.9 [degF] 97 % 97 % 71 /min 140 mm[Hg] 70 mm[Hg] Gricel Quesada RN [facility] [employer] 5 11:20:47 Date Recorded Body height Body mass index (BMI) Body weight Body temperature Oxygen saturation Oxygen saturation in Arterial blood by Pulse oximetry Heart rate Systolic blood pressure Diastolic blood pressure Provider Name and Address Organization Details Last Updated DateTime 5 162.56 cm 38.7 kg/m2 294546. 43 g 97.4 [degF] 96 % 96 % 72 /min 120 mm[Hg] 64 mm[Hg] Gricel Quesada RN [employer] 14:38:27 Social History Question Answer Notes LastModified by Organizat ion Details LastModified Time Tobacco Smoking Status Never Smoker [place] Nannette paiz [employer] 07/03/2023 10:27:25 What Is Your Level Of Alcohol Consumption? None [id number] Information not available 07/19/2022 In The 14 [...] Date Of Your Most Recent Tobacco Screening? 07/17/2024 Information not available 07/17/2024 Do You Have Any Pets? No Information [...] Not available 2023 15:56:49 Mother Hypothyroidi sm Not available 2023 15:57:10 Sister Obstructive sleep [...] HAVE YOU BEEN HOSPITALIZED OR SEEN IN [facility] ER IN THE PAST YEAR ? N STROKE/TIA N ULCERS N OBESITY N HISTORY WITH COMPLICATIONS WITH ANESTHES IA ? N ANEURYSM N USE OF BLOOD THINNERS N NO SIGNIFICANT PAST MEDICAL HISTORY N DIABETES, TYPE N PARATHYROID DISEASE N ENT Y SEASONAL ALLERGIES N HEARTBURN / REFLUX N HEPATITIS / LIVER DISEASE N SLEEP DISORDER N HEADACHES/MIGRAINES N SEIZURES/EPILEPSY N CHF N PACEMAKER N DIZZINESS Y HEART DISEASE/HEART PROBLEMS N AIDS/HIV N FRACTURES N HYPERTENSION Y CANCER: SPECIFY N TOURETTE'S N BLOOD TRANSFUSION N ANESTHESIA COMPLICATIONS N ANEMIA/BLOOD DISORDER N CHRONIC EAR INFECTIONS N AUTOIMMUNE DISEASE N TUBERCULOSIS N Gynecological HistoryNo gynecological history recorded. Obstetrics History GPAL:G 0 P 0 0 0 0 Immunizations Vaccine Type Date Status Note Provider Nam e and Address Organization Details Recorded Time Influenza, high-dose, quadrivalent, PF 2 completed Not Available [facility] 02/16/2023 22:31:43 pneumococcal polysaccharide PPV23 9 completed Not Available [facility] 02/16/2023 22:31:43 Influenza, high-dose, trivalent, PF 8 completed Not Available [facility] 02/16/2023 22:31:43 Pneumococcal conjugate PCV 13 8 completed Not Available [facility] 02/16/2023 22:31:43 Past Encounters Encounter ID Performer Location Encounter Start Date Encounter Closed Date Diagnosis/Indication Diagnosis SNOMED-CT Code Diagnosis ICD10 Code Diagnosis Note [id number] [facility] [place] [address] 09/14/2021 00:00:00 09/14/2021 13:55:04 [id number] [facility] [place] [address] 02/06/2022 00:00:00 02/06/2022 18:41:56 [id number] [facility] [place] [address] 03/20/2022 00:00:00 03/21/2022 06:02:28 [id number] [facility] [employer] [place] [address] 04/18/2022 00:00:00 04/18/2022 12:50:52 [id number] [facility] Britney Orozco [address] [place] [address] 06/08/2022 00:00:00 06/08/2022 11:42:40 [id number] Emely Santoyo MD [facility] Camilla beltran [address] [place] [address] [place] [address] 09/11/2022 15:41:32 09/11/2022 16:42:46 Upper respiratory infection 21247016 J06.9 SxRx Simply saline nasal spray and hot packs to face. If sx worsen she is to go get a COVID test and call me with results. [id number] Emely Santoyo MD [facility] Camilla beltran [facility] [place] [address] 09/27/2022 12:26:15 09/27/2022 12:56:48 Acute sinusitis 60093396 J01.90 Candidiasis of mouth 797 01968 B37.0 Obesity 649636718 E66.9 [id number] Emely Santoyo MD [facility] Camilla beltran [facility] [place] [address] 10/03/2022 15:54:01 10/05/2022 16:01:11 Acute urinary tract infection 816964370 N39.0 [id number] Emely Santoyo MD [facility] Camilla beltran [address] [place] [address] [place] [address] 11/02/2022 11:24:00 11/02/2022 12:01:09 Glossitis 13820946 K14.0 F/u with ENTTongue scraping done and wet mount done no evidence of yeast Xerostomia 66979438 R68. 2 Drink 64 OZ of water per day. Mixed urin mary jane incontinence 390896236 N39.46 Call for referral to Urologist. [id number] Emely Santoyo MD [facility] Camilla lle [address] [place] [address] [place] [address] 01/08/2023 11:05:31 01/08/2023 12:06:15 Mixed anxiety and depressive disorder 491214776 F41.8 Obesity 018992864 E66.9 Urinary incontinence 165 834763 R32 Pain of bi lateral knee joints 1237917799 01569 M25.784 [id number] RONEN Sebastian [facility] Camilla harte [address] [place] [address] [place] [address] 06/12/2023 10:23:57 06/12/2023 11:21:56 Hypothyroidism 16098077 E03.9 Anxiety 42932118 F41.9 Mixed anxi ety and depressive disorder 403387528 F41.8 Attention deficit hyperactivity disorder 552148356 F90.9 Essential hypertension 00168048 I10 Serum ari min B12 below reference range 161861736 R79.89 Anemia 238815460 D64.9 High hemog lobin A1c level 197848753 R73.09 Hyperlipidemia 99985468 E78.5 Cellulitis [id number] L03 .90 [id number] RONEN Sebastian [facility] [address] [place] [address] 07/03/2023 10:26:52 07/03/2023 11:43:33 Overactive urinary bladder 061051983 N32.81 Nausea 439255873 R11.0 Anemia 432055182 D64.9 Depressive disorder 3548 9007 F32.A Anxiety 38681744 F41.9 Arthritis 0254218 M19.90 Attention deficit hyperactivity disorder 310159962 F90.9 Essential hypertension 88945795 I10 Hypothyroidism 46920391 E03.9 Mixed anxi ety and depressive disorder 791556396 F41.8 Serum ari min B12 below reference range 605125539 R79.89 Sleep apnea 05413799 G47 .30 [id number] RONEN Sebastian [address] [place] [address] 09/26/2023 10:47:26 09/26/2023 11:33:17 Dysphagia 84730323 R13.10 Tardive dyskinesia 14274 9007 G24.01 Bilateral tendonitis of wrists 1293703105 8867717 M67.833 M67.834 Anemia 162592863 D64.9 Anxiety 19658362 F41.9 Arthritis 1000335 M19.90 Attention deficit hyperactivity disorder 104027139 F90.9 Depressive disorder 3548 9007 F32.A Essential hypertension 86995346 I10 High hemog lobin A1c level 247205921 R73.09 Hyperlipidemia 60222147 E78.5 Hypothyroidism 39009322 E03.9 Irritable bowel syndrome characterized by constipation 581073834 K58.1 Sleep apnea 89973149 G47 .30 [id number] Jerod Hernandez MD [address] [address] 11/28/2023 14:49:38 11/30/2023 08:32:10 Obstructive sleep apnea syndrome 33375734 G47.33 G47.36 G47.61 Periodic l imb movement disorder 476185721 G47.61 D50.8 E83.42 [id number] Jerod Hernandez MD [address] [address] 12/19/2023 13:51:03 12/19/2023 16:52:51 Obstructive sleep apnea syndrome 34890272 G47.33 G47.36 G47.61 Iron deficiency 87675419 E61.1 Cobalamin deficiency 190 703764 E53.8 [id number] RONEN Sebastian [facility] Camilla beltran [facility] [place] [address] 12/19/2023 15:04:47 12/31/2023 11:41:26 Pre-surgery testing 526128058 Z01.89 [id number] RONEN Sebastian [facility] Camilla beltran [facility] [place] [address] [address] 01/09/2024 11:56:59 01/09/2024 12:50:45 Adult health examination 797197422 Z00.00 Screening for disorder 855693460 Z13.9 Screening mammography 24 209915 Z12.31 Renewal of prescription 145292896 Z76.0 Anemia 836575160 D64.9 Arthritis 0289437 M19.90 Attention deficit hyperactivity disorder 229590083 F90.9 Bilateral carpal tunnel syndrome 1620584927 4842133 G56.03 Cobalamin deficiency 190 076232 E53.8 High hemog lobin A1c level 342292876 R73.09 Hyperlipidemia 60709187 E78.5 Hypothyroidism 73969046 E03.9 Iron deficiency 00899344 E61.1 Irritable bowel syndrome characterized by constipation 276330765 K58.1 Mixed anxi ety and depressive disorder 016516675 F41.8 Periodic l imb movement disorder 480306666 G47.61 D50.8 E83.42 Serum ari min B12 below reference range 474704788 R79.89 Seborrheic dermatitis of scalp 448573092 L21.0 [id number] Jerod Hernandez MD [address] [address] 01/30/2024 08:33:45 01/30/2024 15:24:58 Obstructive sleep apnea syndrome 41402943 G47.33 Iron deficiency 19116072 E61.1 Cobalamin deficiency 190 167331 E53.8 [id number] Jerod Hernandez MD [address] [address] 05/07/2024 11:29:42 05/07/2024 12:29:47 Obstructive sleep apnea syndrome 81693108 G47.33 Iron deficiency 55766319 E61.1 Cobalamin deficiency 190 367799 E53.8 [id number] Jerod Hernandez MD [address] [address] 07/17/2024 09:52:55 07/17/2024 12:19:26 Obstructive sleep apnea syndrome 56251870 G47.33 Iron deficiency 83583227 E61.1 Cobalamin deficiency 190 305492 E53.8 [id number] Demetrius Brito MD [address] [address] 07/24/2024 11:06:26 07/24/2024 11:41:09 Pain of left hand 4306841444 32829 M79.642 Strain of thumb tendon 476569953 S66.912A History of decompression of median nerve 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 [id number] Demetrius Brito MD [address] [address] 08/13/2024 14:20:22 08/13/2024 15:04:38 Pain of left hand 2203467385 17129 M79.642 Strain of thumb tendon 656988575 S66.912A History of decompression of median nerve 061234248 Z98.890 B/l CTS Tardive dyskinesia 38613 9007 G24.01 Cont f/u with specialist in [facility] as per schedule. Health Concerns Section Related Observation LastModified by Organization Detai ls LastModified Time None Recorded Concern Status LastModified by Organization Details LastModified Time None Recorded Advance Directives Directive None Recorded Payers Encounter Date Sequence Insurance Name Policy Number Policy Hussein Covered Member ID Hussein Member ID Guarantor Name 01/30/2024 1 [facility] (MEDICARE REPLACEMENT/A DVANTAGE - HMO) [id number] Lisa Tapia [id number] Lisa Tapia 05/07/2024 1 [facility] (MEDICARE REPLACEMENT/A DVANTAGE - HMO) [id number] Lisa Tapia [id number] Lisa Tapia 07/17/2024 1 [facility] (MEDICARE REPLACEMENT/A DVANTAGE - HMO) [id number] Lisa Tapia [id number] Lisa Tapia 07/24/2024 1 [facility] (MEDICARE REPLACEMENT/A DVANTAGE - HMO) [id number] Lisa Tapia [id number] Lisa Tapia 08/13/2024 1 [facility] (MEDICARE REPLACEMENT/A DVANTAGE - HMO) [id number] Lisa Lacho Willie [id number] Lisa Tapia Notes Date Note Type Note Provider Name and Address Organization Details Recorded Time 01/30/2024 text/html Primary care/Ref erring provider: RONEN Sebastian During the [place] split night sleep study on 02/21/06, sleep onset = immediate, REM onset = none, AHI = 91, ResMed small full face mask was applied @ 12 cmH2O. During the [facility] split night sleep study on 01/28/24, sleep [...] moderate chance of dozing. Jerod Hernandez MD [address] [place] [address], [address], [facility] 01/30/2024 09:21:09 05/07/2024 text/html Primary care/Ref erring provider: RONEN Sebastian During the [facility] split night sleep study on 02/21/06, sleep onset = immediate, REM onset = none, AHI = 91, ResMed small full face mask was applied @ 12 cmH2O. During the [facility] split night sleep study on 01/28/24, sleep [...] slight chance of dozing. Jerod Hernandez MD [address] [place] [address], [phone], [facility] 05/07/2024 12:26:17 07/17/2024 text/html Primary care/Ref erring provider: RONEN Sebastian CC: I keep forgetting to take the second dose of my FeSo4 + Vit C. During the [place] split night sleep study on 02/21/06, sleep onset = immediate, REM onset = none, AHI = 91, ResMed small full face mask was applied @ 12 cmH2O. During the [facility] split night sleep study on 01/28/24, sleep onset = 15.5 minutes, REM onset = 312 minutes, AHI = 61, supine AHI = 65, PLMI= 7. PLMI = 7 and she is on iron and B12 supplements. At home since 05/07/24, the patient uses a ResMed AirSense 11 [...] DOZINGSitting and reading - 1Watching television - 2Sitting inactive in a public place (e.g. a theater or meeting) - 2As a passenger in a car for an hour without a break - 3Lying down to rest in the afternoon when circumstances permit - 3Sitting and talking to someone - 1Sitting quietly after lunch without alcohol - 1In a car, while stopped for a few minutes in the traffic - 0TOTAL SCORE 13Subjectively, patient has a moderate chance of dozing. Jerod Hernandez MD [address], [place], [address], [employer] 07/17/2024 10:33:11 07/24/2024 text/html ACV: C/o Lt thumb area pain for last few months, on/pff. But for last 1 month, its bothering her more. Pt had b/l CTS surgery done in the past. She called her Ortho for this, but he is on vacation. Pt denies any recent fall/trauma. Pt has tried OTC Ibuprofen, but its not helping her. No other area pain. Demetrius Brito MD [address], [place], [address], [employer] 07/24/2024 11:38:08 08/13/2024 text/html Pt is here for f /u on her x-ray and pain. Doing overall little better than last visit. Denies any new concern. Pt will be seeing her hand surgeon on 08/19/24. C/o Lt thumb area pain for last few months, on/pff. But for last 1 month, its bothering her more. Pt had b/l CTS surgery done in the past. Pt denies any recent fall/trauma. Pt has tried OTC Ibuprofen, but its not helping her. No other area pain. Demetrius Brito MD [address], [place], [address], [employer] 08/13/2024 14:51:02 OBGyn Episode No OBEpisode recorded.
--- OUTSIDE RECORDS SUMMARY | 2024-09-08 10:54 | XMS_ITS | Data Portability ---
Author Organization [place] - [facility] , [facility] Address [address] [place] [address] Assessment No assessment recorded. Plan of Treatment Reminders Order Date Submit Date Provider Last Modified By Organization Details Last Modified Time Details Appointments None recorded. Lab None recorded. Referral None recorded. Procedures None recorded. Surgeries None recorded. Imaging None recorded. Medication Orders doxycycline hyclate 100 mg capsule 2023 024 [id number], [address] [place], [address], 10:36:58 Patient TargetsNo targets recorded. Patient Instructions Encounter Date Encounter Id Patient Instructions Last Modified By Organization Details Last Modified Time 05/11/2024 [id number] Acute Sinusitis: Care Instructions [email or web address] Not available 05/11/2024 10:36:55 Take medications as prescribed. Drink plenty of fluids. You may take Tylenol and ibuprofen as needed for pain or fever. Follow up with your primary care provider in 3 to 5 days or sooner as needed. [email or web address] Not available 05/11/2024 10:37:48 Reason for Referral None Reported. Medical Equipment None Reported. Allergies Allergen ID Allergen Name Allergen Category Reaction Reaction Severity Criticality Documentation Date Start Date Code Code System Note Provider Name and Address Organization Details Recorded Time 903688 Substance with sulfonami de structure and antibacte rial mechanism of action (substanc e) medicatio n hives Not available Not available 05/11/2024 52230 8002 SNOMED Not Available Included [facility] 10:17:18 Medications Name Sig Start Date Stop [...] SNOMED-CT Code Diagnosis ICD10 Code Diagnosis Note [id number] SHORTY Malagon [facility] [address] [place] [address] 05/11/2024 10:31:09 05/11/2024 16:37:06 Acute sinusitis 04863362 J01.90 Discussed expected course of bacterial sinusitis. [...] Hussein Member ID Guarantor Name 05/11/2024 1 [facility] [id number] Lisa Tapia [id number] Lisa Tapia 05/11/2024 3 *SELF PAY* [id number] Lisa Tapia [id number] Lisa Tapia Notes Date Note Type Note [...] alleviating or aggravating factors. SHORTY Malagon [address] [facility] [address], [place], [address], [facility] - Included [facility] 05/11/2024 10:37:51 OBGyn Episode No OBEpisode recorded.
--- OUTSIDE RECORDS SUMMARY | 2024-09-08 10:55 | XMS_ITS | Clinical Summary ---
Author Organization [facility] Address [address] [place] [address] Care Team Providers Care Supervisor [place] Name Role Phone Unavailable Primary Care Provider [...] Colorectal Cancer Screening Colonoscopy (10 Years) 1955 Hepatitis C 1971 DTaP, Tdap and Td Vaccines ( 1 - Tdap) 02/09/1972 Mammogram Screening 1993 Pneumococcal Vaccine: 50+ Ye ars (1 of 1 - PCV) 2003 Zoster Vaccines (1 of 2) 2003 Annual Medicare Wellness Visit 2018 Dexa Scan (General) 2018 COVID-19 Vaccine ( - 2023-2 5 season) 2024 PHQ-2 (Physician [place]) 05/21/2024 RSV Immunization or 60+ Years (1 [...] patient's age to complete this topic Insurance [place] [address]
--- OUTSIDE RECORDS SUMMARY | 2024-09-08 10:55 | XMS_ITS | Clinical Summary ---
Author Organization [facility] Address [address] [facility] [place] [address] Care Team Providers Care Laundry Aide Name Role Phone Kevin Manzanares MD Unavailable Irvin Ponce Primary Care Provider + Source Comments [facility],non-owned Affiliates and Associated Physician Practices is amultiple site organization consisting of ambulatory clinics and hospital sitesin [place], [place], [place] and [place]. This disclosure is being madepursuant to the Care Everywhere program and may not contain all information available regarding this patient. Last updated 18.[facility] Allergies Active Allergy Reactions Criticality Noted Date Comments Sulfa Drugs Urticaria Medium 01/24/2017 Medications * Be aware that medications may not be up to date on this document. Alwaysverify current medications with the patient. venlafaxine XR 24hr (EFFEXOR XR) 150 MG capsule Take 1 (one) capsule by mouth once daily 4 7 Active benazepril-hyd roCHLOROthiazi de (LOTENSIN HCT) 20-12.5 MG tablet Take 1 (one) tablet by mouth once daily 4 7 Active ferrous sulfate 325 (65 FE) MG tablet Take 1 (one) tablet by mouth daily with food Active vitamin D, ergocalciferol , (DRISDOL) 89292 UNITS capsule Take 1 capsule by mouth every 7 days 8 capsule 7 Active amLODIPine (Norvasc) 5 MG tablet Take 1 (one) tablet by mouth once daily Active cyanocobalamin (Vitamin B-12) injection Inject 1,000 (one thousand) mcg into muscle as needed Active levothyroxine (Synthroid) 137 MCG tablet Take 1 (one) tablet by mouth once daily Active venlafaxine XR 24hr (Effexor XR) 75 MG capsule Take 1 (one) capsule by mouth once daily 3 Active semaglutide (Wegovy) 0.25 MG/0.5ML pen Inject 0.25 (one-quarter) mg subcutaneously as directed Active solifenacin (Vesicare) 10 MG tablet Take 1 (one) tablet by mouth once daily 30 tablet 1 4 Active buPROPion SR 12hr (Wellbutrin-SR ) 150 MG tablet Take 1 (one) tablet by mouth 1 (one) time Active busPIRone (Buspar) 5 MG tablet Take 1 (one) tablet by mouth 3 times daily Active pantoprazole EC (Protonix) 40 MG tabletIndicati ons:Pharyngoes ophageal dysphagia TAKE 1 TABLET BY MOUTH TWICE DAILY 200 tablet 2 4 Active Active Problems Problem Noted Date Diagnosed Date PITER (obstructive sleep apnea) 01/05/2023 Tardive dyskinesia 01/05/2023 Hypertension 01/05/2023 Dyslipidemia 01/05/2023 Anemia 01/05/2023 Hypothyroidism 01/04/2023 Vertigo 01/04/2023 GERD (gastroesophageal reflux disease) 3 Mixed stress and urge urinary incontinence 11/0201/05/2023 Benign paroxysmal positional vertigo 06/07/2022 01/05/2023 Encounters Date Type Department Care Team Description 08/26/2024 10:00 AM CDT Office Visit [facility] [place] [address] [place] , [address] [address] Hong Bledsoe MD Pharyngoesophageal dysphagia (Primary Dx); Gastric stenosis; Gastroesophageal reflux disease without esophagitis 08/26/2024 Travel from Last 3 Months Immunizations Immunization Administration Dates Next Due INFLUENZA VACCINE 03/08/2019,02/18/2018 [...] Patient Health Questionnaire-2 Score 0 05/06/2023 Comments No Sex and Gender Information Value Date Recorded Sex Assigned at Not on file 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 Gender Identity Not on file Sexual Orientation Not on file Last Filed Vital Signs Vital Sign Reading Time Taken Comments Blood Pressure 128/74 08/26/2024 9:34 AM CDT Pulse 65 08/26/2024 9:34 AM CDT Temperature 36.7 C (98 F) 02/20/2024 11:17 AM CDT Respiratory Rate 18 02/20/2024 11:2 5 AM CDT Oxygen Saturation 97% 08/26/2024 9:34 AM CDT Inhaled Oxygen Concentration - - Weight 103.3 kg (227 lb 12.8 oz) 08/26/2024 9:34 AM CDT Height 162.6 cm (5' 4 ) 02/20/2024 9:25 AM CDT Body Mass Index 39.1 02/20/2024 9:25 AM CDT Plan of Treatment Upcoming Encounters Date Type Department Care Team (Latest Contact Info) Description 09/18/2024 9:00 AM CDT Hospital [facility] [address] [place] [id number] [place] [address] [place] [address] Surgery General 09/18/2024 9:00 AM CDT Procedure visit [facility] [place] [id number] [place] [address] 09/18/2024 9:00 AM CDT - 09/18/2024 9:30 AM CDT Surgery [facility] [address] [place] [address] [id number] [place] [address] [place] [address] ESOPHAGOGASTRODUODENOSCOPY (EGD) DIAGNOSTIC 02/24/2025 10:00 AM CDT Office Visit [facility] [place] [id number] [place] [address] [place] [address] [place] [address] Scheduled Procedures Name Priority Associated Diagnoses Date/Ti me ESOPHAGOGASTRODUODENOSCOPY ( EGD) DIAGNOSTIC 09/18/2024 9:00 AM CDT Health Maintenance Due Date Last Done Comments BONE DENSITY TESTING 1955 COLOGUARD (AGES 45-75) - COLON CA SCREENING 1955 CT COLONOGRAPHY - COLON CA SCREENING 1955 FIT - COLON CA SCREENING 1955 FLEX SIG - COLON CA SCREENING 1955 MAMMOGRAM 1955 HEPATITIS C SCREENING 02/04/1971 LIPID TESTING 07/29/2013 07/29/2008 SCREENING FOR DIABETES 08/24/2022 9, 08/20/2008, 08/20/2008, Additional history exists COVID-19 VACCINE ( season) 2024 DEPRESSION SCREENING 05/21/2024 05/07/2023 MEDICARE AWV CALENDAR YEAR 2024 INFLUENZA VACCINE (Season Ended) 2025 02/26/2023, 03/20/2022, 03/21/2019, Additional history exists Respiratory Syncytial Virus (RSV) Vaccine Pt: or [...] complete this topic MENINGOCOCCAL (Group B) VACCINE SHARED DECISION-MAKING Aged Out No longer eligible based on patient's age to complete this topic MENINGOCOCCAL GROUPS A/C/Y/W VACCINE Aged Out No longer eligible based on patient's age to complete this topic Procedures Procedure Name Priority Date/Time Associated Diagnosis Comments ENDOSCOPY, COLON, DIAGNOSTIC Routine 02/20/2024 9:22 AM CDT Positive colorectal cancer screening using Cologuard test BASIC METABOLIC PANEL (CALCIUM TOTAL) Routine 08/21/2008 2:20 AM CDT Morbid Obesity LIPID PROFILE Routine 07/29/2008 5:34 PM CDT Morbid Obesity from Last 3 Months or Most Recently Relevant to Health Maintenance Results * Endoscopy, Colon, Diagnostic (02/20/2024 9:22 AM CDT) Report Endoscopy POC _ Patient Name: Lisa Tapia Procedure Date: 02/20/2024 9:22 AM Date of : 1955 Admit Type: Outpatient Age: 69 Gender: Female Attending MD: Hong Bledsoe MD, [id number] _ Procedure: Colonoscopy Indications: Positive Septin-9 assay [...] by the physician, the nurse and the police crime scene technician in the procedure room. Mental Status Examination: [...] 6 months. Procedure Code(s): --- Professional --- 92051, Colonoscopy, flexible; diagnostic, including collection of specimen(s) by brushing or washing, when performed (separate procedure) --- Technical --- 45292, Colonoscopy, flexible; diagnostic, including collection of specimen(s) by brushing or washing, when performed (separate procedure) Diagnosis Code(s): --- Professional --- K64.0, First degree hemorrhoids R79.9, Abnormal finding of blood chemistry, unspecified --- Technical --- K64.0, First degree hemorrhoids R79.9, Abnormal finding of blood chemistry, unspecified CPT copyright 2020 [employer]. All rights reserved. The codes documented in this report are preliminary and upon shift supervisor review may be revised to meet current compliance requirements. Hong Bledsoe MD 02/20/2024 11:17:07 AM This report has been signed electronically. Number of Addenda: 0 Note Initiated On: 02/20/2024 9:22 AM [facility] 02/20/2024 9:22 AM CDT Hong Bledsoe MD GI PROCEDURE ORDERABLES Edited Result - Final Performing Organization Address City/[facility]/ZIP Co de Phone Number [facility] [place] [address] * (ABNORMAL) BASIC METABOLIC PANEL (CALCIUM TOTAL) (08/21/2008 2:20 AM CDT) BUN 14 7.0 - 17.0 mg/dl [facility] Sodium 134(L) 137 - 145 mEq/L [facility] Potassium 3.6 3.6 - 5.0 mEq/L [facility] Chloride 100 98.0 - 107.0 mEq/L [facility] CO2 26 22.0 - 30.0 mEq/L [facility] Anion Gap 7.8 [facility] Glucose 101 75 - 110 mg/dl [facility] Creatinine 0.8 0.7 - 1.2 mg/dl [facility] Calcium 8.6 8.4 - 10.2 mg/dl [facility] eGFR by MDRD 79.2 ml/min/1.7 3m2 [facility] BLOOD SPECIMEN / Unknown 08/21/2008 2:20 AM CDT Norm Ramon MD LAB - CHEMISTRY ORDERABLES Final Result [facility] [address] [place] [address] * (ABNORMAL) LIPID PROFILE (07/29/2008 5:34 PM CDT) Pathologist [facility] Cholesterol 229(H) 120.0 - 200.0 mg/dl [facility] Triglycerides 184 0.0 - 250.0 mg/dl [facility] HDL Cholesterol 45 >40 mg/dl [facility] LDL Calculated 147.2 mg/dl [facility] Chol HDL Ratio 5.1 [facility] Comment Lipid [facility] Comment: Risk Classification HDL CHOL LDL CHOL TOTAL CHOL According to NCEP (mg/dl) (mg/dL) (mg/dl) Desirable >40 <130 < 200 Borderline/High - 130-159 200-239 High - >159 > 239 The total cholesterol to HDL cholesterol ratio may be used to predict risk for coronary heart disease in untreated patients according to data reported from the Avenue Study by Ayad Coulter M.D. The predictive [...] / Unknown 07/29/2008 5:34 PM CDT Narrative [facility] - 07/29/2008 6:07 PM CDT FAX [phone] us Norm Ramon MD LAB - CHEMISTRY ORDERABLES Final Result [facility] [address] [place] [address] from Last 3 Months or Most Recently Relevant to Health Maintenance Insurance [facility] MEDICARE [place] [id number] [place] [id number] Care Teams Laundry Aide Relationship Specialty Start Date End Date Irvin Ponce PA [address] [place] [id number] PCP - General Physician Regional Clinical Director 12/11/23 [place] [address] [address] Cardiovascular Disease 04/30/12
== END 2024-09-08 09:47 | disposition home or self-care (01) ==
LOC: CHSIMG 09:48
PROVIDERS: PCP Nurse Practitioner Family; Visit Provider Nurse Practitioner Family
DX: Z78.0 Asymptomatic menopausal state (principal); M85.89 Other specified disorders of bone density and structure, multiple sites
CPT/HCPCS: 77080

== ENCOUNTER 2024-11-17 16:08 | Emergency (ER) | payer MEDICARE, SELFPAY ==
--- NOTE | ~2024-11-17 | US_ITS ---
EXAMINATION: US venous doppler LE RT DATE: 11/17/2024 18:37 INDICATION: Lower extremity swelling/mass. TECHNIQUE: Grayscale images without and with compression and Doppler images of the right lower extrem ity veins were obtained. COMPARISON: None FINDINGS: The right common femoral vein, profunda (deep) femoral vein, femoral vein, popliteal vein, peroneal v ein, posterior tibial veins, gastrocnemius vein, and greater saphenous vein are patent. IMPRESSION: Patent right lower extremity veins. No evidence of deep venous thrombosis. Reviewed, dictated and finalized at location K.
--- NOTE | ~2024-11-17 | US_ITS ---
EXAMINATION: US soft tissue LE RT DATE: 11/17/2024 18:37 INDICATION: right lateral leg soft tissue mass suspecthematoma . TECHNIQUE: Grayscale and Doppler ultrasound images of the right lateral lower leg were obtained. COMPARISON: None. FINDINGS: The area of clinical concern was sonographically interrogated, revealing edema in the subcu taneous fat and scattered prominent veins in the subcutaneous fat. No cystic or solid mass detected. IMPRESSION: Subcutaneous edema detected in the area of clinical concern. Reviewed, dictated and finalized at location K.
--- OUTSIDE RECORDS SUMMARY | 2024-11-17 16:11 | XMS_ITS | Clinical Summary ---
Author Organization [facility] Address [address] [place] [address] Care Team Providers Care Boat Builder Name Role Phone Unavailable Primary Care Provider [...] - 2023-2 5 season) 2024 PHQ-2 (Physician [place]) 05/21/2024 RSV Immunization or 60+ Years (1 [...] patient's age to complete this topic Insurance [facility]
--- OUTSIDE RECORDS SUMMARY | 2024-11-17 16:11 | XMS_ITS | Encounter Summary ---
Author Organization [facility] Address [address] [place] [address] Care Team Providers Care Manager Marketing Name Role Phone Kevin Manzanares MD Unavailable Emely Santoyo MD Primary Care Provider [phone] Irvin Ponce Primary Care Provider + [facility] Primary Care Provider Reason for Visit * Reason Onset Date Comments Medication Issue 05/30/2023 Encounter Details Date Type Department Care Team (Late st Contact Info) Description 05/30/2023 Telephone [facility] - JOB CHANGE CREW MEMBER [address] [facility] [address] [place] [address] Se Chua MD [address] [place] [address] Medication Issue Social History Tobacco [...] on file Legal Sex Female 6:54 AM ORCHESTRA CONDUCTOR Gender Identity Not on file Sexual Orientation Not on file documented as of this encounter Miscellaneous Notes * Telephone Encounter - Lucero Jesus LPN - 05/30/2023 1:28 PM ORCHESTRA CONDUCTOR I called the patient - she has tried other medications a long time ago. But can not remember what. The notes say she has tried myrbetriq in the past. Per patient - [facility] suggested oxybutynin , vesicare or myrbetriq. I will check with - see what he is wanting to change to and let her know. Patient is agreeable. ESTRA CONDUCTOR * Telephone Encounter - Kody Sanders - [...] said the Gemtesa is working perfectly. CB: [phone] Thanks. ESTRA CONDUCTOR documented in this encounter Plan of Treatment Upcoming Encounters Date Type Department Care Team (Late st Contact Info) Description 03/02/2025 10:00 AM CDT Office Visit [facility] - [address] [address] [address] [place] [address] [address] documented as of this encounter Visit Diagnoses Not on filedocumented in this encounter Care Teams Manager Marketing Relationship Specialty Start Date End Date Emely Santoyo MD [address] [place] [address] [address] [place] [address] PCP - General Family Medicine 01/09/17 12/10/23 Irvin Ponce PA [address] [place] [address] PCP - General Physician Supervisor Metal Hanging 12/11/23 09/17/24 Cindy Nichols APRN-AUTOMOTIVE SALES EXECUTIVE [address] [place] [address] PCP - General Nurse Practitioner Family 09/18/24 [place] [id number] [address] Cardiovascular Disease 04/30/12 documented as of this encounter
--- OUTSIDE RECORDS SUMMARY | 2024-11-17 16:11 | XMS_ITS | Clinical Summary ---
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 Gender Identity Not on file Sexual Orientation [...] 1:46 PM CDT Height 162.6 cm (5' 4) 07/30/2024 1:46 PM CDT Body Mass Index [...] 02/18/2018 Zoster Vaccine Completed 04/17/2020, 01/16/2020 Insurance [facility] MEDICARE [facility] Address: [facility] [address] [place] [address] [facility] MEDICARE [facility] Address: [facility] [address] [place] [address] Care Teams Real Estate Teacher Relationship Specialty Start Date End Date Emely Santoyo MD [facility] [place] [address] PCP - General Family Medicine 05/04/20
--- OUTSIDE RECORDS SUMMARY | 2024-11-17 16:11 | XMS_ITS | Data Portability ---
Author Organization [place] - [facility] Address [address] [place] [address] Assessment No assessment recorded. Plan of Treatment Reminders Order Date Submit Date Provider Last Modified By Organization Details Last Modified Time Details Appointments None recorded. Lab None recorded. Referral None recorded. Procedures None recorded. Surgeries None recorded. Imaging None recorded. Medication Orders doxycycline hyclate 100 mg capsule 2023 024 [facility][id number], [address] [place], [address], 10:36:58 Patient TargetsNo targets recorded. Patient Instructions Encounter Date Encounter Id Patient Instructions Last Modified By Organization Details Last Modified Time 05/11/2024 [id number] Acute Sinusitis: Care Instructions [email or web address] Not available 05/11/2024 10:36:55 Take medications as prescribed. Drink plenty of fluids. You may take Tylenol and ibuprofen as needed for pain or fever. Follow up with your primary care provider in 3 to 5 days or sooner as needed. [email or web address] Not available 05/11/2024 10:37:48 Reason for Referral None Reported. Medical Equipment None Reported. Allergies Allergen ID Allergen Name Allergen Category Reaction Reaction Severity Criticality Documentation Date Start Date Code Code System Note Provider Name and Address Organization Details Recorded Time [id number] Substance with sulfonami de structure and antibacte rial mechanism of action (substanc e) medicatio n hives Not available Not available 05/11/2024 [id number] SNOMED Not Available [facility] - [facility] 10:17:18 Medications Name Sig Start Date Stop Date Status Note LastModified by Organization Details LastModified Time doxycycline hyclate 100 mg capsule Take one capsule by mouth twice daily x 7 days. 2023 active Not Available Not Available Not Avai lable amlodipine 5 mg tablet active ADDED BY JOAQUINA Smith: Not Available Not Available Not Available caffeine-sodiu [...] Not Available solifenacin active ADDED BY JOAQUINA Smith: 10mg Not Available Not Available Not Available [...] SNOMED-CT Code Diagnosis ICD10 Code Diagnosis Note [id number] SHORTY Malagon [facility] [address] [place] [address] 05/11/2024 10:31:09 05/11/2024 16:37:06 Acute sinusitis [id number] J01.90 Discussed expected course of bacterial sinusitis. [...] Concerns Section Related Observation LastModified by Organization Layne cunningham LastModified Time None Recorded Concern Status LastModified by Organization Details LastModified Time None Recorded Advance Directives Directive None Recorded Payers Insurance Date Sequence Insurance Name Policy Number Policy Hussein Covered Member ID Hussein Member ID Guarantor Name 05/11/2024 3 *SELF PAY* [id number] Lisa Tapia [id number] Lisa Tapia 05/11/2024 2 [facility] [id number] Lisa Tapia [id number] Lisa Tapia 05/11/2024 1 *SELF PAY* Meme Dhaliwal 05/11/2024 [employer] [id number] Lisa Tapia [id number] Lisa Tapia 05/23/2024 1 [facility] [id number] Lisa Tapia [id number] Lisa Tapia Notes Date Note Type Note [...] alleviating or aggravating factors. SHORTY Malagon [address] [facility] [address], [place], [address], [facility] 05/11/2024 10:37:51 OBGyn Episode No OBEpisode recorded.
--- OUTSIDE RECORDS SUMMARY | 2024-11-17 16:11 | XMS_ITS | Clinical Summary ---
Author Organization [facility] Address [address] [facility] [place] [address] Care Team Providers Care Claim Specialist Name Role Phone Kevin Manzanares MD Unavailable Cindy Nichols APRN-SURGERY NURSE Primary Care Provider Source Comments [facility],non-owned Affiliates and Associated Physician Practices is amultiple site organization consisting of ambulatory clinics and hospital sitesin [place], [place], [place] and [place]. This disclosure is being madepursuant to the Care Everywhere program and may not contain all information available regarding this patient. Last updated 18.[facility] Allergies Active Allergy Reactions Criticality Noted Date [...] food Active vitamin D, ergocalciferol , (DRISDOL) 63470 UNITS capsule Take 1 capsule by mouth [...] (Protonix) 40 MG tabletIndicati ons:Pharyngoes ophageal dysphagia Take 1 (one) tablet by mouth 2 times daily 200 tablet 2 5 Active Active Problems Problem Noted Date Diagnosed Date PITER (obstructive sleep apnea) 01/05/2023 Tardive dyskinesia 01/05/2023 Hypertension 01/05/2023 Dyslipidemia 01/05/2023 Anemia 01/05/2023 Hypothyroidism 01/04/2023 Vertigo 01/04/2023 GERD (gastroesophageal reflux disease) 3 Mixed stress and urge urinary incontinence 11/0201/05/2023 Benign paroxysmal positional vertigo 06/07/2022 01/05/2023 Encounters Date Type Department Care Team Description 09/18/2024 9:42 AM CDT Anesthesia Event [facility] [address] [place] [address] Salbador Bryan DO Hughes, Riley 09/18/2024 9:00 AM CDT - 09/18/2024 9:30 AM CDT Surgery [facility] [address] [place] [address] Hong Bledsoe MD ESOPHAGOGASTRODUODENOSCOPY (EGD) DIAGNOSTIC 09/18/2024 7:46 AM CDT - 09/18/2024 10:40 AM CDT Hospital Encounter [facility] - [facility]oscopy Services [address] [place] [address] Hong Bledsoe MD Surgery General Discharge Disposition: Home or Self Care 09/18/2024 Travel 09/09/2024 Refill [facility] [address] [address], [address] [place] [address] Hong Bledsoe MD MEDICATION REFILL 08/26/2024 10:00 AM CDT Office [place] [address] [address] Khan, [address] [place] [address] Hong Bledsoe MD Pharyngoesophageal dysphagia (Primary Dx); [...] on file 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 Gender Identity Not on file Sexual Orientation Not on file Last Filed Vital Signs Vital Sign Reading Time Taken Comments Blood Pressure 122/76 09/18/2024 10:25 AM CDT Pulse 59 09/18/2024 10:30 AM CDT Temperature 37 C (98.6 F) 09/18/2024 10:11 AM CDT Respiratory Rate 22 09/18/2024 10:30 AM CDT Oxygen Saturation 97% 09/18/2024 10:30 AM CDT Inhaled Oxygen Concentration - - Weight 103 kg (227 lb) 09/18/2024 8:14 AM CDT Height 157.5 cm (5' 2) 09/18/2024 8:14 AM CDT Body Mass Index 41.52 09/18/2024 8:14 AM CDT Plan of Treatment Upcoming Encounters Date Type Department Care Team (Late st Contact Info) Description 03/02/2025 10:00 AM CDT Office Visit [facility] [place] [address] Pi[address] Khan, [facility] [address] [place] [address] [place] [address] [facility] [address] [place] [address] Health Maintenance Due Date Last Done Comments BONE DENSITY TESTING 1955 COLOGUARD (AGES 45-75) - COLON CA SCREENING 1955 CT COLONOGRAPHY - COLON CA SCREENING 1955 FIT - COLON CA SCREENING 1955 FLEX SIG - COLON CA SCREENING 1955 MAMMOGRAM 1955 HEPATITIS C SCREENING 02/04/1971 Respiratory Syncytial Virus (RSV) Vaccine Pt: or over 60 yrs (1 - Risk 60-74 years 1-dose series) 2013 LIPID TESTING 07/29/2013 07/29/2008 SCREENING FOR DIABETES 08/24/2022 9, 08/20/2008, 08/20/2008, Additional history exists COVID-19 VACCINE ( season) 2024 DEPRESSION SCREENING 05/21/2024 05/07/2023 MEDICARE AWV CALENDAR YEAR 2024 INFLUENZA VACCINE (Season Ended) 2025 02/26/2023, 03/20/2022, 03/21/2019, Additional history exists DTAP/TDAP/TD VACCINES (2 - Td or Tdap) [...] Procedure Name Priority Date/Time Associated Diagnosis Comments DE ED EGD FLEX TRANSORAL DX 09/18/2024 9:00 AM CDT EGD Routine 09/18/2024 8:12 AM CDT Pharyngoesophageal dysphagia Gastric stenosis ENDOSCOPY, COLON, DIAGNOSTIC Routine 02/20/2024 9:22 AM CDT Positive colorectal cancer screening using Cologuard test BASIC METABOLIC PANEL (CALCIUM TOTAL) Routine 08/21/2008 2:20 AM CDT Morbid Obesity LIPID PROFILE Routine 07/29/2008 5:34 PM CDT Morbid Obesity from Last 3 Months or Most Recently Relevant to Health Maintenance Results * EGD (09/18/2024 8:12 AM CDT) Report Endoscopy POC _ Patient Name: Lisa Tapia Procedure Date: 09/18/2024 8:12 AM Date of : 1955 Admit Type: Outpatient Age: 69 Gender: Female Attending MD: Hong Bledsoe MD, [id number] _ Procedure: Upper GI endoscopy Indications: Abdominal pain, Management of operative complication: Dilation of anastomotic stricture Providers: Hong Bledsoe MD (Doctor) Referring MD: Cindy Nichols (Referring MD) Medicines: Monitored Anesthesia Care Complications: No immediate complications. _ Estimated Blood Loss: Estimated blood loss was minimal. Procedure: Pre-Anesthesia Assessment: - Prior to the procedure, a History and Physical was performed, and patient medications, allergies and sensitivities were reviewed. The patient's tolerance of previous anesthesia was reviewed. - The risks and benefits of the procedure and the sedation options and risks were discussed with the patient. All questions were answered and informed consent was obtained. - Patient identification and proposed procedure were verified prior to the procedure by the physician, the nurse and the air bag builder. The procedure was verified in the procedure room. - ASA Grade Assessment: III - A patient with severe systemic disease. - Prior Anticoagulants: The patient has taken no anticoagulant or antiplatelet agents. After obtaining informed consent, the endoscope was passed under direct vision. Throughout the procedure, the patient's blood pressure, pulse, and oxygen saturations were monitored continuously. The was introduced through the mouth, and advanced to the afferent jejunal loop. The upper GI endoscopy was accomplished without difficulty. The patient tolerated the procedure well. Findings: The examined esophagus was normal. The Z-line was regular and was found 36 cm from the incisors. Evidence of a Mamta-en-Y gastrojejunostomy was found. The gastrojejunal anastomosis was characterized by moderate stenosis. This was traversed. The widhe-bl-gtvulgh limb was characterized by moderate stenosis. The jejunojejunal anastomosis was characterized by healthy appearing mucosa. The gdfihmlo-gz-ihxmrdq limb was not examined as it could not be found. The excluded stomach was not examined as it could not be found. A TTS dilator was passed through the scope. Dilation with a 12-13.5-15 mm and a 15-16.5-18 mm pyloric balloon dilator was performed. The dilation site was examined following endoscope reinsertion and showed complete resolution of luminal narrowing. Estimated blood loss was minimal. The examined jejunum was normal. _ Impression: - Normal esophagus. - Z-line regular, 36 cm from the incisors. - Mamta-en-Y gastrojejunostomy with gastrojejunal anastomosis characterized by moderate stenosis. Dilated. - Normal examined jejunum. - No specimens collected. Recommendation: - Discharge patient to home. - Liquid diet for today, soft diet for next 3 days then regular diet as tolerated. - Continue present medications, pantoprazole twice daily for next 2 months then once daily. - No aspirin, ibuprofen, naproxen, or other non-steroidal anti-inflammatory drugs. - Return to Gi clinic as needed. Procedure Code(s): --- Professional --- 79161, Esophagogastroduoden oscopy, flexible, transoral; with dilation of gastric/duodenal stricture(s) (eg, balloon, bougie) --- Technical --- 33826, Esophagogastroduoden oscopy, flexible, transoral; with dilation of gastric/duodenal stricture(s) (eg, balloon, bougie) Diagnosis Code(s): --- Professional --- Z98.0, Intestinal bypass and anastomosis status R10.9, Unspecified abdominal pain K91.89, Other postprocedural complications and disorders of digestive system --- Technical --- Z98.0, Intestinal bypass and anastomosis status R10.9, Unspecified abdominal pain K91.89, Other postprocedural complications and disorders of digestive system CPT copyright 2020 [employer]. All rights reserved. The codes documented in this report are preliminary and upon police records clerk review may be revised to meet current compliance requirements. Hong Bledsoe MD 09/18/2024 10:14:52 AM This report has been signed electronically. Number of Addenda: 0 Note Initiated On: 09/18/2024 8:12 AM [facility] 09/18/2024 8:12 AM CDT us Adrianna Batista APRN-SURGERY NURSE GI PROCEDURE ORDERABLE S Edited Result - Final [facility] [place] [address] * Endoscopy, Colon, Diagnostic (02/20/2024 9:22 AM CDT) Report Endoscopy POC _ Patient Name: Lisa Tapia Procedure Date: 02/20/2024 9:22 AM Date of : 1955 Admit Type: Outpatient Age: 69 Gender: Female Attending MD: Hong Bledsoe MD, [id number] _ Procedure: Colonoscopy Indications: Positive Septin-9 assay [...] by the physician, the nurse and the air bag builder in the procedure room. Mental Status Examination: [...] 6 months. Procedure Code(s): --- Professional --- 17342, Colonoscopy, flexible; diagnostic, including collection of specimen(s) by brushing or washing, when performed (separate procedure) --- Technical --- 88208, Colonoscopy, flexible; diagnostic, including collection of specimen(s) by brushing or washing, when performed (separate procedure) Diagnosis Code(s): --- Professional --- K64.0, First degree hemorrhoids R79.9, Abnormal finding of blood chemistry, unspecified --- Technical --- K64.0, First degree hemorrhoids R79.9, Abnormal finding of blood chemistry, unspecified CPT copyright 2020 [employer]. All rights reserved. The codes documented in this report are preliminary and upon police records clerk review may be revised to meet current compliance requirements. Hong Bledsoe MD 02/20/2024 11:17:07 AM This report has been signed electronically. Number of Addenda: 0 Note Initiated On: 02/20/2024 9:22 AM [facility] 02/20/2024 9:22 AM CDT Hong Bledsoe MD GI PROCEDURE ORDERABLES Edited Result - Final Performing Organization Address City/[facility] Co de Phone Number [facility] [place] [address] * (ABNORMAL) BASIC METABOLIC PANEL (CALCIUM TOTAL) (08/21/2008 2:20 AM CDT) BUN 14 7.0 - 17.0 mg/dl [facility] Sodium 134(L) 137 - 145 mEq/L [facility] Potassium 3.6 3.6 - 5.0 mEq/L [facility] Chloride 100 98.0 - 107.0 mEq/L [facility] CO2 26 22.0 - 30.0 mEq/L [facility] Anion Gap 7.8 [facility] Glucose 101 75 - 110 mg/dl [facility] Creatinine 0.8 0.7 - 1.2 mg/dl [facility] Calcium 8.6 8.4 - 10.2 mg/dl [facility] eGFR by MDRD 79.2 ml/min/1.7 3m2 [facility] BLOOD SPECIMEN / Unknown 08/21/2008 2:20 AM CDT Norm Ramon MD LAB - CHEMISTRY ORDERABLES Final Result Performing Organization Address [facility] Co de Phone Number [facility] [address] [place] [address] * (ABNORMAL) LIPID PROFILE (07/29/2008 5:34 PM CDT) Cholesterol 229(H) 120.0 - 200.0 mg/dl [facility] Triglycerides 184 0.0 - 250.0 mg/dl [facility] HDL Cholesterol 45 >40 mg/dl [facility] LDL Calculated 147.2 mg/dl [facility] Chol HDL Ratio 5.1 [facility] Comment Lipid [facility] Comment: Risk Classification HDL CHOL LDL CHOL TOTAL CHOL According to NCEP (mg/dl) (mg/dL) (mg/dl) Desirable >40 <130 < 200 Borderline/High - 130-159 200-239 High - >159 > 239 The total cholesterol to HDL cholesterol ratio may be used to predict risk for coronary heart disease in untreated patients according to data reported from the Kellogg Study by Ayad Coulter M.D. The predictive [...] / Unknown 07/29/2008 5:34 PM CDT Narrative [facility] - 07/29/2008 6:07 PM CDT FAX [phone] us Norm Ramon MD LAB - CHEMISTRY ORDERABLES Final Result [facility] [address] [place] [address] from Last 3 Months or Most Recently Relevant to Health Maintenance Insurance [facility] MANAGED MEDICARE ADV Care Teams Claim Specialist Relationship Specialty Start Date End Date Cindy Nichols APRN-SURGERY NURSE [address] [place] [address] PCP - General Nurse Practitioner Family 09/18/24 [place] [address] [address] Cardiovascular Disease 04/30/12
--- OUTSIDE RECORDS SUMMARY | 2024-11-17 16:11 | XMS_ITS | Data Portability ---
Author Organization [place] [facility], Main Office Address [address] [place] [address] Assessment Encounter Date Assessment Date Assessment LastModified by Organization Details LastModified Time 05/07/2024 05/07/2024 Assessment: Rhinitis Very severe OSAHS, AHI = 91 PLMD Iron deficiency B12 deficiency Plan: The following were reviewed and explained to the patient: [place] split night sleep study 02/21/06 sleep onset = immediate, REM onset = none, AHI = 91, ResMed small full face mask @ 12 cmH2O, PLMI = 172 [facility] split night sleep study 01/28/24 sleep onset [...] carrier. Patient will setup an appointment with [facility] for supplies and pressure adjustments. [...] further management. Follow-up: 3 months, July 2024 [facility] Not available 05/07/2024 12:11:45 07/17/2024 07/17/2024 Assessment: Rhinitis Very severe OSAHS, AHI = 91 PLMD Iron deficiency B12 deficiency Plan: The following were reviewed and explained to the patient: [place] split night sleep study 02/21/06 sleep onset = immediate, REM onset = none, AHI = 91, ResMed small full face mask @ 12 cmH2O, PLMI = 172 [facility] split night sleep study 01/28/24 sleep onset [...] carrier. Patient will setup an appointment with [facility] for supplies and pressure adjustments. [...] further management. Follow-up: 3 months, September 2024 Not available 07/17/2024 10:24:11 07/24/2024 07/24/2024 Advised pt to f/ u with her Ortho in [facility] in 2-3 weeks. [email or web address] Not available 07/24/2024 11:36:49 08/13/2024 08/13/2024 Advised pt to f/ u with her Ortho in [facility] on 08/19/24. [email or web address] Not available 08/13/2024 14:50:37 10/14/2024 10/14/2024 Assessment: Rhinitis Very severe OSAHS, AHI = 91 PLMD Iron deficiency B12 deficiency Plan: The following were reviewed and explained to the patient: [place] split night sleep study 02/21/06 sleep onset = immediate, REM onset = none, AHI = 91, ResMed small full face mask @ 12 cmH2O, PLMI = 172 [facility] split night sleep study 01/28/24 sleep onset = 15.5 minutes, REM onset = 312 minutes, AHI = 61, supine AHI = 65, Respironics large Dream Wisp nasal mask @ 5-20 cmH2O, PLMI= 7 Ferritin 11/29/23 2 ng/mL Ferritin 05/05/24 17 ng/mL Ferritin 07/11/24 18 ng/mL Ferritin 09/04/24 19 ng/mL B12 11/29/23 367 pg/mL B12 05/05/24 473 pg/mL B12 07/11/24 842 pg/mL B12 09/04/24 374 pg/mL Elevation in periodic limb movement index [...] Patient will continue B12 1 mg but increase from twice weekly to every other day to keep the levels > 400 pg/ml. Check ferritin and B12 one week before return. We will hold off on dopaminergic therapy for now. PAP compliance downloaded and interpreted x 20 minutes. Data reviewed and explained to the patient. Average apnea/hypopnea index (AHI) is 5.4. Patient used PAP > 4 hours 93% of the time. PAP is set at 7-11 cmH2O. PAP will be reset at 8-11 cmH2O. Oxygen supplementation: none Keep ramp start [...] carrier. Patient will setup an appointment with [facility] for supplies and pressure adjustments. [...] PCP for further management. Follow-up: 3 months, December 2024 [facility] Not available 10/14/2024 09:12:53 Plan of Treatment Reminders Order Date Submit Date Provider Last Modified By Organization Details Last Modified Time Details Appointments Any 15 2024 07:45A Jenny Hernandez MD Not available Not available Not available Lab ferritin, serum or plasma [address] (Lab), [address] [place], [address], 10/14/2024 09:12:21 vitamin B12, serum [address] (Lab), [address] [place], [address], 10/14/2024 09:12:57 ferritin, serum or plasma [address] [place] [address] (Lab), [address] [place], [address], 10/16/2024 09:05:22 vitamin B12, serum 2024 025 [facility] (Lab), [address] [place], [address], 10/15/2024 18:47:25 ferritin, serum or plasma 2023 025 [facility] (Lab), [address] [place], [address], 07/16/2024 17:31:00 vitamin B12, serum 2023 025 [facility] (Lab), [address] [place], [address], 07/23/2024 10:24:31 Referral None recorded. Procedures None recorded. Surgeries None recorded. Imaging XR, hand, 3 or more view 2024 025 [email or web address] [facility], [address], [address], [place], [address], 07/28/2024 09:46:24 Medication Orders ferrous sulfate 325 mg (65 mg iron) tablet 2024 025 LINDSAY [facility], [address], [address], [place], [place], [id number], 10/14/2024 09:12:25 Vitamin C 500 mg tablet 2024 025 LINDSAY [facility], [address], [address], [place], [place], [id number], 10/14/2024 09:12:24 Vitamin B-12 1,000 mcg tablet 2024 025 LINDSAY [facility], [address], [address], [place], [place], [id number], 10/14/2024 09:12:24 diclofena c sodium 75 mg tablet,de layed release 2024 025 [id number], [address] [place], [address], 08/13/2024 14:46:02 prednison e 10 mg tablet 2024 025 [id number], [address] [place], [address], 07/24/2024 11:30:09 ketorolac 60 mg/2 mL intramusc ular solution 2024 025 [email or web address] Not available 07/24/2024 12:23:59 ferrous sulfate 325 mg (65 mg iron) tablet 2024 025 LINDSAY [facility], [address], [address], [place], [place], [id number], 07/17/2024 10:28:54 Vitamin C 500 mg tablet 2024 025 CRISTIAN [facility], [address], [address], [place], [place], [id number], 07/17/2024 10:28:55 Vitamin B-12 1,000 mcg tablet 2024 025 CRISTIAN [facility], [address], [address], [place], [place], [id number], 07/17/2024 10:28:56 ferrous sulfate 325 mg (65 mg iron) tablet 2023 024 CRISTIAN [facility], [address], [address], [place], [place], [id number], 05/07/2024 12:12:48 Vitamin C 500 mg tablet 2023 024 CRISTIAN [facility], [address], [address], [place], [place], [id number], 05/07/2024 12:12:48 Vitamin B-12 1,000 mcg tablet 2023 024 CRISTIAN [facility], [address], [facility] [address], [place], [place], [id number], 05/07/2024 12:13:36 Patient TargetsNo targets recorded. Patient InstructionsNo instructions recorded. Reason for Referral None Reported. Results Created Date Observation Date Name Description Value Unit Range Abnormal Flag Note LastModifiedBy Organization Detail LastModifiedTime 05/05/20 24 05/06/2024 DOREEN TIN ferritin 17 NG/mL 16-288 normal Not Available [employer] [facility] [address] [place], [address], 05/06/2024 05:06:54 05/05/20 24 05/06/2024 VITAM IN B12 vitamin B12 473 pg/mL 200-11 00 normal Not Available [employer] [facility] [address] [place], [address], 05/06/2024 05:06:56 07/25/19 25 07/24/2024 XR, hand, 3 or more view No observ ation record ed. [email or web address] [facility] [address] [facility] [address], [place], [address], 08/13/2024 14:42:07 Result Notes None recorded. Problems Name Problem SNOMED Code Status Onset Date Resolution Date Notes Provider Name and Address Organization Details Recorded Time Benign paroxysma l positiona l vertigo 533142820 Active 2022 Not Available [facility] 15:51:54 Cobalamin deficienc y 342687543 Active Not Available [facility] 15:51:54 Anemia 790109802 Active Not Available [facility] 15:51:54 Arthritis 6402595 Active Not Available [facility] 15:51:54 Hypertens andre disorder 70847635 Active Not Available [facility] 15:51:54 Tension-t ype headache 793688428 Active Not Available [facility] 3 15:51:54 Multiple skin tags 949811812 Active Not Available [facility] 3 15:51:54 Attention deficit hyperacti vity disorder 469835534 Active Not Available [facility] 3 15:51:54 Hypothyro idism 30307298 Active Not Available [facility] 3 15:51:54 Hiatal hernia 06657308 Active Not Available [facility] 3 15:51:54 Obesity 188000126 Active 2022 Not Available [facility] 3 15:51:54 Mixed urinary incontine nce 896071984 Active 2022 Not Available [facility] 3 15:51:54 Mixed anxiety and depressiv e disorder 776783740 Active 2022 Not Available [facility] 3 15:51:54 High hemoglobi n A1c level 162752969 Active 2023 RONEN Sebastian [address], [address], [place], [address] , [facility] 4 11:15:36 Hyperlipi demia 88940670 Active 2023 RONEN Sebastian [address], [address], [place], [address] , [facility] 4 11:18:47 Tardive dyskinesi a 041293755 Active 2023 sees robles specialis t in [facility] RONEN Sebastian [address], [address], [place], [address] , [facility] 4 10:45:38 Irritable bowel syndrome character ized by constipat ion 120520486 Active 2023 Hortencia Pete RN null, [facility] 4 12:16:51 Bilateral carpal tunnel syndrome 40698188067 869072 Active 2023 see nerve conductio n : 11/02/2023 RONEN Sebastian [address], [address], [place], [address] , [facility] 4 10:34:58 Obstructi ve sleep apnea syndrome 48327948 Active 2023 Jerod Hernandez MD [address], [address] [address], [place], [address] , [facility] 4 15:58:15 Periodic limb movement disorder 995181707 Active 2023 Jerod Hernandez MD [address], [address], [place], [address] , [facility] 4 16:08:41 Iron deficienc y 97491102 Active 2023 Jerod Hernandez MD [address], [address] [address], [place], [address] , [facility] 4 13:59:55 Screening for malignant neoplasm of colon Active 2023 RONEN Sebastian [address], [address], [place], [address] , [facility] 4 22:06:13 Pain of left hand 56981204913 9103 Active 2024 Demetrius Brito MD [address], [address] [address], [place], [address] , [facility] 5 11:25:48 Strain of thumb tendon 244791936 Active 2024 Demetrius Brito MD [address], [address] [address], [place], [address] , [facility] 5 11:27:41 History of decompres oseas of median nerve 160118075 Active 2024 Demetrius Brito MD [address], [address] [address], [place], [address] , [facility] 5 11:35:43 Dysuria 74701002 Active 2024 RONEN Sebastian [address] [employer], [place], [address] , [place] [employer] 13:57:50 Celluliti s 168457167 Active [address] 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 Procedures Surgical History Date Name Laterality Status Provider Name and Address Organization Details Recorded Time 01/09/20 Medicare Wellness CPT Code, subsequent completed Adrianna Lopez RN [email or web address] 01/09/2024 12:11:38 11/19/19 EGD completed Adrianna Lopez RN [facility] [employer] 01/09/2024 12:18:10 section completed Not Available [facility] 07/19/2022 07:26:38 Cholecystectomy completed Not Available [facility] 07/19/2022 07:26:38 Knee Replacement completed Not Available [facility] 07/19/2022 07:26:38 Hysterectomy completed Not Available [facility] 07/19/2022 07:26:38 Gastric Bypass completed Not Available [facility] 07/19/2022 07:26:38 Imaging Results None recorded. Procedure Notes None recorded. Medical Equipment None Reported. Allergies Allergen ID Allergen Name Allergen Category Reaction Reaction Severity Criticality Documentation Date Start Date Code Code System Note Provider Name and Address Organization Details Recorded Time 60988 Substance with sulfonami de structure and antibacte rial mechanism of action (substanc e) medicatio n Not available Not available Not available 07/19/2022 23157 8003 SNOMED Not Available [facility] 3 07:34:44 Medications Name Sig Start Date Stop Date Status Note LastModified by Organization Details LastModified Time Prescriptio n - New active Not Available Not Available Not Available quetiapine 25 mg tablet TAKE 1 TABLET [...] MAY REPEAT IN 10 DAYS IF NEEDED active Not Available Not Available No t Available benzonatate 200 mg capsule Take 1 [...] 1 USE TO INJECT B12 ONCE WEEKLY active Not Available Not Available No t Available misoprostol 100 mcg tablet 11/20 completed [...] tablet every other day by oral route. 2024 active Not [...] Not Available Not Available Vitals Date Recorded Heart rate Respiratory rate Provider N danielle and Address Organization Details Last Updated DateTime 07/17/2024 65 /min 14 /min Jerod Hernandez MD [address] [facility], [facility] [address], [place], [address], [facility] [email or web address] [facility] 07/17/2024 10:32:51 Date Recorded Body height Body mass index (BMI) Body weight Heart rate Oxygen saturation Oxygen saturation in Arterial blood by Pulse oximetry Body temperature Systolic blood pressure Diastolic blood pressure Provider Name and Address Organization Details Last Updated DateTime 162.56 cm 39.5 kg/m2 373965. 25 g 65 /min 98 % 98 % 98 [degF] 118 mm[Hg] 68 mm[Hg] Wanda Qureshi MA [facility] [email or web address] [facility] 5 10:08:59 Date Recorded Body height Body mass index (BMI) Body weight Body temperature Oxygen saturation Oxygen saturation in Arterial blood by Pulse oximetry Heart rate Systolic blood pressure Diastolic blood pressure Provider Name and Address Organization Details Last Updated DateTime 162.56 cm 38.7 kg/m2 768399. 08 g 97.9 [degF] 97 % 97 % 71 /min 140 mm[Hg] 70 mm[Hg] Gricel Quesada RN [facility] [email or web address] [facility] 5 11:20:47 Date Recorded Body height Body mass index (BMI) Body weight Body temperature Oxygen saturation Oxygen saturation in Arterial blood by Pulse oximetry Heart rate Systolic blood pressure Diastolic blood pressure Provider Name and Address Organization Details Last Updated DateTime 162.56 cm 38.7 kg/m2 486063. 43 g 97.4 [degF] 96 % 96 % 72 /min 120 mm[Hg] 64 mm[Hg] Gricel Quesada RN [facility] [email or web address] [facility] 5 14:38:27 Date Recorded Body height Body mass index (BMI) Body weight Heart rate Heart rate Respiratory rate Provider Name and Address Organization Details Last Updated DateTime 10/14/2024 162.56 cm 39.1 kg/m2 226853. 62 g 63 /min 63 /min 15 /min Jerod Hernandez MD [address] [place] [address], [address], [facility] [email or web address] [facility] 09:21:30 Date Recorded Body temperature Oxygen saturation Oxygen saturation in Arterial blood by Pulse oximetry Systolic blood pressure Diastolic blood pressure Provider Name and Address Organization Details Last Updated DateTime 05/27/202 5 98.5 [degF] 95 % 95 % 124 mm[Hg] 68 mm[Hg] Wanda Qureshi [place] [employer] [facility] [employer] 5 09:22:33 Date Recorded Heart rate Respiratory rate Provider Lui danielle and Address Organization Details Last Updated DateTime 05/07/2024 66 /min 15 /min Jerod Hernandez MD [address] [facility], [facility] [address], [place], [address], [facility] [employer] 05/07/2024 12:26:07 Date Recorded Body height Body mass index (BMI) Body weight Body temperature Heart rate Oxygen saturation Oxygen saturation in Arterial blood by Pulse oximetry Systolic blood pressure Diastolic blood pressure Provider Name and Address Organization Details Last Updated DateTime 162.56 cm 37.8 kg/m2 99718.3 2 g 98 [degF] 66 /min 98 % 98 % 122 mm[Hg] 66 mm[Hg] Wanda Qureshi [place] [employer] [facility] [employer] 4 11:51:28 Social History Question Answer Notes LastModified by Organizat ion Details LastModified Time Tobacco Smoking Status Never Smoker Valencia paiz, [facility] [employer] 07/03/2023 10:27:25 In The 14 Days Before Symptom Onset, Have You Had Close Contact With A Laboratory-confirm ed COVID-19 While That Case Was Ill? No Information n ot available 11/28/2023 In The 14 Days Before Symptom Onset, Have You Had Close Contact With A Person Who Is Under Investigation For COVID-19 While That Person Was Ill? No Information not available 11/28/2023 What Type Of [...] no t available 11/28/2023 Do You Use Sunscreen Routinely? Yes Information not available 11/28/2023 Have You Recently Traveled Abroad? No Information not available 11/28/2023 Do You Have Any Dietary Restrictions? No Information not available 11/28/2023 Sex: Unknown Functional Status Question Answer Note LastModified by Organizat ion Details LastModified Time Do you use any illicit or recreational drugs? No Information not available 11/28/2023 What is your level of alcohol consumption? None [id number] Information not available 07/19/2022 Are you currently employed? No Retired Information not available 11/28/2023 Have you been exposed to chemicals or toxins? not that aware of Information not available 11/28/2023 What is your exercise level? Moderate Information [...] Not available 2023 15:54:54 Paternal Grandfather Malignant neoplasm of lung Not available 2023 15:55:42 Paternal Grandfather Alcoholism Not available 02/2024 15:58:07 Paternal Aunt Malignant tumor of breast Not available 2023 15:55:58 Paternal Aunt Malignant neoplasm of lung Not available 2023 15:56:03 Paternal Uncle Malignant neoplasm of lung Not available 2023 15:56:12 Maternal [...] HAVE YOU BEEN HOSPITALIZED OR SEEN IN [facility] IN THE PAST YEAR ? N [...] high-dose, quadrivalent, PF 2 completed Not Available [facility] 02/16/2023 22:31:43 pneumococcal polysaccharide PPV23 9 completed Not Available [facility] 02/16/2023 22:31:43 Influenza, high-dose, trivalent, PF 8 completed Not Available [facility] 02/16/2023 22:31:43 Pneumococcal conjugate PCV 13 8 completed Not Available [facility] 02/16/2023 22:31:43 Past Encounters Encounter ID Performer Location Encounter Start Date Encounter Closed Date Diagnosis/Indication Diagnosis SNOMED-CT Code Diagnosis ICD10 Code Diagnosis Note [id number] Emely Santoyo MD [facility] [place] [address] [place] [address] y , [place] [address] 09/14/2021 00:00:00 09/14/2021 13:55:04 [id number] Emely Santoyo MD [facility] [place] [address] [place] [address] y , [place] [address] 02/06/2022 00:00:00 02/06/2022 18:41:56 [id number] Emely Santoyo MD [facility] [address] [facility] [place] [address] 03/20/2022 00:00:00 03/21/2022 06:02:28 [id number] Emely Santoyo MD [facility] [address] [address] [place] [address] [place] [address] 04/18/2022 00:00:00 04/18/2022 12:50:52 [id number] Hang Means MD [facility] [place] [address] [place] [address] 06/08/2022 00:00:00 06/08/2022 11:42:40 [id number] Emely Santoyo MD [facility] [place] [address] [place] [address] [place] [address] 09/11/2022 15:41:32 09/11/2022 16:42:46 Upper respiratory infection 53284634 J06.9 SxRx Simply saline nasal spray and hot packs to face. If sx worsen she is to go get a COVID test and call me with results. [id number] Emely Santoyo MD [facility] [address] [address] [place] [address] [place] [address] 09/27/2022 12:26:15 09/27/2022 12:56:48 Acute sinusitis 36187580 J01.90 Candidiasis of mouth 797 33165 B37.0 Obesity 510869392 E66.9 [id number] Emely Santoyo MD [facility] [address] [place] [address] 10/03/2022 15:54:01 10/05/2022 16:01:11 Acute urinary tract infection 954592612 N39.0 [id number] Eemly Santoyo MD [facility] [place] [address] [place] [address] [place] [address] 11/02/2022 11:24:00 11/02/2022 12:01:09 Glossitis 30338394 K14.0 F/u with ENTTongue scraping done and wet mount done no evidence of yeast Xerostomia 46558454 R68. 2 Drink 64 OZ of water per day. Mixed urin mary jane incontinence 765171084 N39.46 Call for referral to Urologist. [id number] Emely Santoyo MD [facility] [place] [address] [place] [address] [place] [address] 01/08/2023 11:05:31 01/08/2023 12:06:15 Mixed anxiety and depressive disorder 622439748 F41.8 Obesity 512614274 E66.9 Urinary incontinence 165 055213 R32 Pain of bi lateral knee joints 1898433358 27528 M25.833 [id number] Emeyl Santoyo MD [facility] [address] [place] [address] 06/12/2023 10:23:57 06/12/2023 11:21:56 Hypothyroidism 43539265 E03.9 Anxiety 95850231 F41.9 Mixed anxi ety and depressive disorder 061743722 F41.8 Attention deficit hyperactivity disorder 389151745 F90.9 Essential hypertension 08784139 I10 Serum ari min B12 below reference range 910717174 R79.89 Anemia 713169452 D64.9 High hemog lobin A1c level 066410104 R73.09 Hyperlipidemia 42367026 E78.5 Cellulitis 265882111 L03 .90 [id number] Emely Santoyo MD [facility] [address] [facility] [place] [address] 07/03/2023 10:26:52 07/03/2023 11:43:33 Overactive urinary bladder 893303527 N32.81 Nausea 786988089 R11.0 Anemia 515350796 D64.9 Depressive disorder 3548 9007 F32.A Anxiety 01806177 F41.9 Arthritis 4343452 M19.90 Attention deficit hyperactivity disorder 766830202 F90.9 Essential hypertension 94004844 I10 Hypothyroidism 60408054 E03.9 Mixed anxi ety and depressive disorder 412429754 F41.8 Serum ari min B12 below reference range 557481107 R79.89 Sleep apnea 72014040 G47 .30 [id number] Demetrius Brito MD [facility] [address] [facility] [place] [address] 09/26/2023 10:47:26 09/26/2023 11:33:17 Dysphagia 94768004 R13.10 Tardive dyskinesia 20654 9007 G24.01 Bilateral tendonitis of wrists 2972286815 0150231 M67.833 M67.834 Anemia 019102347 D64.9 Anxiety 59139219 F41.9 Arthritis 3377096 M19.90 Attention deficit hyperactivity disorder 326294611 F90.9 Depressive disorder 3548 9007 F32.A Essential hypertension 84934750 I10 High hemog lobin A1c level 585899161 R73.09 Hyperlipidemia 42556784 E78.5 Hypothyroidism 44802934 E03.9 Irritable bowel syndrome characterized by constipation 212919988 K58.1 Sleep apnea 28233675 G47 .30 [id number] Jerod Hernandez MD [facility] [address] [place] [address] 11/28/2023 14:49:38 11/30/2023 08:32:10 Obstructive sleep apnea syndrome 62419205 G47.33 G47.36 G47.61 Periodic l imb movement disorder 776338166 G47.61 D50.8 E83.42 [id number] Jerod Hernandez MD [facility] [place] [address] [place] [address] [address] [place] [address] 12/19/2023 13:51:03 12/19/2023 16:52:51 Obstructive sleep apnea syndrome 04861163 G47.33 G47.36 G47.61 Iron deficiency 50913939 E61.1 Cobalamin deficiency 190 745345 E53.8 [id number] Demetrius Brito MD [facility] [place] [address] [place] [address] [place] [address] 12/19/2023 15:04:47 12/31/2023 11:41:26 Pre-surgery testing [id number] Z01.89 [id number] Demetrius Brito MD [facility] [place] [address] [place] [address] [place] [address] 01/09/2024 11:56:59 01/09/2024 12:50:45 Adult health examination [id number] Z00.00 Screening for disorder 694210798 Z13.9 Screening mammography 24 501620 Z12.31 Renewal of prescription 068275113 Z76.0 Anemia 385293877 D64.9 Arthritis 6462556 M19.90 Attention deficit hyperactivity disorder 044166826 F90.9 Bilateral carpal tunnel syndrome 6480253270 2738036 G56.03 Cobalamin deficiency 190 290803 E53.8 High hemog lobin A1c level 695144865 R73.09 Hyperlipidemia 25673375 E78.5 Hypothyroidism 72171702 E03.9 Iron deficiency 66117255 E61.1 Irritable bowel syndrome characterized by constipation 831324957 K58.1 Mixed anxi ety and depressive disorder 303646960 F41.8 Periodic l imb movement disorder 361825610 G47.61 D50.8 E83.42 Serum ari min B12 below reference range 186543866 R79.89 Seborrheic dermatitis of scalp 408830917 L21.0 [id number] Jerod Hernandez MD [address] [address] 01/30/2024 08:33:45 01/30/2024 15:24:58 Obstructive sleep apnea syndrome 83900563 G47.33 Iron deficiency 64590038 E61.1 Cobalamin deficiency 190 771437 E53.8 [id number] Jerod Hernandez MD [address] [address] 05/07/2024 11:29:42 05/07/2024 12:29:47 Obstructive sleep apnea syndrome 76006295 G47.33 Iron deficiency 66283242 E61.1 Cobalamin deficiency 190 780921 E53.8 [id number] Jerod Hernandez MD [address] [address] 07/17/2024 09:52:55 07/17/2024 12:19:26 Obstructive sleep apnea syndrome 85460940 G47.33 Iron deficiency 21243794 E61.1 Cobalamin deficiency 190 560147 E53.8 [id number] Demetrius Brito MD [address] [address] 07/24/2024 11:06:26 07/24/2024 11:41:09 Pain of left hand 8044430910 47496 M79.642 Strain of thumb tendon 444597187 S66.912A History of decompression of median nerve 717813782 Z98.890 B/l CTS Tardive dyskinesia 79941 9007 G24.01 Cont f/u with specialist in [facility] as per schedule. [id number] Demetrius Brito MD [address] [address] 08/13/2024 14:20:22 08/13/2024 15:04:38 Pain of left hand 9368339615 03942 M79.642 Strain of thumb tendon 534553867 S66.912A History of decompression of median nerve 694172931 Z98.890 B/l CTS Tardive dyskinesia 07718 9007 G24.01 Cont f/u with specialist in [facility] as per schedule. [id number] Jerod Hernandez MD [facility] [address] [address] 10/14/2024 08:48:08 10/15/2024 09:05:57 Obstructive sleep apnea syndrome 04783969 G47.33 Iron deficiency 53921261 E61.1 Cobalamin deficiency 190 878510 E53.8 Health Concerns Section Related Observation LastModified by Organization Detai ls LastModified Time None Recorded Concern Status LastModified by Organization Details LastModified Time None Recorded Advance Directives Directive None Recorded Payers Insurance Date Sequence Insurance Name Policy Number Policy Hussein Covered Member ID Hussein Member ID Guarantor Name 10/13/2024 1 [facility] (MEDICARE REPLACEMENT/A DVANTAGE - HMO) [id number] Lisa Tapia [id number] Lisa Tapia Notes Date Note Type Note Provider Name and Address Organization Details Recorded Time 05/07/2024 text/html Primary care/Ref erring provider: RONEN Sebastian During the [place] split night sleep study on 02/21/06, sleep onset = immediate, REM onset = none, AHI = 91, ResMed small full face mask was applied @ 12 cmH2O. During the [facility] split night sleep study on 01/28/24, sleep [...] slight chance of dozing. Jerod Hernandez MD [address] [place] [address], [facility], [place], [address], [place] - [facility] [employer] [facility] 05/07/2024 12:26:17 07/17/2024 text/html Primary care/Ref erring provider: RONEN Sebastian CC: I keep forgetting to take the second dose of my FeSo4 + Vit C. During the [place] split night sleep study on 02/21/06, sleep onset = immediate, REM onset = none, AHI = 91, ResMed small full face mask was applied @ 12 cmH2O. During the [facility] split night sleep study on 01/28/24, sleep [...] moderate chance of dozing. Jerod Hernandez MD [address] [place] [address], [place] [address], [place], [address], [facility] [employer] 07/17/2024 10:33:11 07/24/2024 text/html ACV: C/o Lt [...] other area pain. Demetrius Brito MD [address], [address], [place], [address], [employer] 07/24/2024 11:38:08 08/13/2024 text/html Pt is here [...] other area pain. Demetrius Brito MD [address], [facility], [place], [address], [employer] 08/13/2024 14:51:02 10/14/2024 text/html Primary care/Ref erring provider: RONEN Sebastian During the [place] split night sleep study on 02/21/06, sleep onset = immediate, REM onset = none, AHI = 91, ResMed small full face mask was applied @ 12 cmH2O. During the [facility] split night sleep study on 01/28/24, sleep onset = 15.5 minutes, REM onset = 312 minutes, AHI = 61, supine AHI = 65, PLMI= 7. PLMI = 7 and she is on iron and B12 supplements. At home since 07/17/24, the patient uses a ResMed AirSense 11 [...] in the afternoon when circumstances permit - 2Sitting and talking to someone - 0Sitting quietly after lunch without alcohol - 2In a car, while stopped for a few minutes in the traffic - 1TOTAL SCORE 10Subjectively, patient has a moderate chance of dozing. Jerod Hernandez MD [address] [facility], [facility], [place], [address], [facility] 10/14/2024 09:25:07 OBGyn Episode No OBEpisode recorded.
--- OUTSIDE RECORDS SUMMARY | 2024-11-17 16:11 | XMS_ITS | Referral Summary ---
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
[2024-11-17 16:16] VITALS: BP 136/96; PULSE 70; RESP 18; TEMP 36.7; O2SAT 100
[2024-11-17 16:29] VITALS: BP 122/75; PULSE 70; RESP 20; O2SAT 100
--- NOTE | 2024-11-17 17:56 | ED.LOWEXIN ---
HPI - Extremity Injury (Lower) General Chief Complaint: Extremity Injury, Lower Stated Complaint: possible blood clot Time Seen by Provider: 11/17/24 17:44 History of Present Illness HPI Narrative: 69-year-old female presenting to the emergency department for evaluation of right leg pain. She knows that she has a small area of pain and swelling to the right lateral aspect upper lower extremity and she thinks she may have banged on something over last few days. Knows that moves with palpation. She is concerned about a blood clot as she has a family history of DVT but no personal history. No recent surgical procedures or hormone replacement therapy. Low Wells criteria for DVT. No other symptoms and otherwise was in her normal state of health. No systemic features. Pain localized and reproducible palpation. Related Data Home Medications ?Medication ?Instructions ?Recorded ?Confirmed ?Last Taken ?Type amlodipine 5 mg tablet 5 mg PO DAILY 08/27/24 08/27/24 Unknown History ferrous sulfate 27 mg iron tablet 27 mg PO DAILY 08/27/24 08/27/24 Unknown History pantoprazole 40 mg tablet,delayed 40 mg PO QAM 08/27/24 08/27/24 Unknown History release semaglutide 2 mg/dose (8 mg/3 mL) 2 mg subcut WEEKLY 08/27/24 08/27/24 Unknown History subcutaneous pen injector venlafaxine 150 mg 300 mg PO DAILY 08/27/24 08/27/24 Unknown History capsule,extended release 24 hr vitamin [id number]-agaobhx B1 1,000 ml IM 08/27/24 08/27/24 Unknown History mcg-100 mg/mL injection solution Allergies Allergy/AdvReac Type Severity Reaction Status Date / Time Sulfa (Sulfonamide Allergy Severe hives Unverified 08/27/24 11:05 Antibiotics) Review of Systems Review of Systems: As reviewed [facility] Past Medical History Medical History Thyroid disorder Anxiety Anemia Surgical History Surgical History Hx of gastric bypass History of carpal tunnel release Hx of cholecystectomy H/O: hysterectomy H/O knee surgery Family History Family History Mother Depression Hypertension Thyroid disease Sibling Hypertension Thyroid disease Grandparent Alcoholism Social History Social History Social History: 08/20/24 very confident with medical forms Smoking status: Never smoker Alcohol intake: never Substance use: never Do You Feel Safe in your Home?: Yes Lack of Transportation: No Lack of Food: Never True Current Housing: I Have Housing Concerned About Future Housing: No Difficulty Paying Gas/Electric Bills: No Difficulty Paying for Meds: No Currently Unemployed: No Education: High School Diploma/GED Difficulty w/ Childcare or Family Care: No Occupation/Education: retired Gender identity (if verbalized by the patient): Female Sexual Orientation (if Verbalized by the Patient): Straight or Heterosexual Spiritual care concerns: No Agree to blood products: Yes Exam Narrative: GENERAL: [Well-appearing, well-nourished, and in no acute distress.] HEAD: [Normocephalic, atraumatic.] EYES: [PERRLA and EOMI.] ENT: Nares clear, no rhinorrhea or epistaxis. Mucous membranes moist. NECK: Supple. CHEST: [Clear to auscultation. No respiratory distress.] HEART: [Regular rate and rhythm]. No murmur heard. [Normal peripheral pulses.] ABDOMEN: [Soft, nondistended], [nontender], [No rigidity or guarding] EXTREMITIES: palpable area approximately 1 x 1 cm to the right lateral soft tissues of the lower leg that is very mobile and actually deforms with direct pressure in feels like a potential blister or mobile lipoma SKIN: Warm, dry, no rash. NEURO: [No focal deficits]. Alert and oriented [x3.] PSYCH: [Normal mood and affect.] Course Vital Signs Vital signs: Vital Signs Temperature 36.7 C 11/17/24 16:16 Pulse Rate 70 11/17/24 16:16 Respiratory Rate 18 11/17/24 16:16 Blood Pressure 136/96 H 11/17/24 16:16 Pulse Oximetry 100 11/17/24 16:16 Oxygen Delivery Room Air 11/17/24 16:16 Temperature 36.7 C 11/17/24 16:16 Pulse Rate 70 11/17/24 16:29 Respiratory Rate 20 11/17/24 16:29 Blood Pressure 122/75 11/17/24 16:29 Pulse Oximetry 100 11/17/24 16:29 Oxygen Delivery Room Air 11/17/24 16:29 MDM - Extremity Injury (Lower) MDM Narrative Medical decision making narrative: 69-year-old female presenting to the emergency department for evaluation of right leg pain. She knows that she has a small area of pain and swelling to the right lateral aspect upper lower extremity and she thinks she may have banged on something over last few days. Knows that moves with palpation. She is concerned about a blood clot as she has a family history of DVT but no personal history. No recent surgical procedures or hormone replacement therapy. Low Wells criteria for DVT. No other symptoms and otherwise was in her normal state of health. No systemic features. Pain localized and reproducible palpation. Examination reveals a palpable area approximately 1 x 1 cm to the right lateral soft tissues of the lower leg that is very mobile and actually deforms with direct pressure in feels like a potential blister or mobile lipoma. Patient is concerned about DVT so Doppler ultrasound of the leg was ordered as well as a soft tissue ultrasound. More reassured the not that this is a benign etiology that this not require any medications aside from watchful waiting and maybe anti-inflammatories if it is painful. Ultrasound reviewed and report shows subcutaneous edema consistent with clinical exam but no signs of blood clot or DVT. Patient's symptoms likely secondary to localize trauma and she is safe for discharge home at this time. Patient's questions were answered and she was discharged home with instructions for anti-inflammatory and pain control medications. Medical Records Attestation: I reviewed the patient's medical records. Imaging Data Attestation: I personally reviewed and interpreted this imaging study as follows: My impression: Impressions Venous Doppler Study 11/17/24 18:51 IMPRESSION: Patent right lower extremity veins. No evidence of deep venous thrombosis. Soft Tissue Ultrasound 11/17/24 18:52 IMPRESSION: Subcutaneous edema detected in the area of clinical concern. Discharge Plan Discharge Clinical Impression: Contusion of soft tissue Patient Disposition: Home Condition: Stable Instructions: Antibiotic Form, Contusion in Adults (ED) Additional Instructions: No signs of a blood clot, you do have some mild soft tissue edema in the area likely from a direct contusion. No signs of any concern. Take Tylenol or ibuprofen for aches or pains. Follow-up with your doctors. Patient Language: British Prescriptions: No Action amlodipine 5 mg tablet 5 mg PO DAILY pantoprazole 40 mg tablet,delayed release (DR/EC) 40 mg PO QAM vitamin F77-ymgmcxb B1 1,000-100 mg/mL solution IM ferrous sulfate 27 mg iron tablet 27 mg PO DAILY semaglutide 2 mg/dose (8 mg/3 mL) pen injector 2 mg subcut WEEKLY venlafaxine 150 mg capsule,extended release 24hr 300 mg PO DAILY benazepril-hydrochlorothiazide 20-12.5 mg tablet 1 tablet PO DAILY Qty: 90 1RF levothyroxine [Synthroid] 150 mcg tablet 150 mcg PO DAILY Qty: 90 0RF Follow-up/Referrals: Cindy Nichols APRN [Primary Care Provider] - Time of Disposition: 19:10
--- OUTSIDE RECORDS SUMMARY | 2024-11-17 18:57 | XMS_ITS | Clinical Summary ---
Author Organization [facility] Address [address] [place] [address] Care Team Providers Care Cosmetic Sales Consultant Name Role Phone Unavailable Primary Care Provider [...] - 2023-2 5 season) 2024 PHQ-2 (Physician [place]) 05/21/2024 RSV Immunization or 60+ Years (1 [...] patient's age to complete this topic Insurance [facility]
--- OUTSIDE RECORDS SUMMARY | 2024-11-17 18:57 | XMS_ITS | Encounter Summary ---
Author Organization [facility] Address [address] [place] [address] Care Team Providers Care Cable Ferry Operator Name Role Phone Kevin Manzanares MD Unavailable Emely Santoyo MD Primary Care Provider [phone] Irvin Ponce Primary Care Provider + [facility] Primary Care Provider Reason for Visit * Reason Onset Date Comments Medication Issue 05/30/2023 Encounter Details Date Type Department Care Team (Late st Contact Info) Description 05/30/2023 Telephone [facility] [address] [facility] [address] [place] [address] Se Chua MD [address] [place] [address] Medication Issue Social History Tobacco [...] on file 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 But can not remember what. The notes say she has tried myrbetriq in the past. Per patient - [facility] suggested oxybutynin , vesicare or myrbetriq. I will check with - see what he is wanting to change to and let her know. Patient is agreeable. ATION CAMERA OPERATOR * Telephone Encounter - Kody Sanders - [...] said the Gemtesa is working perfectly. CB: [phone] Thanks. ATION CAMERA OPERATOR documented in this encounter Plan of Treatment Upcoming Encounters Date Type Department Care Team (Late st Contact Info) Description 03/02/2025 10:00 AM CDT Office Visit [facility] - [address] [address] [address] [place] [address] [address] documented as of this encounter Visit Diagnoses Not on filedocumented in this encounter Care Teams Cable Ferry Operator Relationship Specialty Start Date End Date Emely Santoyo MD [address] [place] [address] [address] [place] [address] PCP - General Family Medicine 01/09/17 12/10/23 Irvin Ponce PA [address] [place] [address] PCP - General Physician Pipe Fitter Apprentice 12/11/23 09/17/24 Cindy Nichols APRN-COATING MACHINE HELPER [address] [place] [address] PCP - General Nurse Practitioner Family 09/18/24 [place] [address] [address] Cardiovascular Disease 04/30/12 documented as of this encounter
--- OUTSIDE RECORDS SUMMARY | 2024-11-17 18:57 | XMS_ITS | Referral Summary ---
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 Gender Identity Not on file Sexual Orientation [...] Plan of Treatment Not on file Insurance [facility] MEDICARE ADVANTAGE [facility] Address: [address] [address] [facility] MEDICARE ADVANTAGE [facility] Address: [address] [address] [place] [address] Care Teams Steeler Relationship Specialty Start Date End Date Emely Santoyo MD [address] [place] [address] [place] [address] PCP - General Family Medicine 05/04/20
--- OUTSIDE RECORDS SUMMARY | 2024-11-17 18:57 | XMS_ITS | Clinical Summary ---
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
--- OUTSIDE RECORDS SUMMARY | 2024-11-17 18:57 | XMS_ITS | Clinical Summary ---
Author Organization [facility] Address [address] [facility] [place] [address] Care Team Providers Care Alto Singer Name Role Phone Kevin Manzanares MD Unavailable Cindy Nichols APRN-CLINICAL LEADER Primary Care Provider Source Comments [facility],non-owned Affiliates and Associated Physician Practices is amultiple site organization consisting of ambulatory clinics and hospital sitesin [place], [place], [place] and [place]. This disclosure is being madepursuant to the Care Everywhere program and may not contain all information available regarding this patient. Last updated 18.[facility] Allergies Active Allergy Reactions Criticality Noted Date [...] food Active vitamin D, ergocalciferol , (DRISDOL) 80583 UNITS capsule Take 1 capsule by mouth [...] Description 09/18/2024 9:42 AM CDT Anesthesia Event [facility] [address] [place] [address] Salbador Bryan DO Hughes, Riley 09/18/2024 9:00 AM CDT - 09/18/2024 9:30 AM CDT Surgery [facility] [address] [place] [address] Hong Bledsoe MD ESOPHAGOGASTRODUODENOSCOPY (EGD) DIAGNOSTIC 09/18/2024 7:46 AM CDT - 09/18/2024 10:40 AM CDT Hospital Encounter [facility] [address] [place] [address] Hong Bledsoe MD Surgery General Discharge Disposition: Home or Self Care 09/18/2024 Travel 09/09/2024 [place] [facility] 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 Gender Identity Not on file Sexual Orientation [...] Description 03/02/2025 10:00 AM CDT Office Visit [facility] [place] [address] Pieter Khan, [facility] [address] [place] [address] [place] [address] [facility] [address] [place] [address] Health Maintenance Due Date Last [...] Procedure Name Priority Date/Time Associated Diagnosis Comments [place] ED EGD FLEX TRANSORAL DX 09/18/2024 9:00 [...] Gender: Female Attending MD: Hong Bledsoe MD, [id number] _ Procedure: Upper GI endoscopy Indications: Abdominal [...] by the physician, the nurse and the process tank tender. The procedure was verified in the procedure [...] by moderate stenosis. This was traversed. The djmju-xt-lqcsgcs limb was characterized by moderate stenosis. The jejunojejunal anastomosis was characterized by healthy appearing mucosa. The sccxnrie-ac-enpionk limb was not examined as it could [...] as needed. Procedure Code(s): --- Professional --- 31303, Esophagogastroduoden oscopy, flexible, transoral; with dilation of gastric/duodenal stricture(s) (eg, balloon, bougie) --- Technical --- 17345, Esophagogastroduoden oscopy, flexible, transoral; with dilation of gastric/duodenal stricture(s) (eg, balloon, bougie) Diagnosis Code(s): --- Professional --- Z98.0, Intestinal bypass and anastomosis status R10.9, Unspecified abdominal pain K91.89, Other postprocedural complications and disorders of digestive system --- Technical --- Z98.0, Intestinal bypass and anastomosis status R10.9, Unspecified abdominal pain K91.89, Other postprocedural complications and disorders of digestive system CPT copyright 2020 [employer]. All rights reserved. The codes documented in this report are preliminary and upon fruit thinner machine operator review may be revised to meet current compliance requirements. Hong Bledsoe MD 09/18/2024 10:14:52 AM This report has been signed electronically. Number of Addenda: 0 Note Initiated On: 09/18/2024 8:12 AM [facility] 09/18/2024 8:12 AM CDT us Adrianna Batista APRN-CLINICAL LEADER GI PROCEDURE ORDERABLE S Edited Result - Final [facility] [place] [address] * Endoscopy, Colon, Diagnostic (02/20/2024 9:22 AM CDT) Report Endoscopy POC _ Patient Name: Lisa Tapia Procedure Date: 02/20/2024 9:22 AM Date of : 1955 Admit Type: Outpatient Age: 69 Gender: Female Attending MD: Hong Bledsoe MD, [id number] _ Procedure: Colonoscopy Indications: Positive Septin-9 assay [...] by the physician, the nurse and the process tank tender in the procedure room. Mental Status Examination: [...] 6 months. Procedure Code(s): --- Professional --- 66892, Colonoscopy, flexible; diagnostic, including collection of specimen(s) by brushing or washing, when performed (separate procedure) --- Technical --- 94587, Colonoscopy, flexible; diagnostic, including collection of specimen(s) by brushing or washing, when performed (separate procedure) Diagnosis Code(s): --- Professional --- K64.0, First degree hemorrhoids R79.9, Abnormal finding of blood chemistry, unspecified --- Technical --- K64.0, First degree hemorrhoids R79.9, Abnormal finding of blood chemistry, unspecified CPT copyright 2020 [employer]. All rights reserved. The codes documented in this report are preliminary and upon fruit thinner machine operator review may be revised to meet current compliance requirements. Hong Bledsoe MD 02/20/2024 11:17:07 AM This report has been signed electronically. Number of Addenda: 0 Note Initiated On: 02/20/2024 9:22 AM [facility] 02/20/2024 9:22 AM CDT Hong Bledsoe MD GI PROCEDURE ORDERABLES Edited Result - Final Performing Organization Address City/[facility] Co de Phone Number [facility] [place] [address] * (ABNORMAL) BASIC METABOLIC PANEL (CALCIUM TOTAL) (08/21/2008 2:20 AM CDT) BUN 14 7.0 - 17.0 mg/dl [facility] Sodium 134(L) 137 - 145 mEq/L [facility] Potassium 3.6 3.6 - 5.0 mEq/L [facility] Chloride 100 98.0 - 107.0 mEq/L [facility] CO2 26 22.0 - 30.0 mEq/L [facility] Anion Gap 7.8 [facility] Glucose 101 75 - 110 mg/dl [facility] Creatinine 0.8 0.7 - 1.2 mg/dl [facility] Calcium 8.6 8.4 - 10.2 mg/dl [facility] eGFR by MDRD 79.2 ml/min/1.7 3m2 [facility] BLOOD SPECIMEN / Unknown 08/21/2008 2:20 AM CDT Norm Ramon MD LAB - CHEMISTRY ORDERABLES Final Result Performing Organization Address [facility] Co de Phone Number [facility] [address] [place] [address] * (ABNORMAL) LIPID PROFILE (07/29/2008 5:34 PM CDT) Cholesterol 229(H) 120.0 - 200.0 mg/dl [facility] Triglycerides 184 0.0 - 250.0 mg/dl [facility] HDL Cholesterol 45 >40 mg/dl [facility] LDL Calculated 147.2 mg/dl [facility] Chol HDL Ratio 5.1 [facility] Comment Lipid [facility] Comment: Risk Classification HDL CHOL LDL CHOL TOTAL CHOL According to NCEP (mg/dl) (mg/dL) (mg/dl) Desirable >40 <130 < 200 Borderline/High - 130-159 200-239 High - >159 > 239 The total cholesterol to HDL cholesterol ratio may be used to predict risk for coronary heart disease in untreated patients according to data reported from the [place] Study by Ayad Coulter M.D. The predictive [...] HOSPITAL - 07/29/2008 6:07 PM CDT FAX [phone] us Norm Ramon MD LAB - CHEMISTRY ORDERABLES Final Result [facility] [address] [place] [address] from Last 3 Months or Most Recently Relevant to Health Maintenance Insurance [facility] MANAGED MEDICARE ADV Care Teams Alto Singer Relationship Specialty Start Date End Date Cindy Nichols APRN-CLINICAL LEADER [address] [place] [phone] PCP - General Nurse Practitioner Family 09/18/24 [place] [id number] [address] Cardiovascular Disease 04/30/12
== END 2024-11-17 19:22 | disposition home or self-care (01) ==
PROVIDERS: Emergency Provider Student in an Organized Health Care Education/Training Program; PCP Nurse Practitioner Family
DX: S80.11XA Contusion of right lower leg, initial encounter (principal); X58.XXXA Exposure to other specified factors, initial encounter
CPT/HCPCS: 76882; 93971; 99284

== ENCOUNTER 2025-02-19 13:08 | Outpatient (CLI) | payer MEDICARE, SELFPAY ==
--- NOTE | ~2025-02-19 | MM_ITS ---
EXAMINATION: MM screening [facility] BI w андрей HISTORY: Screening TECHNIQUE: Craniocaudal and mediolateral oblique 3-D tomosynthesis images were obtained and synthetic 2-D images were generated. CAD analysis was submitted and interpreted. COMPARISON: Comparison to multiple prior studies sequentially, with oldest reviewed study dated 07/04/2019. BREAST PARENCHYMAL COMPOSITION: Dense: The breasts are heterogeneously dense, which may obscure small masses FINDINGS: There is no evidence of suspicious mass, calcification, or architectural distortion to suggest malignancy in either breast. There has been no suspicious interval change. IMPRESSION: 1. No mammographic evidence of malignancy. 2. Recommend routine screening mammography in one year. BI-RADS Category 1: Negative Reviewed, dictated and finalized at location B.
--- OUTSIDE RECORDS SUMMARY | 2025-02-19 13:12 | XMS_ITS | Clinical Summary ---
Author Organization [facility] Address [address] [place] [address] Care Team Providers Care Orderlies Teacher Name Role Phone Kevin Manzanares MD Unavailable Cindy Nichols APRN-DEPUTY CHIEF EXECUTIVE Primary Care Provider Source Comments [facility],non-owned Affiliates and Associated Physician Practices is amultiple site organization consisting of ambulatory clinics and hospital sitesin [place], [place], [place] and [place]. This disclosure is being madepursuant to the Care Everywhere program and may not contain all information available regarding this patient. 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 Gender Identity Not on file Sexual Orientation [...] Description 03/02/2025 10:00 AM CDT Office Visit [facility] [place] [address] [place] [address] [place] [address] [address] [place] [address] Health Maintenance Due Date Last [...] 08/24/2022 9, 08/20/2008, 08/20/2008, Additional history exists DEPRESSION SCREENING 05/21/2024 05/07/2023 MEDICARE AW CALENDAR YEAR 2024 COVID-19 VACCINE ( season) 2025 INFLUENZA VACCINE (#1) 2025 3, 03/20/2022, 03/21/2019, Additional history exists DTAP/TDAP/TD VACCINES [...] Gender: Female Attending MD: Hong Bledsoe MD, [id number] _ Procedure: Colonoscopy Indications: Positive Septin-9 assay [...] by the physician, the nurse and the human performance consultant in the procedure room. Mental Status Examination: [...] 6 months. Procedure Code(s): --- Professional --- 07771, Colonoscopy, flexible; diagnostic, including collection of specimen(s) by brushing or washing, when performed (separate procedure) --- Technical --- 90970, Colonoscopy, flexible; diagnostic, including collection of specimen(s) by brushing or washing, when performed (separate procedure) Diagnosis Code(s): --- Professional --- K64.0, First degree hemorrhoids R79.9, Abnormal finding of blood chemistry, unspecified --- Technical --- K64.0, First degree hemorrhoids R79.9, Abnormal finding of blood chemistry, unspecified CPT copyright 2020 [employer]. All rights reserved. The codes documented in this report are preliminary and upon continuous improvement analyst review may be revised to meet current compliance requirements. Hong Bledsoe MD 02/20/2024 11:17:07 AM This report has been signed electronically. Number of Addenda: 0 Note Initiated On: 02/20/2024 9:22 AM [facility] 02/20/2024 9:22 AM CDT Hong Bledsoe MD GI PROCEDURE ORDERABLES Edited Result - Final [facility] [place] [address] * (ABNORMAL) BASIC METABOLIC PANEL (CALCIUM TOTAL) (08/21/2008 2:20 AM CDT) BUN 14 7.0 - 17.0 mg/dl [facility] Sodium 134(L) 137 - 145 mEq/L [facility] Potassium 3.6 3.6 - 5.0 mEq/L [facility] Chloride 100 98.0 - 107.0 mEq/L [facility] CO2 26 22.0 - 30.0 mEq/L [facility] Anion Gap 7.8 [facility] Glucose 101 75 - 110 mg/dl [facility] Creatinine 0.8 0.7 - 1.2 mg/dl [facility] Calcium 8.6 8.4 - 10.2 mg/dl [facility] eGFR by MDRD 79.2 ml/min/1.7 3m2 [facility] BLOOD SPECIMEN / Unknown 08/21/2008 2:20 AM CDT Norm Ramon MD LAB - CHEMISTRY ORDERABLES Final Result [facility] [address] [place] [address] * (ABNORMAL) LIPID PROFILE (07/29/2008 5:34 PM CDT) Cholesterol 229(H) 120.0 - 200.0 mg/dl [facility] Triglycerides 184 0.0 - 250.0 mg/dl [facility] HDL Cholesterol 45 >40 mg/dl [facility] LDL Calculated 147.2 mg/dl [facility] Chol HDL Ratio 5.1 [facility] Comment Lipid [facility] Comment: Risk Classification HDL CHOL LDL CHOL TOTAL CHOL According to NCEP (mg/dl) (mg/dL) (mg/dl) Desirable >40 <130 < 200 Borderline/High - 130-159 200-239 High - >159 > 239 The total cholesterol to HDL cholesterol ratio may be used to predict risk for coronary heart disease in untreated patients according to data reported from the [place] Study by Ayad Coulter M.D. The predictive [...] / Unknown 07/29/2008 5:34 PM CDT Narrative [facility] - 07/29/2008 6:07 PM CDT FAX [phone] Norm Ramon MD LAB - CHEMISTRY ORDERABLES Final Result [facility] [address] [place] [address] from Last 3 Months or Most Recently Relevant to Health Maintenance Insurance [facility] MANAGED MEDICARE ADV [facility] MANAGED MEDICARE ADV Care Teams Orderlies Teacher Relationship Specialty Start Date End Date Cindy Nichols, HOUSEKEEPER/CUSTODIAN/LAUNDRY WORKER-DEPUTY CHIEF EXECUTIVE [address] [place] [address] PCP - General Nurse Practitioner Family 09/18/24 [place] [address] [facility] [address] [place] [address] Cardiovascular Disease 04/30/12
--- OUTSIDE RECORDS SUMMARY | 2025-02-19 13:12 | XMS_ITS | Encounter Summary ---
Author Organization [facility] Address [address] [facility] [address] Care Team Providers Care Donor Services Manager Name Role Phone Kevin Manzanares MD Unavailable Emely Santoyo MD Primary Care Provider [phone] Irvin Ponce Primary Care Provider + [facility] Primary Care Provider Reason for Visit * Reason Onset Date Comments Medication Issue 05/30/2023 Encounter Details Date Type Department Care Team (Late st Contact Info) Description 05/30/2023 Telephone [facility] - SENIOR MEDICAL DIRECTOR [address] [facility] [address] [place] [address] Se Chua MD [address] [place] [address] Medication Issue Social History Tobacco [...] on file 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 But can not remember what. The notes say she has tried myrbetriq in the past. Per patient - [facility] suggested oxybutynin , vesicare or myrbetriq. I will check with - see what he is wanting to change to and let her know. Patient is agreeable. OPERATIVE MANAGER * Telephone Encounter - Kody Sanders - [...] said the Gemtesa is working perfectly. CB: [phone] Thanks. OPERATIVE MANAGER documented in this encounter Plan of Treatment Upcoming Encounters Date Type Department Care Team (Late st Contact Info) Description 03/02/2025 10:00 AM CDT Office Visit [facility] - [address] [address] [address] [place] [address] [address] documented as of this encounter Visit Diagnoses Not on filedocumented in this encounter Care Teams Donor Services Manager Relationship Specialty Start Date End Date Emely Santoyo MD [address] [place] [address] [address] [place] [address] PCP - General Family Medicine 01/09/17 12/10/23 Irvin Ponce PA [address] [place] [address] PCP - General Physician Jigman 12/11/23 09/17/24 Cindy Nichols APRN-COOKING CHEF [address] [place] [address] PCP - General Nurse Practitioner Family 09/18/24 [place] [address] [address] Cardiovascular Disease 04/30/12 documented as of this encounter
--- OUTSIDE RECORDS SUMMARY | 2025-02-19 13:12 | XMS_ITS | Clinical Summary ---
Author Organization [facility] Address [facility] [place] [address] Care Team Providers Care Process Architect Name Role Phone Unavailable Primary Care Provider [...] Wellness Visit 2018 Dexa Scan (General) 2018 PHQ-2 (Physician Kaw) 05/21/2024 COVID-19 Vaccine (1 - 2023-2 5 season) 2025 Influenza Adult (#1) 2025 RSV Immunization or 60+ Years (1 - [...] to complete this topic Insurance [facility] MED[facility]
--- OUTSIDE RECORDS SUMMARY | 2025-02-19 13:12 | XMS_ITS | Clinical Summary ---
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 Gender Identity Not on file Sexual [...] Screening-Bone Density Scan 02/11/2024 02/10/2022 Influenza Vaccine (#1) 2025 9, 03/08/2019, 02/18/2018 DTaP/Tdap/Td Vaccine (2 - Td or Tdap) 12/07/2029 Pneumococcal vaccine 65+ Completed 019, 02/18/2019, 02/18/2018 Zoster Vaccine Completed 04/17/2020, 01/16/2020 Insurance [facility] ADVANTAGE [facility] Address: [facility] [address] [place] [address] [facility] Address: [address] [address] [place] [address] Care Teams Construction Helper Relationship Specialty Start Date End Date Emely Santoyo MD [facility] [place] [address] PCP - General Family Medicine 05/04/20
--- OUTSIDE RECORDS SUMMARY | 2025-02-19 13:12 | XMS_ITS | Patient Health Record ---
Author Organization [facility] Address [address] [place] [address] Care Team Providers Care Stocking And Box Shop Supervisor Name Role Phone Rodney Adrian Unavailable [phone] Reason For Referral No Information Medications Medication SIG (Take, Route, Frequency, Duration) Notes Start Date End Date Status Venlafaxine HCl ER 150 MG Capsule Extended Release 24 Hour Oral 10/06/2020 Active chlordiazePOXIDE HCl 5 MG Capsule Oral 10/06/2020 Active Levothyroxine Sodium 137 MCG Tablet Oral 10/06/2020 Active Escitalopram Oxalate 20 MG Tablet Oral 10/06/2020 Active Gabapentin 300 MG Capsule Oral 10/06/2020 Active Venlafaxine HCl ER 75 MG Capsule Extended Release 24 Hour Oral 10/06/2020 Active Fluconazole 150 MG Tablet Oral 10/06/2020 Active VITAMIN E 268 MG (400 UNIT) CAPSULE *Reorder from [employer] for eRx and Interaction Alerts* 10/06/2020 Active Cyanocobalamin 1000 MCG/ML Solution Injection 10/06/2020 Active Amoxicillin-Pot Clavulanate 875-125 MG Tablet Oral 10/06/2020 Active BOOSTRIX TDAP 2.5-8-5 Lf-mcg-Lf/0.5mL Suspension Intramuscular *Reorder from [employer] for eRx and Interaction Alerts* 10/06/2020 Active Fluzone High-Dose Quadrivalent 0.7 ML Suspension Prefilled Syringe Intramuscular *Reorder from [employer] for eRx and Interaction Alerts* 10/06/2020 Active Omeprazole 20 MG Capsule Delayed Release Oral 10/06/2020 Active Benazepril-hydroCHLORO thiazide 20-12.5 MG Tablet Oral 10/06/2020 Active Shingrix 50 mcg/0.5 mL Suspension Reconstituted Intramuscular 10/06/2020 Active Alto Pass Carbonate 300 MG Capsule Oral 10/06/2020 Active Insulin Syringe 1 mL 25 x 1 SYRINGE, EMPTY DISPOSABLE MISCELLANEOUS 10/06/2020 Active CLONAZEPAM 1 MG TABS *Reorder fr [facility] for eRx and Interaction Alerts* 10/06/2020 Active DULoxetine HCl 30 MG Capsule Delayed Release Particles Oral 10/06/2020 Active Escitalopram Oxalate 5 MG Tablet Oral 10/06/2020 Active chlordiazePOXIDE HCl 10 MG Capsule Oral 10/06/2020 Active amLODIPine Besylate 5 MG Tablet Oral 10/06/2020 Active hydrOXYzine HCl 25 MG Tablet Oral 10/06/2020 Active FLUZONE HIGH-DOSE QUAD (PF) 240 MCG/0.7 ML IM SYRINGE *Reorder from [facility] for eRx and Interaction Alerts* 10/06/2020 Active Ergocalciferol 1.25 MG ([address]391 [place]) Capsule Oral 10/06/2020 Active Immunizations Vaccine Route Administration Date Status Comme nts Influenza virus vaccine, quadrivalent (IIV4), split virus, 0.25 mL dosage Unknown 03/21/2019 Administered Influenza, high dose seasonal Unknown 02/18/2018 Admini stered Influenza, high dose seasonal Unknown 03/08/2019 Admini stered Pneumococcal conjugate PCV 13 Unknown 02/18/2018 Admini stered Pneumococcal polysaccharide PPV23 Unknown 02/18/2019 Ad ministered Pneumococcal polysaccharide PPV23 Unknown 03/04/2019 Ad ministered Social History Social History Additional Details Category Social Info Options Details Migrated Social History Migrated Social History Alcohol Intake: None 03/23/2020,Tobacco Years: Never smoker 03/23/2020,Smoking Status: 0 10/06/2020 Plan Of Treatment No Information Insurance Providers Payer Name Payer Address Payer Phone Subscriber Number Group Number Insured Name Patient Relationship to Insured Coverage Start Date Coverage End Date [employer] Medicare Replacement/ Advantage - [place] [address] [address] [place] [address] [id number] VIOLET DUMONT Self - patient is the insured Medical (General) History Surgical History Surgery Date(Month/Year) Removal of gallbladder (65863) Hysterectomy/revise vagina (66806)
== END 2025-02-19 13:09 | disposition home or self-care (01) ==
LOC: CHSIMG 13:10
PROVIDERS: PCP Nurse Practitioner Family; Visit Provider Nurse Practitioner Family
DX: Z12.31 Encounter for screening mammogram for malignant neoplasm of breast (principal)
CPT/HCPCS: 77063; 77067